=== PATIENT | male | born 1965 | race African-American/Black ===

== ENCOUNTER 2017-01-11 15:23 | Inpatient (IN) | payer OTHER ==
[2017-01-11 16:14] VITALS: BMI 24.1
--- NOTE | 2017-01-11 16:48 | HP ---
COWS - Scale Resting Pulse: 1= [place] 81-100 Sweatin=Flushed/Facial Moisture Restless Observation: 1= Difficult to Sit Still Pupil Size: 2= Moderately Dilated Bone or Joint Aches: 2= Severe Diffuse Aches Runny Nose/ Eye Tearin= Runny Nose/Eyes GI Upset > 30mins: 2= Nausea/Diarrhea Tremor Observation: 2= Slight Tremor Visible Yawning Observation: 1= 1-2x During Session Anxiety or Irritability: 2=Irritable/Anxious Goose Flesh Skin: 0=Smooth Skin COWS Score: 17 CIWA Score - CIWA Score Nausea/Vomitin Muscle Tremors: 4-Moderate,w/Arms Extend Anxiety: 4-Mod. Anxious/Guarded Agitation: 4-Moderately Restless Paroxysmal Sweats: 3 Orientation: 2-Disoriented Date<2 days Tacttile Disturbances: 0-None Auditory Disturbances: 0-None Visual Disturbances: 0-None Headache: 0-None Present CIWA-Ar Total Score: 20 Admission ROS BHS - HPI Chief Complaint: Withdrawal sx. Allergies/Adverse Reactions: Allergies Allergy/AdvReac Type Severity Reaction Status Date / Time shellfish derived Allergy Severe Rash Verified 01/11/17 16:15 turkey Allergy Severe Rash Verified 01/11/17 16:15 Penicillins Allergy Difficulty Verified 01/11/17 16:15 Breathing turkey Allergy Severe Rash Uncoded 01/11/17 16:15 History of Present Illness: 51 y/o man with a long hx of heroin & alcohol dependence is admitted for detox. Pt. has been in previous detox, denies significant sobriety or drug free. Exam Limitations: No Limitations - Ebola screening Have you traveled outside of the country in the last 21 days: No Have you had contact with anyone from an Ebola affected area: No Have you been sick,other than usual withdrawal symptoms: No Do you have a fever: No - Review of Systems Constitutional: Diaphoresis EENT: reports: Nose Congestion Respiratory: reports: No Symptoms reported Cardiac: reports: No Symptoms Reported GI: reports: No Symptoms Reported : reports: No Symptoms Reported Musculoskeletal: reports: Back Pain, Joint Pain Integumentary: reports: Sweating Neuro: reports: Tremors Endocrine: reports: No Symptoms Reported Hematology: reports: No Symptoms Reported Psychiatric: reports: No Sypmtoms Reported Other Systems: Reviewed and Negative Patient History - Patient Medical History Hx Anemia: No Hx Asthma: Yes Hx Chronic Obstructive Pulmonary Disease (COPD): Yes Hx Cancer: No Hx Cardiac Disorders: No Hx Congestive Heart Failure: No Hx Hypertension: Yes Hx Hypercholesterolemia: No Hx Pacemaker: No HX Cerebrovascular Accident: No Hx Seizures: No Hx Dementia: No Hx Diabetes: No Hx Gastrointestinal Disorders: No Hx Liver Disease: No Hx Genitourinary Disorders: No Hx Sexually Transmitted Disorders: No Hx Renal Disease (ESRD): No Hx Thyroid Disease: No Hx Human Immunodeficiency Virus (HIV): No Hx Hepatitis C: No Hx Depression: Yes Hx Suicide Attempt: No Hx Bipolar Disorder: No Hx Schizophrenia: No - Patient Surgical History Past Surgical History: No Hx Neurologic Surgery: No Hx Cataract Extraction: No Hx Cardiac Surgery: No Hx Lung Surgery: No Hx Breast Surgery: No Hx Breast Biopsy: No Hx Abdominal Surgery: No Hx Appendectomy: No Hx Cholecystectomy: No Hx Genitourinary Surgery: No Hx Section: No Hx Orthopedic Surgery: No Anesthesia Reaction: No - PPD History Previous Implant?: Yes Documented Results: Negative w/proof Implanted On Prior [facility] Admission?: Yes Date: 11/09/15 Results: 0 mm PPD to be Administered?: Yes - Smoking Cessation Smoking history: Current every day smoker Have you smoked in the past 12 months: Yes Aproximately how many cigarettes per day: 10 Hx Chewing Tobacco Use: No Initiated information on smoking cessation: Yes 'Breaking Loose' booklet given: 01/11/17 - Substance & Tx. History Hx Alcohol Use: Yes Hx Substance Use: Yes Substance Use Type: Alcohol, Heroin Hx Substance Use Treatment: Yes (Detox, last at [facility] in 10/2015) - Substances Abused Alcohol Route: Oral Frequency: Daily Amount used: Vodka 2 pints Age of first use: 13 Date of Last Use: 01/11/17 Heroin Route: Inhalation Frequency: Daily Amount used: 9 bags Age of first use: 37 Date of Last Use: 01/11/17 Family Disease History - Family Disease History Family Disease History: Heart Disease: Mother, CA: Father (ALCOHOLIC), Other: Father Admission Physical Exam BHS - Vital Signs Vital Signs: Vital Signs - 24 hr 01/11/17 16:11 Temperature 97.7 F Pulse Rate 93 H Respiratory 20 Rate Blood Pressure 111/67 - Physical General Appearance: Yes: Alcohol on Breath, Tremorous, Irritable, Sweating, Anxious HEENTM: Yes: Within Normal Limits Respiratory: Yes: Chest Non-Tender, Lungs Clear Neck: Yes: Supple Breast: Yes: Breast Exam Deferred Cardiology: Yes: Regular Rhythm, Regular Rate, S1, S2 Abdominal: Yes: Normal Bowel Sounds, Non Tender, Soft Genitourinary: Yes: Within Normal Limits Back: Yes: Within Normal Limits Musculoskeletal: Yes: Within Normal Limits Extremities: Yes: Tremors Neurological: Yes: Fully Oriented, Alert Integumentary: Yes: Diaphoresis Lymphatic: Yes: Within Normal Limits - Diagnostic (1) Alcohol dependence with uncomplicated withdrawal Current Visit: Yes Status: Acute (2) Opioid dependence with withdrawal Current Visit: Yes Status: Acute (3) Asthma Current Visit: Yes Status: Chronic Qualifiers: Asthma severity: mild persistent Asthma complication type: with status asthmaticus Qualified Code(s): J45.32 - Mild persistent asthma with status asthmaticus (4) COPD (chronic obstructive pulmonary disease) Current Visit: Yes Status: Chronic Qualifiers: COPD type: emphysema Emphysema type: panlobular Qualified Code(s ): J43.1 - Panlobular emphysema Cleared for Admission S - Detox or Rehab [facility] Level of Care: Medically Managed Detox Regimen/Protocol: Methadone/Librium [facility] Breath Alcohol Content Breath Alcohol Content: 0.126 Urine Drug Screen - Results Drug Screen Negative: No Urine Drug Screen Results: OPI-Opiates, BZO-Benzodiazepines, MTD-Methadone
[2017-01-11] MEDS ORDERED: NICOTINE POLACRILEX 2 MG GUM BC PRN (16:53)
[2017-01-11] MEDS ORDERED: MAG HYDROX/AL HYDROX/SIMETH 30 ML UNIT-DOSE CUP PO PRN (16:53)
[2017-01-11] MEDS ORDERED: MAGNESIUM HYDROX 2400MG/30ML ORAL SUSPENSION 30 ML CUP PO PRN (16:53)
[2017-01-11] MEDS ORDERED: MAGNESIUM CITRATE 300 ML BOTTLE PO PRN (16:53)
[2017-01-11] MEDS ORDERED: LOPERAMIDE HCL 2 MG CAPSULE PO PRN (16:53)
[2017-01-11] MEDS ORDERED: hydrOXYzine PAMOATE 50 MG CAPSULE (FP) PO PRN (16:53)
[2017-01-11] MEDS ORDERED: METHADONE HCL 10 MG TABLET (FOR DETOX USE ONLY) PO ONE ×2 (16:53→23:00)
[2017-01-11] MEDS ORDERED: P-EPHED 60MG/TRIPROLIDI 2.5MG TABLET PO PRN (16:53)
[2017-01-11] MEDS ORDERED: guaiFENesin/D-METHORPHAN HB 10 ML UNIT-DOSE CUPS PO PRN (16:53)
[2017-01-11] MEDS ORDERED: chlordiazePOXIDE HCL 25 MG CAPSULE PO PRN (16:53)
[2017-01-11] MEDS ORDERED: MENTHOL/PHENOL 1 EACH UD MM PRN (16:53)
[2017-01-11] MEDS ORDERED: ALBUTEROL SO4 6.7 GM HFA INHALER IH PRN (16:56)
[2017-01-11] MEDS: NICOTINE 21 MG/24 HOURS TOPICAL PATCH TD SCH (17:40)
[2017-01-11] MEDS: chlordiazePOXIDE HCL 25 MG CAPSULE PO SCH ×2 (17:46→22:23)
[2017-01-11] MEDS: amLODIPine BESYLATE 10 MG TABLET (FP) PO SCH (17:47)
[2017-01-11 19:39] LABS: PH,URINE 5.5 (5.0-8.0); URINE APPEARANCE CLEAR; URINE BILIRUBIN 1+ (NEGATIVE); URINE BLOOD TRACE-INTA (NEGATIVE); URINE COLOR YELLOW; URINE GLUCOSE (UA) NEGATIVE (NEGATIVE); URINE KETONE NEGATIVE (NEGATIVE); URINE LEUK ESTERASE NEGATIVE (NEGATIVE); URINE NITRITE NEGATIVE (NEGATIVE); URINE PROTEIN 1+ (NEGATIVE); URINE UROBILINOGEN 0.2 mg/dL (0.2-1.0)
[2017-01-11 19:52] LABS: URINE BACTERIA RARE /hpf (NONE SEEN); URINE HYALINE CAST 50 /lpf; URINE MUCUS MANY; URINE RBC 4 /hpf (0-3); URINE WBC 4 /hpf (3-5)
[2017-01-11] MEDS: BUDESONIDE/FORMETEROL FUMARATE 80/4.5 mcg INHALER IH SCH (22:24)
[2017-01-11] MEDS: THIAMINE HCL 100 MG TABLET (FP) PO SCH (22:24)
[2017-01-11] MEDS: diphenhydrAMINE HCL 50 MG CAPSULE PO PRN (22:25)
[2017-01-12] MEDS: chlordiazePOXIDE HCL 25 MG CAPSULE PO SCH ×4 (05:35→22:32)
--- NOTE | 2017-01-12 09:32 | EKG ---
Test Reason : Blood Pressure : / mmHG Vent. Rate : 077 BPM Atrial Rate : 077 BPM P-R Int : 168 ms QRS Dur : 090 ms QT Int : 380 ms P-R-T Axes : 076 067 060 degrees QTc Int : 430 ms NORMAL SINUS RHYTHM POSSIBLE LEFT ATRIAL ENLARGEMENT SEPTAL INFARCT , AGE UNDETERMINED ABNORMAL ECG NO PREVIOUS ECGS AVAILABLE Confirmed by TAMMI WADSWORTH MD ([id number]) on 01/12/2017 9:31:43 AM Referred By: Confirmed By:TAMMI WADSWORTH MD
[2017-01-12] MEDS ORDERED: METHADONE HCL 10 MG TABLET (FOR DETOX USE ONLY) PO SCH (10:00)
--- NOTE | 2017-01-12 10:15 | CONSULT ---
[facility] Psychiatric Consult - Data Date of interview: 01/12/17 Admission source: [facility] Identifying data: Readmission to [facility] for this 51 y/o AA male seeking detox treatment on for heroin and alcohol dependence.Patient is single without children,homeless,unemployed and deprived of any form of financial assistance. Substance Abuse History: Fully discussed with patient in this interview.Mr Zurita affirms that this report is a true reflection of his patterns of substance use. Smoking Cessation. Smoking history: Current every day smoker. Have you smoked in the past 12 months: Yes. Aproximately how many cigarettes per day: 10. Hx Chewing Tobacco Use: No. Initiated information on smoking cessation: Yes. 'Breaking Loose' booklet given: 01/11/17. - Substance & Tx. History. Hx Alcohol Use: Yes. Hx Substance Use: Yes. Substance Use Type: Alcohol, Heroin. Hx Substance Use Treatment: Yes (Detox, last at [facility] in 10/2015 ). - Substances Abused. Alcohol. Route: Oral. Frequency: Daily. Amount used: Vodka 2 pints. Age of first use: 13. Date of Last Use: 01/11/17. Heroin. Route: Inhalation. Frequency: Daily. Amount used: 9 bags. Age of first use: 37. Date of Last Use: 01/11/17 Medical History: Bronchial asthma and hypertension. Psychiatric History: Patient denies. Physical/Sexual Abuse/Trauma History: Patient denies. Additional Comment: Urine Drug Screen Results: OPI-Opiates, BZO-Benzodiazepines , MTD-Methadone.Noted. Mental Status Exam - Mental Status Exam Alert and Oriented to: Time, Place, Person Cognitive Function: Good Patient Appearance: Well Groomed Mood: Hopeful, Euthymic Affect: Appropriate, Normal Range Patient Behavior: Fatigued, Appropriate, Cooperative Speech Pattern: Clear Voice Loudness: Normal Thought Process: Goal Oriented Thought Disorder: Not Present Hallucinations: Denies Suicidal Ideation: Denies Homicidal Ideation: Denies Insight/Judgement: Poor Sleep: Poorly, Difficulty falling asleep Appetite: Good Muscle strength/Tone: Normal Gait/Station: Normal Psychiatric Findings - Problem List ([place] 1, 2,3) (1) Alcohol dependence with uncomplicated withdrawal Current Visit: Yes Status: Acute (2) Opioid dependence with withdrawal Current Visit: Yes Status: Acute (3) Nicotine dependence Current Visit: Yes Status: Acute Qualifiers: Nicotine product type: cigarettes Substance use status: uncomplicated Qualified Code(s): F17.210 - Nicotine dependence, cigarettes, uncomplicated (4) Drug-induced mood disorder Current Visit: Yes Status: Acute (5) Asthma Current Visit: Yes Status: Chronic Qualifiers: Asthma severity: mild persistent Asthma complication type: with status asthmaticus Qualified Code(s): J45.32 - Mild persistent asthma with status asthmaticus (6) COPD (chronic obstructive pulmonary disease) Current Visit: Yes Status: Chronic Qualifiers: COPD type: emphysema Emphysema type: panlobular Qualified Code(s ): J43.1 - Panlobular emphysema (7) Hypertension Current Visit: Yes Status: Chronic Qualifiers: Hypertension type: essential hypertension Qualified Code(s): I10 - Essential (primary) hypertension (8) Insomnia Current Visit: Yes Status: Acute - Initial Treatment Plan Initial Treatment Plan: Psychoeducation.Detoxification is under way.Ambien 10 mg po hs prn is prescribed to address insomnia.Patient is made aware of the potential for parasomnias.Consent (verbal) given to this designer/writer.Observation.
[2017-01-12] MEDS: PRENATAL VITAMINS W/ FOLIC ACID TABLET (FP) PO SCH (10:25)
[2017-01-12] MEDS: amLODIPine BESYLATE 10 MG TABLET (FP) PO SCH (10:25)
[2017-01-12] MEDS: NICOTINE 21 MG/24 HOURS TOPICAL PATCH TD SCH (10:25)
[2017-01-12 10:38] LABS: MCHC 33.4 g/dl (32.0-35.9); MEAN CELL VOLUME 86.9 fl (80-96); MEAN PLT VOLUME 8.8 fl (7.5-11.1); PLATELET COUNT 318 K/MM3 (134-434); RDW 14.4 % (11.9-15.9)
--- NOTE | 2017-01-12 10:38 | PN ---
[facility] CIWA - CIWA Score Nausea/Vomitin-Mild Nausea/No Vomiting Muscle Tremors: 3 Anxiety: 4-Mod. Anxious/Guarded Agitation: 3 Paroxysmal Sweats: 3 Orientation: 0-Oriented Tacttile Disturbances: 0-None Auditory Disturbances: 0-None Visual Disturbances: 0-None Headache: 0-None Present CIWA-Ar Total Score: 14 BHS COWS - Scale Resting Pulse: 0= [place] 80 or Below Sweatin=Flushed/Facial Moisture Restless Observation: 1= Difficult to Sit Still Pupil Size: 0= Normal to Room Light Bone or Joint Aches: 1= Mild Discomfort Runny Nose/ Eye Tearin= Runny Nose/Eyes GI Upset > 30mins: 2= Nausea/Diarrhea Tremor Observation of Outstretched Hands: 2= Slight Tremor Visible Yawning Observation: 1= 1-2x During Session Anxiety or Irritability: 2=Irritable/Anxious Goose Flesh Skin: 0=Smooth Skin COWS Score: 13 [facility] Progress Note (SOAP) Subjective: Anxiety,tremors,sweating,interrupted sleep,muscle aches,nausea. Objective: 01/12/17 10:38 Vital Signs - 8 hr 01/12/17 01/12/17 01/12/17 03:30 06:31 07:45 Temperature 97.3 F L Pulse Rate 76 72 Respiratory 18 18 Rate Blood Pressure 167/98 127/84 01/12/17 09:38 Temperature 97.0 F L Pulse Rate 77 Respiratory 20 Rate Blood Pressure 152/99 Laboratory Tests 01/11/17 19:00 Urine Color Yellow Urine Appearance Clear Urine pH 5.5 Ur Specific [place] >= 1.030 H Urine Protein 1+ H Urine Glucose (UA) Negative Urine Ketones Negative Urine Blood Trace-inta Urine Nitrite Negative Urine Bilirubin 1+ H Urine Urobilinogen 0.2 Ur Leukocyte Esterase Negative Urine RBC 4 Urine WBC 4 Ur Epithelial Cells Rare Urine Bacteria Rare Hyaline Casts 50 Urine Mucus Many u/a noted Assessment: 01/12/17 10:40 Withdrawal sx. Plan: Continue detox
[2017-01-12 10:49] LABS: ALBUMIN 3.3 g/dl (3.4-5.0); ANION GAP 7 (8-16); CALCIUM 8.9 mg/dL (8.5-10.1); CO2 27 mmol/L (21-32); GLUCOSE,RANDOM 103 mg/dL (74-106)
[2017-01-12 10:54] LABS: ALK PHOS 96 U/L (45-117); BILIRUBIN,TOTAL 0.2 mg/dL (0.2-1.0); CREATININE 1.1 mg/dL (0.7-1.3); SGOT/AST 16 U/L (15-37); SGPT/ALT 27 U/L (12-78); TOT PROT 6.7 g/dl (6.4-8.2)
[2017-01-12] MEDS: BUDESONIDE/FORMETEROL FUMARATE 80/4.5 mcg INHALER IH SCH ×2 (11:00→22:31)
[2017-01-12] MEDS: THIAMINE HCL 100 MG TABLET (FP) PO SCH (22:32)
[2017-01-12] MEDS: ZOLPIDEM TARTRATE 10 MG TABLET (PARK CARE ONLY) PO PRN (22:34)
[2017-01-13] MEDS: chlordiazePOXIDE HCL 25 MG CAPSULE PO SCH ×2 (05:28→10:25)
[2017-01-13] MEDS ORDERED: cloNIDine HCL 0.1 MG TABLET PO ONE (07:16)
--- NOTE | 2017-01-13 07:19 | PN ---
[facility] Progress Note Note: BP 146/104,WITHDRAWAL SYMPTOM,CLONIDINE 0.1 MG PO NOW
[2017-01-13] MEDS: NICOTINE 21 MG/24 HOURS TOPICAL PATCH TD SCH (10:25)
[2017-01-13] MEDS: amLODIPine BESYLATE 10 MG TABLET (FP) PO SCH (10:25)
[2017-01-13] MEDS: METHADONE HCL 5 MG TABLET (FOR DETOX USE ONLY) PO SCH (10:25)
[2017-01-13] MEDS: PRENATAL VITAMINS W/ FOLIC ACID TABLET (FP) PO SCH (10:25)
[2017-01-13] MEDS: BUDESONIDE/FORMETEROL FUMARATE 80/4.5 mcg INHALER IH SCH ×2 (10:26→22:34)
--- NOTE | 2017-01-13 12:48 | PN ---
[facility] CIWA - CIWA Score Nausea/Vomitin-No Nausea/No Vomiting Muscle Tremors: 3 Anxiety: 4-Mod. Anxious/Guarded Agitation: 3 Paroxysmal Sweats: 3 Orientation: 0-Oriented Tacttile Disturbances: 0-None Auditory Disturbances: 0-None Visual Disturbances: 0-None Headache: 0-None Present CIWA-Ar Total Score: 13 [facility] COWS - Scale Resting Pulse: 0= [place] 80 or Below Sweatin=Flushed/Facial Moisture Restless Observation: 1= Difficult to Sit Still Pupil Size: 0= Normal to Room Light Bone or Joint Aches: 1= Mild Discomfort Runny Nose/ Eye Tearin= Nasal Congestion GI Upset > 30mins: 1= Stomach Cramp Tremor Observation of Outstretched Hands: 2= Slight Tremor Visible Yawning Observation: 1= 1-2x During Session Anxiety or Irritability: 2=Irritable/Anxious Goose Flesh Skin: 0=Smooth Skin COWS Score: 11 S Progress Note (SOAP) Subjective: Sweating,interrupted sleep,anxiety,tremors,restless,muscle aches Objective: 01/13/17 12:45 Vital Signs - 8 hr 01/13/17 01/13/17 06:26 09:58 Temperature 97.9 F 99.0 F Pulse Rate 65 75 Respiratory 18 20 Rate Blood Pressure 145/94 135/97 Laboratory Tests 01/11/17 01/12/17 01/12/17 19:00 07:00 07:00 WBC 8.0 RBC 4.62 Hgb 13.4 Hct 40.1 MCV 86.9 MCH 29.0 MCHC 33.4 RDW 14.4 D Plt Count 318 MPV 8.8 Sodium 139 Potassium 3.9 Chloride 105 Carbon Dioxide 27 Anion Gap 7 L BUN 19 H Creatinine 1.1 Creat Clearance w eGFR > 60 Random Glucose 103 Calcium 8.9 Total Bilirubin 0.2 D AST 16 ALT 27 Alkaline Phosphatase 96 Total Protein 6.7 Albumin 3.3 L Urine Color Yellow Urine Appearance Clear Urine pH 5.5 Ur Specific [place] >= 1.030 H Urine Protein 1+ H Urine Glucose (UA) Negative Urine Ketones Negative Urine Blood Trace-inta Urine Nitrite Negative Urine Bilirubin 1+ H Urine Urobilinogen 0.2 Ur Leukocyte Esterase Negative Urine RBC 4 Urine WBC 4 Ur Epithelial Cells Rare Urine Bacteria Rare Hyaline Casts 50 Urine Mucus Many RPR Titer 01/12/17 07:00 WBC RBC Hgb Hct MCV MCH MCHC RDW Plt Count MPV Sodium Potassium Chloride Carbon Dioxide Anion Gap BUN Creatinine Creat Clearance w eGFR Random Glucose Calcium Total Bilirubin AST ALT Alkaline Phosphatase Total Protein Albumin Urine Color Urine Appearance Urine pH Ur Specific [place] Urine Protein Urine Glucose (UA) Urine Ketones Urine Blood Urine Nitrite Urine Bilirubin Urine Urobilinogen Ur Leukocyte Esterase Urine RBC Urine WBC Ur Epithelial Cells Urine Bacteria Hyaline Casts Urine Mucus RPR Titer Nonreactive labs noted Assessment: 01/13/17 12:47 Withdrawal sx. Plan: Continue detox
[2017-01-13] MEDS: chlordiazePOXIDE 5 MG CAPSULE PO SCH ×2 (17:23→22:30)
[2017-01-13] MEDS: THIAMINE HCL 100 MG TABLET (FP) PO SCH (22:30)
[2017-01-13] MEDS: ZOLPIDEM TARTRATE 10 MG TABLET (PARK CARE ONLY) PO PRN (22:32)
[2017-01-13] MEDS: TOLNAFTATE 1% CREAM 15 GM TUBE TP SCH (22:33)
[2017-01-14] MEDS: ACETAMINOPHEN 325 MG TABLET (FP) PO PRN (01:15)
[2017-01-14] MEDS: chlordiazePOXIDE 5 MG CAPSULE PO SCH ×2 (05:46→10:33)
[2017-01-14] MEDS ORDERED: cloNIDine HCL 0.1 MG TABLET PO ONE (06:36)
[2017-01-14] MEDS: METHADONE HCL 5 MG TABLET (FOR DETOX USE ONLY) PO SCH (10:33)
[2017-01-14] MEDS: amLODIPine BESYLATE 10 MG TABLET (FP) PO SCH (10:33)
[2017-01-14] MEDS: PRENATAL VITAMINS W/ FOLIC ACID TABLET (FP) PO SCH (10:33)
[2017-01-14] MEDS: TOLNAFTATE 1% CREAM 15 GM TUBE TP SCH ×2 (10:34→22:18)
[2017-01-14] MEDS: BUDESONIDE/FORMETEROL FUMARATE 80/4.5 mcg INHALER IH SCH ×2 (10:34→22:18)
[2017-01-14] MEDS: NICOTINE 21 MG/24 HOURS TOPICAL PATCH TD SCH ×2 (10:34→10:36)
--- NOTE | 2017-01-14 10:56 | PN ---
[facility] Progress Note (SOAP) Subjective: Sweating, Hot / Cold sensations, Chills, Diarrhea, Interrupted Sleep, Body Aches. Objective: PT. A & O X 3, OBSERVED AMBULATING ON UNIT. NO ACUTE DISTRESS. PT. DENIES CHEST PAIN. 01/14/17 10:54 Vital Signs Temperature 98.3 F 01/14/17 09:58 Pulse Rate 70 01/14/17 09:58 Respiratory Rate 18 01/14/17 09:58 Blood Pressure 131/90 01/14/17 09:58 O2 Sat by Pulse Oximetry (%) Laboratory Tests 01/11/17 01/12/17 01/12/17 19:00 07:00 07:00 WBC 8.0 RBC 4.62 Hgb 13.4 Hct 40.1 MCV 86.9 MCH 29.0 MCHC 33.4 RDW 14.4 D Plt Count 318 MPV 8.8 Sodium 139 Potassium 3.9 Chloride 105 Carbon Dioxide 27 Anion Gap 7 L BUN 19 H Creatinine 1.1 Creat Clearance w eGFR > 60 Random Glucose 103 Calcium 8.9 Total Bilirubin 0.2 D AST 16 ALT 27 Alkaline Phosphatase 96 Total Protein 6.7 Albumin 3.3 L Urine Color Yellow Urine Appearance Clear Urine pH 5.5 Ur Specific [place] >= 1.030 H Urine Protein 1+ H Urine Glucose (UA) Negative Urine Ketones Negative Urine Blood Trace-inta Urine Nitrite Negative Urine Bilirubin 1+ H Urine Urobilinogen 0.2 Ur Leukocyte Esterase Negative Urine RBC 4 Urine WBC 4 Ur Epithelial Cells Rare Urine Bacteria Rare Hyaline Casts 50 Urine Mucus Many RPR Titer 01/12/17 07:00 WBC RBC Hgb Hct MCV MCH MCHC RDW Plt Count MPV Sodium Potassium Chloride Carbon Dioxide Anion Gap BUN Creatinine Creat Clearance w eGFR Random Glucose Calcium Total Bilirubin AST ALT Alkaline Phosphatase Total Protein Albumin Urine Color Urine Appearance Urine pH Ur Specific [place] Urine Protein Urine Glucose (UA) Urine Ketones Urine Blood Urine Nitrite Urine Bilirubin Urine Urobilinogen Ur Leukocyte Esterase Urine RBC Urine WBC Ur Epithelial Cells Urine Bacteria Hyaline Casts Urine Mucus RPR Titer Nonreactive LABS NOTED. Assessment: 01/14/17 10:55 WITHDRAWAL SYMPTOMS. Plan: CONTINUE DETOX.
[2017-01-14] MEDS: chlordiazePOXIDE HCL 10 MG CAPSULE PO SCH ×2 (17:09→23:22)
[2017-01-14] MEDS: IBUPROFEN 400 MG TABLET (FP) PO PRN (22:20)
[2017-01-14] MEDS: ZOLPIDEM TARTRATE 10 MG TABLET (PARK CARE ONLY) PO PRN (22:20)
[2017-01-14] MEDS: THIAMINE HCL 100 MG TABLET (FP) PO SCH (22:21)
[2017-01-15] MEDS: chlordiazePOXIDE HCL 10 MG CAPSULE PO SCH ×2 (05:36→10:32)
[2017-01-15] MEDS ORDERED: METHADONE HCL 10 MG TABLET (FOR DETOX USE ONLY) PO SCH (10:00)
[2017-01-15] MEDS: BUDESONIDE/FORMETEROL FUMARATE 80/4.5 mcg INHALER IH SCH ×2 (10:31→22:20)
[2017-01-15] MEDS: NICOTINE 21 MG/24 HOURS TOPICAL PATCH TD SCH (10:32)
[2017-01-15] MEDS: PRENATAL VITAMINS W/ FOLIC ACID TABLET (FP) PO SCH (10:32)
[2017-01-15] MEDS: amLODIPine BESYLATE 10 MG TABLET (FP) PO SCH (10:32)
[2017-01-15] MEDS: TOLNAFTATE 1% CREAM 15 GM TUBE TP SCH ×2 (10:32→22:22)
--- NOTE | 2017-01-15 11:50 | PN ---
[facility] Progress Note (SOAP) Subjective: nausea, sweats, interrupted sleep, anxiety, tremors Objective: 01/15/17 11:33 Vital Signs - 8 hr 01/15/17 01/15/17 06:45 10:05 Temperature 97.1 F L 97 F L Pulse Rate 67 75 Respiratory 18 20 Rate Blood Pressure 130/79 113/75 Laboratory Tests 01/11/17 01/12/17 01/12/17 19:00 07:00 07:00 WBC 8.0 RBC 4.62 Hgb 13.4 Hct 40.1 MCV 86.9 MCH 29.0 MCHC 33.4 RDW 14.4 D Plt Count 318 MPV 8.8 Sodium 139 Potassium 3.9 Chloride 105 Carbon Dioxide 27 Anion Gap 7 L BUN 19 H Creatinine 1.1 Creat Clearance w eGFR > 60 Random Glucose 103 Calcium 8.9 Total Bilirubin 0.2 D AST 16 ALT 27 Alkaline Phosphatase 96 Total Protein 6.7 Albumin 3.3 L Urine Color Yellow Urine Appearance Clear Urine pH 5.5 Ur Specific [place] >= 1.030 H Urine Protein 1+ H Urine Glucose (UA) Negative Urine Ketones Negative Urine Blood Trace-inta Urine Nitrite Negative Urine Bilirubin 1+ H Urine Urobilinogen 0.2 Ur Leukocyte Esterase Negative Urine RBC 4 Urine WBC 4 Ur Epithelial Cells Rare Urine Bacteria Rare Hyaline Casts 50 Urine Mucus Many RPR Titer 01/12/17 07:00 WBC RBC Hgb Hct MCV MCH MCHC RDW Plt Count MPV Sodium Potassium Chloride Carbon Dioxide Anion Gap BUN Creatinine Creat Clearance w eGFR Random Glucose Calcium Total Bilirubin AST ALT Alkaline Phosphatase Total Protein Albumin Urine Color Urine Appearance Urine pH Ur Specific [place] Urine Protein Urine Glucose (UA) Urine Ketones Urine Blood Urine Nitrite Urine Bilirubin Urine Urobilinogen Ur Leukocyte Esterase Urine RBC Urine WBC Ur Epithelial Cells Urine Bacteria Hyaline Casts Urine Mucus RPR Titer Nonreactive Assessment: 01/15/17 11:51 withdrawal sx Plan: cont detox
[2017-01-15] MEDS: ACETAMINOPHEN 325 MG TABLET (FP) PO PRN (17:24)
[2017-01-15] MEDS: THIAMINE HCL 100 MG TABLET (FP) PO SCH (22:21)
[2017-01-15] MEDS: diphenhydrAMINE HCL 50 MG CAPSULE PO PRN (22:21)
[2017-01-16] MEDS: IBUPROFEN 400 MG TABLET (FP) PO PRN (05:28)
[2017-01-16] MEDS ORDERED: METHADONE HCL 5 MG TABLET (FOR DETOX USE ONLY) PO SCH (06:00)
[2017-01-16 06:40] VITALS: BP 127/85; PULSE 74; TEMP 97.6
[2017-01-16] MEDS: NICOTINE 21 MG/24 HOURS TOPICAL PATCH TD SCH (10:06)
[2017-01-16] MEDS: amLODIPine BESYLATE 10 MG TABLET (FP) PO SCH (10:06)
[2017-01-16] MEDS: BUDESONIDE/FORMETEROL FUMARATE 80/4.5 mcg INHALER IH SCH (10:07)
[2017-01-16] MEDS: PRENATAL VITAMINS W/ FOLIC ACID TABLET (FP) PO SCH (10:07)
[2017-01-16] MEDS: TOLNAFTATE 1% CREAM 15 GM TUBE TP SCH (10:07)
--- NOTE | 2017-01-16 10:30 | DS ---
[facility] Detox Discharge Summary Admission Date: 01/11/17 Discharge Date: 01/16/17 - History Present History: Alcohol Dependence, Cannabis Dependence, Opioid Dependence Pertinent Past History: HTN Asthma COPD - Physical Exam Results Vital Signs: Vital Signs Temperature 97.6 F 01/16/17 06:40 Pulse Rate 74 01/16/17 06:40 Respiratory Rate 18 01/16/17 06:40 Blood Pressure 127/85 01/16/17 06:40 O2 Sat by Pulse Oximetry (%) Pertinent Admission Physical Exam Findings: Withdrawal sx. Laboratory Last Values WBC 8.0 K/mm3 (4.0-10.0) 01/12/17 07:00 RBC 4.62 M/mm3 (4.00-5.60) 01/12/17 07:00 Hgb 13.4 GM/dL (11.7-16.9) 01/12/17 07:00 Hct 40.1 % (35.4-49) 01/12/17 07:00 MCV 86.9 fl (80-96) 01/12/17 07:00 MCH 29.0 pg (25.7-33.7) 01/12/17 07:00 MCHC 33.4 g/dl (32.0-35.9) 01/12/17 07:00 RDW 14.4 % (11.9-15.9) D 01/12/17 07:00 Plt Count 318 K/MM3 (134-434) 01/12/17 07:00 MPV 8.8 fl (7.5-11.1) 01/12/17 07:00 Sodium 139 mmol/L (136-145) 01/12/17 07:00 Potassium 3.9 mmol/L (3.5-5.1) 01/12/17 07:00 Chloride 105 mmol/L (98-107) 01/12/17 07:00 Carbon Dioxide 27 mmol/L (21-32) 01/12/17 07:00 Anion Gap 7 (8-16) L 01/12/17 07:00 BUN 19 mg/dL (7-18) H 01/12/17 07:00 Creatinine 1.1 mg/dL (0.7-1.3) 01/12/17 07:00 Creat Clearance w eGFR > 60 (>60) 01/12/17 07:00 Random Glucose 103 mg/dL (74-106) 01/12/17 07:00 Calcium 8.9 mg/dL (8.5-10.1) 01/12/17 07:00 Total Bilirubin 0.2 mg/dL (0.2-1.0) D 01/12/17 07:00 AST 16 U/L (15-37) 01/12/17 07:00 ALT 27 U/L (12-78) 01/12/17 07:00 Alkaline Phosphatase 96 U/L (45-117) 01/12/17 07:00 Total Protein 6.7 g/dl (6.4-8.2) 01/12/17 07:00 Albumin 3.3 g/dl (3.4-5.0) L 01/12/17 07:00 Urine Color Yellow 01/11/17 19:00 Urine Appearance Clear 01/11/17 19:00 Urine pH 5.5 (5.0-8.0) 01/11/17 19:00 Ur Specific [place] >= 1.030 (1.005-1.025) H 01/11/17 19:00 Urine Protein 1+ (NEGATIVE) H 01/11/17 19:00 Urine Glucose (UA) Negative (NEGATIVE) 01/11/17 19:00 Urine Ketones Negative (NEGATIVE) 01/11/17 19:00 Urine Blood Trace-inta (NEGATIVE) 01/11/17 19:00 Urine Nitrite Negative (NEGATIVE) 01/11/17 19:00 Urine Bilirubin 1+ (NEGATIVE) H 01/11/17 19:00 Urine Urobilinogen 0.2 mg/dL (0.2-1.0) 01/11/17 19:00 Ur Leukocyte Esterase Negative (NEGATIVE) 01/11/17 19:00 Urine RBC 4 /hpf (0-3) 01/11/17 19:00 Urine WBC 4 /hpf (3-5) 01/11/17 19:00 Ur Epithelial Cells Rare /hpf (FEW) 01/11/17 19:00 Urine Bacteria Rare /hpf (NONE SEEN) 01/11/17 19:00 Hyaline Casts 50 /lpf 01/11/17 19:00 Urine Mucus Many 01/11/17 19:00 RPR Titer Nonreactive (NONREACTIVE) 01/12/17 07:00 labs noted - Treatment Hospital Course: Detox Protocol Followed, Detoxed Safely, Responded well, Discharged Condition Good, Rehab Referral Accepted Patient has Accepted a Rehab Referral to: [facility] - Medication Discharge Medications: Ambulatory Orders Albuterol Sulfate Inhaler - [Ventolin HFA Inhaler -] 2 inh IH Q4H PRN #1 inh Amlodipine Besylate [Norvasc -] 10 mg PO DAILY #0 tablet 11/23/14 Budesonide/Formeterol Fumarate [SYMBICORT 80/4.5mcg -] 2 inh IH BID #1 inhaler 11/23/14 - Diagnosis (1) Alcohol dependence with uncomplicated withdrawal Status: Acute (2) Opioid dependence with withdrawal Status: Acute (3) Asthma Status: Chronic Qualifiers: Asthma severity: mild persistent Asthma complication type: with status asthmaticus Qualified Code(s): J45.32 - Mild persistent asthma with status asthmaticus (4) COPD (chronic obstructive pulmonary disease) Status: Chronic Qualifiers: COPD type: emphysema Emphysema type: panlobular Qualified Code(s ): J43.1 - Panlobular emphysema - AMA Did Patient Leave Against Medical Advice: No
== END 2017-01-16 10:08 | disposition home or self-care (01) | DRG 773 ==
LOC: YASAS 15:23 → Y3N 17:04
PROVIDERS: ADMIT Internal Medicine; ATTEND Internal Medicine
PROC: HZ2ZZZZ Detoxification Services for Substance Abuse Treatment (ICD-10-PCS; principal; 2017-01-11)
DX: F11.23 Opioid dependence with withdrawal (principal); F10.230 Alcohol dependence with withdrawal, uncomplicated; F17.210 Nicotine dependence, cigarettes, uncomplicated; F19.24 Other psychoactive substance dependence with psychoactive substance-induced mood disorder; J45.32 Mild persistent asthma with status asthmaticus; J43.1 Panlobular emphysema; I10 Essential (primary) hypertension; G47.00 Insomnia, unspecified; Z91.013 Allergy to seafood; Z91.018 Allergy to other foods; Z88.0 Allergy status to penicillin; Z59.0 Homelessness
CPT/HCPCS: 36415; 80053; 81003; 81015; 85027; 86593; 93005; 93010

== ENCOUNTER 2017-02-14 10:17 | Inpatient (IN) | payer OTHER ==
[2017-02-14 10:53] VITALS: BMI 24.1
--- NOTE | 2017-02-14 11:45 | HP ---
COWS - Scale Resting Pulse: 0= [place] 80 or Below Sweatin= No chills or Flushing Restless Observation: 0= Sits Still Pupil Size: 0= Normal to Room Light Bone or Joint Aches: 1= Mild Discomfort Runny Nose/ Eye Tearin= Nasal Congestion GI Upset > 30mins: 1= Stomach Cramp Tremor Observation: 1= Tremor [place], Not Seen Yawning Observation: 1= 1-2x During Session Anxiety or Irritability: 1=Feels Anxious/Irritable Goose Flesh Skin: 0=Smooth Skin COWS Score: 6 CIWA Score - CIWA Score Nausea/Vomitin-Mild Nausea/No Vomiting Muscle Tremors: 4-Moderate,w/Arms Extend Anxiety: 4-Mod. Anxious/Guarded Agitation: 1-Slight > Activity Paroxysmal Sweats: 1-Minimal Palms Moist Orientation: 0-Oriented Tacttile Disturbances: 1-Very Mild Itch/Numbness Auditory Disturbances: 1-Very Mild Visual Disturbances: 1-Very Mild Sensitivity Headache: 2-Mild CIWA-Ar Total Score: 16 Admission [facility] - HPI Chief Complaint: I need help to stop Allergies/Adverse Reactions: Allergies Allergy/AdvReac Type Severity Reaction Status Date / Time shellfish derived Allergy Severe Rash Verified 01/11/17 16:15 turkey Allergy Severe Rash Verified 01/11/17 16:15 Penicillins Allergy Difficulty Verified 01/11/17 16:15 Breathing turkey Allergy Severe Rash Uncoded 01/11/17 16:15 History of Present Illness: 52 yo gentleman here for detox from alcohol and heroin - no seizures, previously here in detox 01/14/17 but unable to get bed at [facility] rehab and relapsed. Exam Limitations: Clinical Condition - Ebola screening Have you traveled outside of the country in the last 21 days: No Have you had contact with anyone from an Ebola affected area: No Have you been sick,other than usual withdrawal symptoms: No Do you have a fever: No - Review of Systems Constitutional: Loss of Appetite, Night Sweats, Changes in sleep EENT: reports: Blurred Vision, Nose Congestion Respiratory: reports: No Symptoms reported Cardiac: reports: No Symptoms Reported GI: reports: Nausea, Poor Appetite : reports: No Symptoms Reported Musculoskeletal: reports: Back Pain, Muscle Pain Integumentary: reports: No Symptoms Reported Neuro: reports: Headache, Tremors Endocrine: reports: No Symptoms Reported Hematology: reports: No Symptoms Reported Psychiatric: reports: Judgement Intact, Mood/Affect Appropiate, Orientated x3 Other Systems: Reviewed and Negative Patient History - Patient Medical History Hx Anemia: No Hx Asthma: Yes Hx Chronic Obstructive Pulmonary Disease (COPD): Yes (no meds x 1 yeara) Hx Cancer: No Hx Cardiac Disorders: No Hx Congestive Heart Failure: No Hx Hypertension: Yes Hx Hypercholesterolemia: No Hx Pacemaker: No HX Cerebrovascular Accident: No Hx Seizures: No Hx Dementia: No Hx Diabetes: No Hx Gastrointestinal Disorders: No Hx Liver Disease: No Hx Genitourinary Disorders: No Hx Sexually Transmitted Disorders: No Hx Renal Disease (ESRD): No Hx Thyroid Disease: No Hx Human Immunodeficiency Virus (HIV): No Hx Hepatitis C: No Hx Depression: Yes Hx Suicide Attempt: No Hx Bipolar Disorder: No Hx Schizophrenia: No - Patient Surgical History Past Surgical History: No Hx Neurologic Surgery: No Hx Cataract Extraction: No Hx Cardiac Surgery: No Hx Lung Surgery: No Hx Breast Surgery: No Hx Breast Biopsy: No Hx Abdominal Surgery: No Hx Appendectomy: No Hx Cholecystectomy: No Hx Genitourinary Surgery: No Hx Section: No Hx Orthopedic Surgery: No Anesthesia Reaction: No - PPD History Previous Implant?: Yes Documented Results: Negative w/proof Date: 01/13/17 Results: 0 mm PPD to be Administered?: No - Reproductive History Patient is a Female of Child Bearing Age (11 -55 yrs old): No - Smoking Cessation Smoking history: Current every day smoker Have you smoked in the past 12 months: Yes Aproximately how many cigarettes per day: 20 Hx Chewing Tobacco Use: No Initiated information on smoking cessation: Yes 'Breaking Loose' booklet given: 02/14/17 - Substance & Tx. History Hx Alcohol Use: Yes Hx Substance Use: Yes Substance Use Type: Alcohol, Heroin Hx Substance Use Treatment: Yes (detox, suboxone) - Substances Abused Alcohol Route: Oral Frequency: Daily Amount used: 1-2 pints Age of first use: 15 Date of Last Use: 02/13/17 Heroin Route: Inhalation Frequency: Daily Amount used: 7 bags Age of first use: 26 Date of Last Use: 02/13/17 Family Disease History - Family Disease History Family Disease History: Heart Disease: Mother (), CA: Father (, ALCOHOLIC), Other: Father, Mother Admission Physical Exam [facility] - Vital Signs Vital Signs: Vital Signs - 24 hr 02/14/17 10:51 Temperature 96.5 F L Pulse Rate 61 Respiratory 20 Rate Blood Pressure 103/68 - Physical General Appearance: Yes: Nourished, Appropriately Dressed, Mild Distress HEENTM: Yes: Hearing grossly Normal, Normal ENT Inspection, Normocephalic, Normal Voice Respiratory: Yes: Normal Breath Sounds, No Respiratory Distress Neck: Yes: No masses,lesions,Nodules, Supple Breast: Yes: Breast Exam Deferred Cardiology: Yes: Regular Rhythm, Regular Rate Abdominal: Yes: Soft Genitourinary: Yes: Frequency Back: Yes: Normal Inspection Musculoskeletal: Yes: full range of Motion, Gait Steady Extremities: Yes: Normal Inspection, Normal Range of Motion, Non-Tender Neurological: Yes: Fully Oriented, Alert, Normal Mood/Affect, Normal Response Integumentary: Yes: Normal Color, Warm Lymphatic: Yes: Within Normal Limits - Diagnostic (1) Opioid dependence with withdrawal Current Visit: Yes Status: Chronic (2) Alcohol dependence with uncomplicated withdrawal Current Visit: Yes Status: Chronic (3) Nicotine dependence Current Visit: Yes Status: Chronic Qualifiers: Nicotine product type: cigarettes Substance use status: uncomplicated Qualified Code(s): F17.210 - Nicotine dependence, cigarettes, uncomplicated (4) Hypertension Current Visit: Yes Status: Chronic Qualifiers: Hypertension type: essential hypertension Qualified Code(s): I10 - Essential (primary) hypertension Cleared for Admission [facility] - Detox or Rehab [facility] Level of Care: Medically Managed Detox Regimen/Protocol: Methadone/Librium [facility] Breath Alcohol Content Breath Alcohol Content: 0 Urine Drug Screen - Results Drug Screen Negative: No Urine Drug Screen Results: OPI-Opiates, BZO-Benzodiazepines, MTD-Methadone
[2017-02-14] MEDS ORDERED: diphenhydrAMINE HCL 50 MG CAPSULE PO PRN (11:49)
[2017-02-14] MEDS ORDERED: P-EPHED 60MG/TRIPROLIDI 2.5MG TABLET PO PRN (11:49)
[2017-02-14] MEDS ORDERED: MAG HYDROX/AL HYDROX/SIMETH 30 ML UNIT-DOSE CUP PO PRN (11:49)
[2017-02-14] MEDS ORDERED: MAGNESIUM CITRATE 300 ML BOTTLE PO PRN (11:49)
[2017-02-14] MEDS ORDERED: guaiFENesin/D-METHORPHAN HB 10 ML UNIT-DOSE CUPS PO PRN (11:49)
[2017-02-14] MEDS ORDERED: ACETAMINOPHEN 325 MG TABLET (FP) PO PRN (11:49)
[2017-02-14] MEDS ORDERED: MAGNESIUM HYDROX 2400MG/30ML ORAL SUSPENSION 30 ML CUP PO PRN (11:49)
[2017-02-14] MEDS ORDERED: IBUPROFEN 400 MG TABLET (FP) PO PRN (11:49)
[2017-02-14] MEDS ORDERED: LOPERAMIDE HCL 2 MG CAPSULE PO PRN (11:49)
[2017-02-14] MEDS ORDERED: MENTHOL/PHENOL 1 EACH UD MM PRN (11:49)
[2017-02-14] MEDS ORDERED: METHADONE HCL 10 MG TABLET (FOR DETOX USE ONLY) PO ONE ×3 (11:49→23:00)
[2017-02-14] MEDS ORDERED: chlordiazePOXIDE HCL 25 MG CAPSULE PO PRN (11:49)
[2017-02-14] MEDS ORDERED: hydrOXYzine PAMOATE 25 MG CAPSULE (FP) PO PRN (11:49)
[2017-02-14] MEDS ORDERED: chlordiazePOXIDE HCL 25 MG CAPSULE PO ONE (14:00)
[2017-02-14] MEDS: NICOTINE 21 MG/24 HOURS TOPICAL PATCH TD SCH (14:40)
[2017-02-14 17:40] LABS: URINE APPEARANCE SLCLOUDY; URINE BILIRUBIN NEGATIVE (NEGATIVE); URINE BLOOD NEGATIVE (NEGATIVE); URINE COLOR DKYELLOW; URINE GLUCOSE (UA) NEGATIVE (NEGATIVE); URINE KETONE TRACE (NEGATIVE); URINE LEUK ESTERASE NEGATIVE (NEGATIVE); URINE NITRITE NEGATIVE (NEGATIVE)
[2017-02-14 17:49] LABS: URINE PROTEIN 1+ (NEGATIVE)
[2017-02-14] MEDS: chlordiazePOXIDE HCL 25 MG CAPSULE PO SCH ×2 (17:50→22:52)
[2017-02-14 18:02] LABS: URINE HYALINE CAST 1 /lpf; URINE MUCUS RARE; URINE RBC 3 /hpf (0-3); URINE WBC 2 /hpf (3-5)
[2017-02-14] MEDS: THIAMINE HCL 100 MG TABLET (FP) PO SCH (22:53)
[2017-02-15] MEDS: chlordiazePOXIDE HCL 25 MG CAPSULE PO SCH ×4 (05:17→22:22)
[2017-02-15] MEDS ORDERED: METHADONE HCL 10 MG TABLET (FOR DETOX USE ONLY) PO SCH (10:00)
[2017-02-15] MEDS: PRENATAL VITAMINS W/ FOLIC ACID TABLET (FP) PO SCH (10:20)
[2017-02-15] MEDS: NICOTINE 21 MG/24 HOURS TOPICAL PATCH TD SCH (10:21)
[2017-02-15] MEDS: amLODIPine BESYLATE 10 MG TABLET (FP) PO SCH (10:21)
[2017-02-15 10:31] LABS: MCH 28.3 pg (25.7-33.7); MCHC 32.5 g/dl (32.0-35.9); MEAN PLT VOLUME 7.8 fl (7.5-11.1); PLATELET COUNT 381 K/MM3 (134-434); RDW 14.3 % (11.9-15.9); WHITE BLOOD COUNT 8.5 K/mm3 (4.0-10.0)
--- NOTE | 2017-02-15 10:37 | CONSULT ---
[facility] Psychiatric Consult - Data Date of interview: 02/15/17 Admission source: Self-referred Identifying data: Mr Zurita is a 52 years old single Black male, unemployed with no source of income, homeless seeking detox treatment for alcohol and heroin Medical History: Significant for Bronchial asthma and hypertension. Psychiatric History: Reports that in 2006, he saw a psychiatrist at a substance abuse program and was prescribed Suboxin and Abilify for depression. Claims that he only took Abilify untill his 30 days supply ran out. However since 2013 , he has had 5 inpatient detox and one inpatient rehab admissions to this facilty and for all of them he never reported prior psychiatric treatment with Abilify. When confronted about that, he got angry, walked out of the office saying:"I will get it somewhere else" Mental Status Exam - Mental Status Exam Alert and Oriented to: Time, Place, Person Cognitive Function: Fair Patient Appearance: Well Groomed Mood: Irritable Affect: Appropriate Patient Behavior: Cooperative Speech Pattern: Clear Voice Loudness: Normal Thought Process: Intact, Goal Oriented Hallucinations: Denies Suicidal Ideation: Denies Homicidal Ideation: Denies Insight/Judgement: Poor Sleep: Poorly Appetite: Good Muscle strength/Tone: Normal Gait/Station: Normal Psychiatric Findings - Problem List (Holderness 1, 2,3) (1) Substance induced mood disorder Current Visit: Yes Status: Acute (2) Alcohol dependence with uncomplicated withdrawal Current Visit: Yes Status: Chronic (3) Opioid dependence with withdrawal Current Visit: Yes Status: Chronic (4) Nicotine dependence Current Visit: Yes Status: Chronic Qualifiers: Nicotine product type: cigarettes Substance use status: uncomplicated Qualified Code(s): F17.210 - Nicotine dependence, cigarettes, uncomplicated (5) Hypertension Current Visit: Yes Status: Chronic Qualifiers: Hypertension type: essential hypertension Qualified Code(s): I10 - Essential (primary) hypertension (6) Asthma Current Visit: No Status: Chronic Qualifiers: Asthma severity: mild persistent Asthma complication type: with status asthmaticus Qualified Code(s): J45.32 - Mild persistent asthma with status asthmaticus (7) COPD (chronic obstructive pulmonary disease) Current Visit: No Status: Chronic Qualifiers: COPD type: emphysema Emphysema type: panlobular Qualified Code(s ): J43.1 - Panlobular emphysema (8) Substance-induced sleep disorder Current Visit: Yes Status: Acute - Initial Treatment Plan Initial Treatment Plan: 1) Start Ambien 10 mg po HS prn for insomnia. 2) Continue inpatient detoxification
[2017-02-15 10:49] LABS: ALBUMIN 3.3 g/dl (3.4-5.0); ANION GAP 4 (8-16); CALCIUM 8.9 mg/dL (8.5-10.1); CO2 29 mmol/L (21-32); GLUCOSE,RANDOM 80 mg/dL (74-106)
[2017-02-15 10:54] LABS: ALK PHOS 95 U/L (45-117); BILIRUBIN,TOTAL 0.3 mg/dL (0.2-1.0); SGOT/AST 19 U/L (15-37); SGPT/ALT 35 U/L (12-78)
[2017-02-15 11:10] LABS: HIV 1 & 2 AB NEGATIVE; HIV 1 AGp24 NEGATIVE
--- NOTE | 2017-02-15 18:15 | PN ---
[facility] CIWA - CIWA Score Nausea/Vomitin Muscle Tremors: 4-Moderate,w/Arms Extend Anxiety: 4-Mod. Anxious/Guarded Agitation: 4-Moderately Restless Paroxysmal Sweats: 3 Orientation: 0-Oriented Tacttile Disturbances: 1-Very Mild Itch/Numbness Auditory Disturbances: 0-None Visual Disturbances: 0-None Headache: 0-None Present CIWA-Ar Total Score: 19 S COWS - Scale Resting Pulse: 0= [place] 80 or Below Sweatin= Chills/Flushing Restless Observation: 3= Extraneous Movement Pupil Size: 0= Normal to Room Light Bone or Joint Aches: 2= Severe Diffuse Aches Runny Nose/ Eye Tearin= Runny Nose/Eyes GI Upset > 30mins: 2= Nausea/Diarrhea Tremor Observation of Outstretched Hands: 2= Slight Tremor Visible Yawning Observation: 1= 1-2x During Session Anxiety or Irritability: 2=Irritable/Anxious Goose Flesh Skin: 0=Smooth Skin COWS Score: 15 [facility] Progress Note (SOAP) Subjective: Nausea, rhinorrhea, back pain, tremor, chills Objective: 02/15/17 18:14 Last Vital Signs Temp Pulse Resp BP Pulse Ox 97.0 F L 70 18 145/96 02/15/17 13:47 02/15/17 13:47 02/15/17 13:47 02/15/17 13:47 Laboratory Tests 02/14/17 02/15/17 02/15/17 17:20 07:30 07:30 WBC 8.5 RBC 4.70 Hgb 13.3 Hct 41.0 MCV 87.0 MCH 28.3 MCHC 32.5 RDW 14.3 Plt Count 381 MPV 7.8 D Sodium 140 Potassium 4.4 Chloride 107 Carbon Dioxide 29 Anion Gap 4 L BUN 18 Creatinine 1.0 Creat Clearance w eGFR > 60 Random Glucose 80 D Calcium 8.9 Total Bilirubin 0.3 D AST 19 ALT 35 D Alkaline Phosphatase 95 Total Protein 7.0 Albumin 3.3 L Urine Color Dkyellow Urine Appearance Slcloudy Urine pH 5.0 Ur Specific [place] >= 1.030 H Urine Protein 1+ H Urine Glucose (UA) Negative Urine Ketones Trace H Urine Blood Negative Urine Nitrite Negative Urine Bilirubin Negative Urine Urobilinogen 2.0 Urine RBC 3 Urine WBC 2 Ur Epithelial Cells Rare Hyaline Casts 1 Urine Mucus Rare RPR Titer HIV 1&2 Antibody Screen HIV P24 Antigen 02/15/17 02/15/17 07:30 07:30 WBC RBC Hgb Hct MCV MCH MCHC RDW Plt Count MPV Sodium Potassium Chloride Carbon Dioxide Anion Gap BUN Creatinine Creat Clearance w eGFR Random Glucose Calcium Total Bilirubin AST ALT Alkaline Phosphatase Total Protein Albumin Urine Color Urine Appearance Urine pH Ur Specific [place] Urine Protein Urine Glucose (UA) Urine Ketones Urine Blood Urine Nitrite Urine Bilirubin Urine Urobilinogen Urine RBC Urine WBC Ur Epithelial Cells Hyaline Casts Urine Mucus RPR Titer Nonreactive HIV 1&2 Antibody Screen Negative HIV P24 Antigen Negative Labs noted: abnormal UA Assessment: 02/15/17 18:14 Withdrawal symptoms Noted with abnormal UA Plan: Continue detox Abnormal UA: encouraged to drink lots of water, repeat UA
[2017-02-15] MEDS ORDERED: cloNIDine HCL 0.1 MG TABLET PO PRN (18:17)
[2017-02-15] MEDS: THIAMINE HCL 100 MG TABLET (FP) PO SCH (22:21)
[2017-02-15] MEDS: ZOLPIDEM TARTRATE 5 MG TABLET PO PRN (22:21)
[2017-02-16] MEDS: chlordiazePOXIDE HCL 25 MG CAPSULE PO SCH ×2 (06:14→10:17)
[2017-02-16] MEDS: NICOTINE 21 MG/24 HOURS TOPICAL PATCH TD SCH (10:16)
[2017-02-16] MEDS: METHADONE HCL 5 MG TABLET (FOR DETOX USE ONLY) PO SCH (10:16)
[2017-02-16] MEDS: amLODIPine BESYLATE 10 MG TABLET (FP) PO SCH (10:16)
[2017-02-16] MEDS: PRENATAL VITAMINS W/ FOLIC ACID TABLET (FP) PO SCH (10:16)
--- NOTE | 2017-02-16 12:31 | PN ---
[facility] CIWA - CIWA Score Nausea/Vomitin-No Nausea/No Vomiting Muscle Tremors: 2 Anxiety: 4-Mod. Anxious/Guarded Agitation: 4-Moderately Restless Paroxysmal Sweats: 3 Orientation: 0-Oriented Tacttile Disturbances: 0-None Auditory Disturbances: 0-None Visual Disturbances: 0-None Headache: 0-None Present CIWA-Ar Total Score: 13 [facility] COWS - Scale Resting Pulse: 0= [place] 80 or Below Sweatin=Flushed/Facial Moisture Restless Observation: 1= Difficult to Sit Still Pupil Size: 0= Normal to Room Light Bone or Joint Aches: 2= Severe Diffuse Aches Runny Nose/ Eye Tearin= Nasal Congestion GI Upset > 30mins: 2= Nausea/Diarrhea Tremor Observation of Outstretched Hands: 2= Slight Tremor Visible Yawning Observation: 1= 1-2x During Session Anxiety or Irritability: 2=Irritable/Anxious Goose Flesh Skin: 0=Smooth Skin COWS Score: 13 S Progress Note (SOAP) Subjective: anxiety,tremors,sweating,interrupted sleep,restless. Objective: 02/16/17 12:32 Vital Signs - 8 hr 02/16/17 02/16/17 06:03 09:46 Temperature 97.1 F L 98.4 F Pulse Rate 61 72 Respiratory 18 20 Rate Blood Pressure 139/95 139/92 Laboratory Tests 02/14/17 02/15/17 02/15/17 17:20 07:30 07:30 WBC 8.5 RBC 4.70 Hgb 13.3 Hct 41.0 MCV 87.0 MCH 28.3 MCHC 32.5 RDW 14.3 Plt Count 381 MPV 7.8 D Sodium 140 Potassium 4.4 Chloride 107 Carbon Dioxide 29 Anion Gap 4 L BUN 18 Creatinine 1.0 Creat Clearance w eGFR > 60 Random Glucose 80 D Calcium 8.9 Total Bilirubin 0.3 D AST 19 ALT 35 D Alkaline Phosphatase 95 Total Protein 7.0 Albumin 3.3 L Urine Color Dkyellow Urine Appearance Slcloudy Urine pH 5.0 Ur Specific [place] >= 1.030 H Urine Protein 1+ H Urine Glucose (UA) Negative Urine Ketones Trace H Urine Blood Negative Urine Nitrite Negative Urine Bilirubin Negative Urine Urobilinogen 2.0 Urine RBC 3 Urine WBC 2 Ur Epithelial Cells Rare Hyaline Casts 1 Urine Mucus Rare RPR Titer HIV 1&2 Antibody Screen HIV P24 Antigen 02/15/17 02/15/17 07:30 07:30 WBC RBC Hgb Hct MCV MCH MCHC RDW Plt Count MPV Sodium Potassium Chloride Carbon Dioxide Anion Gap BUN Creatinine Creat Clearance w eGFR Random Glucose Calcium Total Bilirubin AST ALT Alkaline Phosphatase Total Protein Albumin Urine Color Urine Appearance Urine pH Ur Specific [place] Urine Protein Urine Glucose (UA) Urine Ketones Urine Blood Urine Nitrite Urine Bilirubin Urine Urobilinogen Urine RBC Urine WBC Ur Epithelial Cells Hyaline Casts Urine Mucus RPR Titer Nonreactive HIV 1&2 Antibody Screen Negative HIV P24 Antigen Negative labs noted Assessment: 02/16/17 12:33 Withdrawal sx. Plan: Continue detox
--- NOTE | 2017-02-16 17:02 | EKG ---
Test Reason : Blood Pressure : / mmHG Vent. Rate : 070 BPM Atrial Rate : 070 BPM P-R Int : 166 ms QRS Dur : 100 ms QT Int : 384 ms P-R-T Axes : 081 074 065 degrees QTc Int : 414 ms NORMAL SINUS RHYTHM NONSPECIFIC ST AND T WAVE ABNORMALITY ABNORMAL ECG WHEN COMPARED WITH ECG OF 11-JAN-2017 16:57, NO SIGNIFICANT CHANGE WAS FOUND Confirmed by ISSA DURANT MD ([id number]) on 02/16/2017 5:01:42 PM Referred By: Confirmed By:ISSA DURANT MD
[2017-02-16] MEDS: chlordiazePOXIDE 5 MG CAPSULE PO SCH ×2 (17:24→22:15)
[2017-02-16 21:18] LABS: URINE APPEARANCE SLCLOUDY; URINE BILIRUBIN NEGATIVE (NEGATIVE); URINE BLOOD NEGATIVE (NEGATIVE); URINE COLOR YELLOW; URINE GLUCOSE (UA) 1+ (NEGATIVE); URINE KETONE NEGATIVE (NEGATIVE); URINE LEUK ESTERASE NEGATIVE (NEGATIVE); URINE NITRITE NEGATIVE (NEGATIVE); URINE PROTEIN NEGATIVE (NEGATIVE); URINE UROBILINOGEN NEGATIVE mg/dL (0.2-1.0)
[2017-02-16] MEDS: ZOLPIDEM TARTRATE 5 MG TABLET PO PRN (22:15)
[2017-02-16] MEDS: THIAMINE HCL 100 MG TABLET (FP) PO SCH (22:15)
[2017-02-17] MEDS: chlordiazePOXIDE 5 MG CAPSULE PO SCH ×2 (06:01→10:12)
[2017-02-17 09:11] VITALS: BP 127/89; PULSE 64; TEMP 98.4
[2017-02-17] MEDS: METHADONE HCL 5 MG TABLET (FOR DETOX USE ONLY) PO SCH (10:12)
[2017-02-17] MEDS: amLODIPine BESYLATE 10 MG TABLET (FP) PO SCH (10:12)
[2017-02-17] MEDS: PRENATAL VITAMINS W/ FOLIC ACID TABLET (FP) PO SCH (10:12)
[2017-02-17] MEDS: NICOTINE 21 MG/24 HOURS TOPICAL PATCH TD SCH (10:12)
[2017-02-17] MEDS ORDERED: NICOTINE POLACRILEX 4 MG GUM BUC PRN (10:18)
--- NOTE | 2017-02-17 10:53 | PN ---
S Progress Note (SOAP) Subjective: ANXIETY,DIARRHEA,IRRITABILITY,FATIGUE. Objective: 02/17/17 10:56 Vital Signs Temperature 98.4 F 02/17/17 09:10 Pulse Rate 64 02/17/17 09:10 Respiratory Rate 18 02/17/17 09:10 Blood Pressure 127/89 02/17/17 09:10 O2 Sat by Pulse Oximetry (%) Laboratory Last Values WBC 8.5 K/mm3 (4.0-10.0) 02/15/17 07:30 RBC 4.70 M/mm3 (4.00-5.60) 02/15/17 07:30 Hgb 13.3 GM/dL (11.7-16.9) 02/15/17 07:30 Hct 41.0 % (35.4-49) 02/15/17 07:30 MCV 87.0 fl (80-96) 02/15/17 07:30 MCH 28.3 pg (25.7-33.7) 02/15/17 07:30 MCHC 32.5 g/dl (32.0-35.9) 02/15/17 07:30 RDW 14.3 % (11.9-15.9) 02/15/17 07:30 Plt Count 381 K/MM3 (134-434) 02/15/17 07:30 MPV 7.8 fl (7.5-11.1) D 02/15/17 07:30 Sodium 140 mmol/L (136-145) 02/15/17 07:30 Potassium 4.4 mmol/L (3.5-5.1) 02/15/17 07:30 Chloride 107 mmol/L (98-107) 02/15/17 07:30 Carbon Dioxide 29 mmol/L (21-32) 02/15/17 07:30 Anion Gap 4 (8-16) L 02/15/17 07:30 BUN 18 mg/dL (7-18) 02/15/17 07:30 Creatinine 1.0 mg/dL (0.7-1.3) 02/15/17 07:30 Creat Clearance w eGFR > 60 (>60) 02/15/17 07:30 Random Glucose 80 mg/dL (74-106) D 02/15/17 07:30 Calcium 8.9 mg/dL (8.5-10.1) 02/15/17 07:30 Total Bilirubin 0.3 mg/dL (0.2-1.0) D 02/15/17 07:30 AST 19 U/L (15-37) 02/15/17 07:30 ALT 35 U/L (12-78) D 02/15/17 07:30 Alkaline Phosphatase 95 U/L (45-117) 02/15/17 07:30 Total Protein 7.0 g/dl (6.4-8.2) 02/15/17 07:30 Albumin 3.3 g/dl (3.4-5.0) L 02/15/17 07:30 Urine Color Yellow 02/16/17 14:00 Urine Appearance Slcloudy 02/16/17 14:00 Urine pH 5.0 (5.0-8.0) 02/16/17 14:00 Ur Specific [place] 1.020 (1.005-1.025) 02/16/17 14:00 Urine Protein Negative (NEGATIVE) 02/16/17 14:00 Urine Glucose (UA) 1+ (NEGATIVE) H 02/16/17 14:00 Urine Ketones Negative (NEGATIVE) 02/16/17 14:00 Urine Blood Negative (NEGATIVE) 02/16/17 14:00 Urine Nitrite Negative (NEGATIVE) 02/16/17 14:00 Urine Bilirubin Negative (NEGATIVE) 02/16/17 14:00 Urine Urobilinogen Negative mg/dL (0.2-1.0) 02/16/17 14:00 Urine RBC 3 /hpf (0-3) 02/14/17 17:20 Urine WBC 2 /hpf (3-5) 02/14/17 17:20 Ur Epithelial Cells Rare /hpf (FEW) 02/14/17 17:20 Hyaline Casts 1 /lpf 02/14/17 17:20 Urine Mucus Rare 02/14/17 17:20 RPR Titer Nonreactive (NONREACTIVE) 02/15/17 07:30 HIV 1&2 Antibody Screen Negative 02/15/17 07:30 HIV P24 Antigen Negative 02/15/17 07:30 Assessment: 02/17/17 10:56 WITHDRAWAL SX Plan: CONTINUE DETOX
[2017-02-17] MEDS ORDERED: chlordiazePOXIDE HCL 10 MG CAPSULE PO SCH (17:00)
[2017-02-18] MEDS ORDERED: METHADONE HCL 5 MG TABLET (FOR DETOX USE ONLY) PO SCH (06:00)
[2017-02-18] MEDS ORDERED: METHADONE HCL 10 MG TABLET (FOR DETOX USE ONLY) PO SCH (10:00)
[2017-02-19] MEDS ORDERED: METHADONE HCL 5 MG TABLET (FOR DETOX USE ONLY) PO SCH (06:00)
== END 2017-02-17 13:56 | disposition left against medical advice (07) | DRG 770 ==
LOC: YASAS 10:17 → Y3N 13:51
PROVIDERS: ADMIT Internal Medicine; ATTEND Internal Medicine
PROC: HZ2ZZZZ Detoxification Services for Substance Abuse Treatment (ICD-10-PCS; principal; 2017-02-14)
DX: F11.23 Opioid dependence with withdrawal (principal); F10.230 Alcohol dependence with withdrawal, uncomplicated; F17.213 Nicotine dependence, cigarettes, with withdrawal; F19.24 Other psychoactive substance dependence with psychoactive substance-induced mood disorder; F19.282 Other psychoactive substance dependence with psychoactive substance-induced sleep disorder; I10 Essential (primary) hypertension; J45.32 Mild persistent asthma with status asthmaticus; J43.1 Panlobular emphysema; Z59.0 Homelessness
CPT/HCPCS: 36415; 80053; 81003; 81015; 85027; 86593; 87389; 93005; 93010

== ENCOUNTER 2017-09-10 09:29 | Inpatient (IN) | payer OTHER ==
[2017-09-10 10:16] VITALS: BMI 25.9
--- NOTE | 2017-09-10 17:41 | HP ---
CIWA Score - CIWA Score Nausea/Vomitin-No Nausea/No Vomiting Muscle Tremors: 4-Moderate,w/Arms Extend Anxiety: 4-Mod. Anxious/Guarded Agitation: 4-Moderately Restless Paroxysmal Sweats: 3 Orientation: 0-Oriented Tacttile Disturbances: 0-None Auditory Disturbances: 0-None Visual Disturbances: 0-None Headache: 0-None Present CIWA-Ar Total Score: 15 Admission ROS S - HPI Chief Complaint: I am here for detox Allergies/Adverse Reactions: Allergies Allergy/AdvReac Type Severity Reaction Status Date / Time shellfish derived Allergy Severe Rash Verified 09/10/17 12:25 turkey Allergy Severe Rash Verified 09/10/17 12:25 Penicillins Allergy Difficulty Verified 09/10/17 12:25 Breathing turkey Allergy Severe Rash Uncoded 09/10/17 12:25 History of Present Illness: pt is a 52yr old male with a history of alcohol dependence seeking detox for treatment. Pt is on a mMTP program last dose received today of 50mg; dose verified. Exam Limitations: No Limitations - Ebola screening Have you traveled outside of the country in the last 21 days: No ([place]) Have you had contact with anyone from an Ebola affected area: No Have you been sick,other than usual withdrawal symptoms: No Do you have a fever: No - Review of Systems Constitutional: Chills, Loss of Appetite, Changes in sleep EENT: reports: Tearing, Nose Congestion Respiratory: reports: No Symptoms reported Cardiac: reports: Syncope GI: reports: Poor Appetite, Poor Fluid Intake : reports: No Symptoms Reported Musculoskeletal: reports: No Symptoms Reported Integumentary: reports: Flushing, Sweating Neuro: reports: Headache, Tingling, Tremors Endocrine: reports: Excessive Sweating, Flushing, Intolerance to Cold, Intolerance to Heat Hematology: reports: No Symptoms Reported Psychiatric: reports: Judgement Intact, Mood/Affect Appropiate, Orientated x3, Agitated, Anxious Other Systems: Reviewed and Negative Patient History - Patient Medical History Hx Anemia: No Hx Asthma: No Hx Chronic Obstructive Pulmonary Disease (COPD): No Hx Cancer: No Hx Cardiac Disorders: No Hx Congestive Heart Failure: No Hx Hypertension: Yes (on meds.) Hx Hypercholesterolemia: No Hx Pacemaker: No HX Cerebrovascular Accident: No Hx Seizures: No Hx Dementia: No Hx Diabetes: No Hx Gastrointestinal Disorders: No Hx Liver Disease: No Hx Genitourinary Disorders: No Hx Sexually Transmitted Disorders: No Hx Renal Disease (ESRD): No Hx Thyroid Disease: No Hx Human Immunodeficiency Virus (HIV): No Hx Hepatitis C: No Hx Depression: Yes Hx Suicide Attempt: No (denies) Hx Bipolar Disorder: No Hx Schizophrenia: No - Patient Surgical History Past Surgical History: No Hx Neurologic Surgery: No Hx Cataract Extraction: No Hx Cardiac Surgery: No Hx Lung Surgery: No Hx Breast Surgery: No Hx Breast Biopsy: No Hx Abdominal Surgery: No Hx Appendectomy: No Hx Cholecystectomy: No Hx Genitourinary Surgery: No Hx Section: No Hx Orthopedic Surgery: No Anesthesia Reaction: No - PPD History Previous Implant?: Yes Documented Results: Negative w/proof Implanted On Prior [facility] Admission?: Yes Date: 01/13/17 Results: 0 mm PPD to be Administered?: No - Reproductive History Patient is a Female of Child Bearing Age (11 -55 yrs old): No - Smoking Cessation Smoking history: Current every day smoker Have you smoked in the past 12 months: Yes Aproximately how many cigarettes per day: 10 Hx Chewing Tobacco Use: No Initiated information on smoking cessation: Yes 'Breaking Loose' booklet given: 09/10/17 - Substance & Tx. History Hx Alcohol Use: Yes Hx Substance Use: Yes Substance Use Type: Alcohol, Marijuana Hx Substance Use Treatment: Yes ([facility] 2016) - Substances Abused Alcohol Route: Oral Frequency: Daily Amount used: 1 and 1/2 pints vodka or gin Age of first use: 15 Date of Last Use: 09/10/17 Marijuana/Hashish Route: Smoking Frequency: 1-3 times last 30 days Amount used: 1 joint Age of first use: 33 Date of Last Use: 09/08/17 Family Disease History - Family Disease History Family Disease History: Heart Disease: Mother (), [place]: Father (, ALCOHOLIC), Other: Father, Mother Admission Physical Exam [facility] - Vital Signs Vital Signs: Vital Signs - 24 hr 09/10/17 10:14 Temperature 98.2 F Pulse Rate 80 Respiratory 18 Rate Blood Pressure 162/103 - Physical General Appearance: Yes: Within Normal Limits, Moderate Distress, Tremorous, Irritable, Sweating, Anxious HEENTM: Yes: Normal Voice, Nasal Congestion, Rhinorrhea Respiratory: Yes: Lungs Clear, Normal Breath Sounds, No Respiratory Distress Neck: Yes: Within Normal Limits, No masses,lesions,Nodules Breast: Yes: Within Normal Limits Cardiology: Yes: Regular Rhythm, Regular Rate, S1, S2 Abdominal: Yes: Normal Bowel Sounds, Non Tender, Soft Genitourinary: Yes: Within Normal Limits Back: Yes: Normal Inspection Musculoskeletal: Yes: full range of Motion Extremities: Yes: Normal Capillary Refill, Normal Inspection, Non-Tender, Tremors Neurological: Yes: Fully Oriented, Alert, Normal Response Integumentary: Yes: Normal Color, Diaphoresis Lymphatic: Yes: Within Normal Limits - Diagnostic (1) Methadone maintenance therapy patient Current Visit: Yes Status: Chronic (2) Alcohol dependence with uncomplicated withdrawal Current Visit: Yes Status: Chronic (3) Cannabis dependence Current Visit: Yes Status: Chronic (4) Nicotine dependence Current Visit: Yes Status: Acute Qualifiers: Nicotine product type: cigarettes Substance use status: uncomplicated Qualified Code(s): F17.210 - Nicotine dependence, cigarettes, uncomplicated (5) COPD (chronic obstructive pulmonary disease) Current Visit: Yes Status: Chronic Qualifiers: COPD type: chronic bronchitis (6) Hypertension Current Visit: Yes Status: Chronic Qualifiers: Hypertension type: essential hypertension Cleared for Admission S - Detox or Rehab [facility] Level of Care: Medically Managed Detox Regimen/Protocol: Librium [facility] Breath Alcohol Content Breath Alcohol Content: 0 Urine Drug Screen - Results Drug Screen Negative: No Urine Drug Screen Results: THC-Marijuana, MTD-Methadone
[2017-09-10] MEDS ORDERED: MAGNESIUM HYDROX 2400MG/30ML ORAL SUSPENSION 30 ML CUP PO PRN (17:43)
[2017-09-10] MEDS ORDERED: chlordiazePOXIDE HCL 25 MG CAPSULE PO PRN (17:43)
[2017-09-10] MEDS ORDERED: hydrOXYzine PAMOATE 50 MG CAPSULE (FP) PO PRN (17:43)
[2017-09-10] MEDS ORDERED: MAG HYDROX/AL HYDROX/SIMETH 30 ML UNIT-DOSE CUP PO PRN (17:43)
[2017-09-10] MEDS ORDERED: ACETAMINOPHEN 325 MG TABLET (FP) PO PRN (17:43)
[2017-09-10] MEDS ORDERED: NICOTINE POLACRILEX 4 MG GUM BC PRN (17:43)
[2017-09-10] MEDS ORDERED: MAGNESIUM CITRATE 300 ML BOTTLE PO PRN (17:43)
[2017-09-10] MEDS ORDERED: P-EPHED 60MG/TRIPROLIDI 2.5MG TABLET PO PRN (17:43)
[2017-09-10] MEDS ORDERED: LOPERAMIDE HCL 2 MG CAPSULE PO PRN (17:43)
[2017-09-10] MEDS ORDERED: guaiFENesin/D-METHORPHAN HB 10 ML UNIT-DOSE CUPS PO PRN (17:43)
[2017-09-10] MEDS ORDERED: IBUPROFEN 400 MG TABLET (FP) PO PRN (17:43)
[2017-09-10] MEDS ORDERED: MENTHOL/PHENOL 1 EACH UD MM PRN (17:43)
[2017-09-10] MEDS ORDERED: chlordiazePOXIDE HCL 25 MG CAPSULE PO ONE (18:15)
[2017-09-10] MEDS ORDERED: MELATONIN 5 MG TABLETS PO PRN (22:00)
[2017-09-10] MEDS ORDERED: diphenhydrAMINE HCL 25 MG CAPSULE (FP) PO PRN (22:00)
[2017-09-10] MEDS: chlordiazePOXIDE HCL 25 MG CAPSULE PO SCH (22:14)
[2017-09-10] MEDS: THIAMINE HCL 100 MG TABLET (FP) PO SCH (22:14)
[2017-09-11 02:11] LABS: URINE APPEARANCE CLEAR; URINE BILIRUBIN NEGATIVE (<2.0 mg/dL); URINE BLOOD 1+ (NEGATIVE); URINE COLOR DKYELLOW; URINE GLUCOSE (UA) 1+ (NEGATIVE); URINE KETONE TRACE (NEGATIVE); URINE LEUK ESTERASE NEGATIVE (NEGATIVE); URINE NITRITE NEGATIVE (NEGATIVE); URINE UROBILINOGEN NEGATIVE mg/dL (0.2-1.0)
[2017-09-11 02:22] LABS: URINE PROTEIN 1+ (NEGATIVE)
[2017-09-11 02:38] LABS: URINE MUCUS RARE
[2017-09-11] MEDS ORDERED: METHADONE HCL 10 MG TABLET ONE (04:54)
[2017-09-11] MEDS ORDERED: METHADONE HCL 40 MG DISPERSABLE TABLET ONE (04:54)
[2017-09-11] MEDS ORDERED: METHADONE HCL 10 MG TABLET PO SCH (06:00)
[2017-09-11] MEDS: METHADONE 40 MG, METHADONE 10 MG PO SCH (07:35)
[2017-09-11] MEDS: chlordiazePOXIDE HCL 25 MG CAPSULE PO SCH ×4 (07:35→22:10)
--- NOTE | 2017-09-11 09:36 | EKG ---
Test Reason : Blood Pressure : / mmHG Vent. Rate : 096 BPM Atrial Rate : 096 BPM P-R Int : 154 ms QRS Dur : 086 ms QT Int : 348 ms P-R-T Axes : 071 070 066 degrees QTc Int : 439 ms NORMAL SINUS RHYTHM NORMAL ECG WHEN COMPARED WITH ECG OF 14-FEB-2017 14:28, NO SIGNIFICANT CHANGE WAS FOUND Confirmed by FORD BACON MD ([id number]) on 09/11/2017 9:36:21 AM Referred By: Confirmed By:FORD BACON MD
[2017-09-11 09:55] LABS: HEMOGLOBIN 13.2 GM/dL (11.7-16.9); MCHC 33.8 g/dl (32.0-35.9); MEAN CELL VOLUME 85.7 fl (80-96); MEAN PLT VOLUME 8.4 fl (7.5-11.1); PLATELET COUNT 334 K/MM3 (134-434); RBC 4.55 M/mm3 (4.00-5.60); RDW 17.9 % (11.9-15.9)
[2017-09-11] MEDS ORDERED: cloNIDine HCL 0.1 MG TABLET PO SCH (10:00)
[2017-09-11 10:05] LABS: CHLORIDE 104 mmol/L (98-107); POTASSIUM 4.6 mmol/L (3.5-5.1); SODIUM 138 mmol/L (136-145)
--- NOTE | 2017-09-11 10:19 | CONSULT ---
[facility] Psychiatric Consult - Data Date of interview: 09/11/17 Admission source: [facility] Identifying data: This is one of multiple admissions to [facility] for this 52 y/ o AA male seeking detox treatment on for heroin,marihuana and alcohol dependence.Patient is single without children,homeless,unemployed and deprived of any source of income. Substance Abuse History: Confirmed by patient in this session.Details in current [facility] report as follows : Smoking history: Current every day smoker. Have you smoked in the past 12 months: Yes. Aproximately how many cigarettes per day: 10. Hx Chewing Tobacco Use: No. Initiated information on smoking cessation: Yes. 'Breaking Loose' booklet given: 09/10/17. - Substance & Tx. History. Hx Alcohol Use: Yes. Hx Substance Use: Yes. Substance Use Type: Alcohol, Marijuana. Hx Substance Use Treatment: Yes ([facility] 2016). - Substances Abused. Alcohol. Route: Oral. Frequency: Daily. Amount used: 1 and 1/2 pints vodka or gin. Age of first use: 15. Date of Last Use: . Marijuana/Hashish. Route: Smoking. Frequency: 1-3 times last 30 days. Amount used: 1 joint. Age of first use: 33. Date of Last Use: 09/08/17 Medical History: Hypertension and bronchial asthma. Psychiatric History: No reported history of psychiatric hospitalizations.Patient declares that he is followed at the [facility] program in the [place].Diagnosed with MDD and PTSD.Sees a psychiatrist for medication management (celexa 30 mg/day + buspar 10 mg po tid + ambien 10 mg/hs).Confirmed claims of by [facility] at [phone] (justowriter operator,with patient's verbal authorization, called for verification).Mr Stephenson is currently on methadone maintenance (50 mg/day) at [facility] program.Denies history of suicide attempts. Physical/Sexual Abuse/Trauma History: Patient declines to discuss this domain. Additional Comment: Urine Drug Screen Results: THC-Marijuana, MTD- Methadone.Noted. Mental Status Exam - Mental Status Exam Alert and Oriented to: Time, Place, Person Cognitive Function: Good Patient Appearance: Well Groomed Mood: Withdrawn, Hopeful Affect: Mood Congruent Patient Behavior: Fatigued, Appropriate, Cooperative Speech Pattern: Clear Voice Loudness: Normal Thought Process: Goal Oriented Thought Disorder: Not Present Hallucinations: Denies Suicidal Ideation: Denies Homicidal Ideation: Denies Insight/Judgement: Poor Sleep: Poorly, Difficulty falling asleep Appetite: Good Muscle strength/Tone: Normal Gait/Station: Normal Psychiatric Findings - Problem List ([place] 1, 2,3) (1) Opioid dependence on agonist therapy Current Visit: Yes Status: Acute (2) Alcohol dependence with uncomplicated withdrawal Current Visit: Yes Status: Acute (3) Cannabis dependence Current Visit: Yes Status: Acute (4) Nicotine dependence Current Visit: Yes Status: Acute Qualifiers: Nicotine product type: cigarettes Substance use status: uncomplicated Qualified Code(s): F17.210 - Nicotine dependence, cigarettes, uncomplicated (5) Drug-induced mood disorder Current Visit: Yes Status: Acute (6) MDD (major depressive disorder) Current Visit: Yes Status: Chronic Comment: As per self-report.On medications. (7) Insomnia Current Visit: Yes Status: Acute - Initial Treatment Plan Initial Treatment Plan: Psychoeducation.Records revisited.Sleep hygiene discussed.Detoxification in progress.Medications resumed as : celexa 30 mg po daily + buspar 10 mg po tid + ambien 5 mg po hs prn.VERIFIED.Side effects/ benefits of each drug are discussed with the patient.Mr Stephenson agrees with this careplan.Observation.
[2017-09-11 10:32] LABS: ALBUMIN 3.9 g/dl (3.4-5.0); ALK PHOS 117 U/L (45-117); ANION GAP 8 (8-16); BILIRUBIN,TOTAL 0.2 mg/dL (0.2-1.0); BLOOD UREA NITROGEN 19 mg/dL (7-18); CALCIUM 9.2 mg/dL (8.5-10.1); CO2 26 mmol/L (21-32); CREATININE 1.3 mg/dL (0.7-1.3); GLUCOSE,RANDOM 107 mg/dL (74-106); SGOT/AST 24 U/L (15-37); SGPT/ALT 24 U/L (12-78); TOT PROT 7.9 g/dl (6.4-8.2)
[2017-09-11] MEDS: amLODIPine BESYLATE 10 MG TABLET (FP) PO SCH (10:36)
[2017-09-11] MEDS: PRENATAL VITAMINS W/ FOLIC ACID TABLET (FP) PO SCH (10:36)
[2017-09-11] MEDS: NICOTINE 21 MG/24 HOURS TOPICAL PATCH TD SCH (10:38)
--- NOTE | 2017-09-11 15:05 | PN ---
[facility] CIWA - CIWA Score Nausea/Vomitin-No Nausea/No Vomiting Muscle Tremors: None Anxiety: 4-Mod. Anxious/Guarded Agitation: 3 Paroxysmal Sweats: 3 Orientation: 2-Disoriented Date<2 days Tacttile Disturbances: 1-Very Mild Itch/Numbness Auditory Disturbances: 2-Mild Harshness/Frighten Visual Disturbances: 2-Mild Sensitivity Headache: 0-None Present CIWA-Ar Total Score: 17 S Progress Note (SOAP) Subjective: Body Aches, Sweating, Anxious, Interrupted Sleep. Objective: PATIENT A & O X 2 (UNCERTAIN ABOUT CURRENT DAY / DATE). NO ACUTE DISTRESS. 09/11/17 15:02 Vital Signs Temperature 96.2 F L 09/11/17 14:13 Pulse Rate 71 09/11/17 14:13 Respiratory Rate 18 09/11/17 14:13 Blood Pressure 139/92 09/11/17 14:13 O2 Sat by Pulse Oximetry (%) Laboratory Tests 09/11/17 09/11/17 09/11/17 00:05 06:00 06:00 WBC 8.0 RBC 4.55 Hgb 13.2 Hct 39.0 MCV 85.7 MCH 29.0 MCHC 33.8 RDW 17.9 H D Plt Count 334 MPV 8.4 Sodium 138 Potassium 4.6 Chloride 104 Carbon Dioxide 26 Anion Gap 8 BUN 19 H Creatinine 1.3 D Creat Clearance w eGFR 57.53 Random Glucose 107 H D Calcium 9.2 Total Bilirubin 0.2 D AST 24 D ALT 24 D Alkaline Phosphatase 117 D Total Protein 7.9 Albumin 3.9 Urine Color Dkyellow Urine Appearance Clear Urine pH 5.0 Ur Specific [place] 1.024 Urine Protein 1+ H Urine Glucose (UA) 1+ H Urine Ketones Trace H Urine Blood 1+ H Urine Nitrite Negative Urine Bilirubin Negative Urine Urobilinogen Negative Ur Leukocyte Esterase Negative Urine WBC (Auto) <1 Urine RBC (Auto) 3 Urine Mucus Rare RPR Titer 09/11/17 06:00 WBC RBC Hgb Hct MCV MCH MCHC RDW Plt Count MPV Sodium Potassium Chloride Carbon Dioxide Anion Gap BUN Creatinine Creat Clearance w eGFR Random Glucose Calcium Total Bilirubin AST ALT Alkaline Phosphatase Total Protein Albumin Urine Color Urine Appearance Urine pH Ur Specific [place] Urine Protein Urine Glucose (UA) Urine Ketones Urine Blood Urine Nitrite Urine Bilirubin Urine Urobilinogen Ur Leukocyte Esterase Urine WBC (Auto) Urine RBC (Auto) Urine Mucus RPR Titer Nonreactive LABS NOTED. Assessment: 09/11/17 15:03 WITHDRAWAL SYMPTOMS. HYPERTENSION. 09/11/17 15:05 Plan: CONTINUE DETOX. INCREASE DAILY PO FLUID INTAKE. INCREASE CLONIDINE TO 0.1 MG PO BID FOR ELEVATED BP.
[2017-09-11] MEDS: busPIRone HCL 10 MG TABLET (FP) PO SCH ×2 (15:13→22:10)
[2017-09-11] MEDS: THIAMINE HCL 100 MG TABLET (FP) PO SCH (22:09)
[2017-09-11] MEDS: cloNIDine HCL 0.1 MG TABLET PO SCH (22:10)
[2017-09-11] MEDS: ZOLPIDEM TARTRATE 5 MG TABLET PO PRN (22:10)
[2017-09-12] MEDS ORDERED: METHADONE HCL 40 MG DISPERSABLE TABLET ONE (05:07)
[2017-09-12] MEDS ORDERED: METHADONE HCL 10 MG TABLET ONE (05:07)
[2017-09-12] MEDS: busPIRone HCL 10 MG TABLET (FP) PO SCH ×3 (05:48→22:29)
[2017-09-12] MEDS: chlordiazePOXIDE HCL 25 MG CAPSULE PO SCH ×3 (05:48→17:13)
[2017-09-12] MEDS: METHADONE 40 MG, METHADONE 10 MG PO SCH (05:48)
[2017-09-12] MEDS: NICOTINE 21 MG/24 HOURS TOPICAL PATCH TD SCH (10:14)
[2017-09-12] MEDS: CITALOPRAM HYDROBROMIDE 10 MG TABLET (FP) PO SCH (10:14)
[2017-09-12] MEDS: amLODIPine BESYLATE 10 MG TABLET (FP) PO SCH (10:14)
[2017-09-12] MEDS: PRENATAL VITAMINS W/ FOLIC ACID TABLET (FP) PO SCH (10:14)
[2017-09-12] MEDS: cloNIDine HCL 0.1 MG TABLET PO SCH ×2 (10:14→22:29)
--- NOTE | 2017-09-12 16:17 | PN ---
[facility] CIWA - CIWA Score Nausea/Vomitin-No Nausea/No Vomiting Muscle Tremors: None Anxiety: 4-Mod. Anxious/Guarded Agitation: 2 Paroxysmal Sweats: 4-Forehead w/Sweat Beads Orientation: 2-Disoriented Date<2 days Tacttile Disturbances: 3-Moderate Itch/Numb/Burn Auditory Disturbances: 0-None Visual Disturbances: 2-Mild Sensitivity Headache: 0-None Present CIWA-Ar Total Score: 17 S Progress Note (SOAP) Subjective: Diarrhea, Sweating, Chills, Fatigue. Objective: PATIENT A & O X 2 (UNCERTAIN ABOUT CURRENT DAY/ DATE). PATIENT OBSERVED AMBULATING ON UNIT. NO ACUTE DISTRESS. 09/12/17 16:15 Vital Signs Temperature 96.4 F L 09/12/17 11:28 Pulse Rate 78 09/12/17 11:28 Respiratory Rate 18 09/12/17 11:28 Blood Pressure 127/91 09/12/17 11:28 O2 Sat by Pulse Oximetry (%) Laboratory Tests 09/11/17 09/11/17 09/11/17 00:05 06:00 06:00 WBC 8.0 RBC 4.55 Hgb 13.2 Hct 39.0 MCV 85.7 MCH 29.0 MCHC 33.8 RDW 17.9 H D Plt Count 334 MPV 8.4 Sodium 138 Potassium 4.6 Chloride 104 Carbon Dioxide 26 Anion Gap 8 BUN 19 H Creatinine 1.3 D Creat Clearance w eGFR 57.53 Random Glucose 107 H D Calcium 9.2 Total Bilirubin 0.2 D AST 24 D ALT 24 D Alkaline Phosphatase 117 D Total Protein 7.9 Albumin 3.9 Urine Color Dkyellow Urine Appearance Clear Urine pH 5.0 Ur Specific [place] 1.024 Urine Protein 1+ H Urine Glucose (UA) 1+ H Urine Ketones Trace H Urine Blood 1+ H Urine Nitrite Negative Urine Bilirubin Negative Urine Urobilinogen Negative Ur Leukocyte Esterase Negative Urine WBC (Auto) <1 Urine RBC (Auto) 3 Urine Mucus Rare RPR Titer 09/11/17 06:00 WBC RBC Hgb Hct MCV MCH MCHC RDW Plt Count MPV Sodium Potassium Chloride Carbon Dioxide Anion Gap BUN Creatinine Creat Clearance w eGFR Random Glucose Calcium Total Bilirubin AST ALT Alkaline Phosphatase Total Protein Albumin Urine Color Urine Appearance Urine pH Ur Specific [place] Urine Protein Urine Glucose (UA) Urine Ketones Urine Blood Urine Nitrite Urine Bilirubin Urine Urobilinogen Ur Leukocyte Esterase Urine WBC (Auto) Urine RBC (Auto) Urine Mucus RPR Titer Nonreactive LABS NOTED. Assessment: 09/12/17 16:16 WITHDRAWAL SYMPTOMS. Plan: CONTINUE DETOX.
[2017-09-12] MEDS: THIAMINE HCL 100 MG TABLET (FP) PO SCH (22:29)
[2017-09-12] MEDS: chlordiazePOXIDE 5 MG CAPSULE PO SCH (22:29)
[2017-09-12] MEDS: ZOLPIDEM TARTRATE 5 MG TABLET PO PRN (22:29)
[2017-09-13] MEDS ORDERED: METHADONE HCL 10 MG TABLET ONE (04:55)
[2017-09-13] MEDS ORDERED: METHADONE HCL 40 MG DISPERSABLE TABLET ONE (04:55)
[2017-09-13] MEDS: METHADONE 40 MG, METHADONE 10 MG PO SCH (05:31)
[2017-09-13] MEDS: chlordiazePOXIDE 5 MG CAPSULE PO SCH ×3 (05:32→17:49)
[2017-09-13] MEDS: busPIRone HCL 10 MG TABLET (FP) PO SCH ×3 (05:32→22:33)
[2017-09-13] MEDS: CITALOPRAM HYDROBROMIDE 10 MG TABLET (FP) PO SCH (10:12)
[2017-09-13] MEDS: PRENATAL VITAMINS W/ FOLIC ACID TABLET (FP) PO SCH (10:12)
[2017-09-13] MEDS: NICOTINE 21 MG/24 HOURS TOPICAL PATCH TD SCH (10:13)
[2017-09-13] MEDS: cloNIDine HCL 0.1 MG TABLET PO SCH ×2 (10:13→22:33)
[2017-09-13] MEDS: amLODIPine BESYLATE 10 MG TABLET (FP) PO SCH (10:13)
--- NOTE | 2017-09-13 11:55 | PN ---
[facility] Progress Note (SOAP) Subjective: irritable agitation interrupted sleep Objective: 09/13/17 11:54 Vital Signs Temperature 96.0 F L 09/13/17 11:22 Pulse Rate 87 09/13/17 11:22 Respiratory Rate 18 09/13/17 11:22 Blood Pressure 130/85 09/13/17 11:22 O2 Sat by Pulse Oximetry (%) [id number] ambulating no acute distress Assessment: 09/13/17 11:54 withdrawal sx Plan: continue detox increase fluids d/c in am
[2017-09-13] MEDS: THIAMINE HCL 100 MG TABLET (FP) PO SCH (22:32)
[2017-09-13] MEDS: ZOLPIDEM TARTRATE 5 MG TABLET PO PRN (22:32)
[2017-09-13] MEDS: chlordiazePOXIDE HCL 10 MG CAPSULE PO SCH (22:35)
[2017-09-14] MEDS ORDERED: METHADONE HCL 40 MG DISPERSABLE TABLET ONE (04:44)
[2017-09-14] MEDS ORDERED: METHADONE HCL 10 MG TABLET ONE (04:44)
[2017-09-14] MEDS: chlordiazePOXIDE HCL 10 MG CAPSULE PO SCH ×2 (05:44→11:12)
[2017-09-14] MEDS: METHADONE 40 MG, METHADONE 10 MG PO SCH (05:44)
[2017-09-14] MEDS: busPIRone HCL 10 MG TABLET (FP) PO SCH (05:45)
[2017-09-14 09:33] VITALS: BP 135/95; PULSE 80; TEMP 96.1
[2017-09-14] MEDS: NICOTINE 21 MG/24 HOURS TOPICAL PATCH TD SCH (10:37)
[2017-09-14] MEDS: cloNIDine HCL 0.1 MG TABLET PO SCH (10:37)
[2017-09-14] MEDS: CITALOPRAM HYDROBROMIDE 10 MG TABLET (FP) PO SCH (10:37)
[2017-09-14] MEDS: PRENATAL VITAMINS W/ FOLIC ACID TABLET (FP) PO SCH (10:37)
[2017-09-14] MEDS: amLODIPine BESYLATE 10 MG TABLET (FP) PO SCH (10:39)
--- NOTE | 2017-09-14 16:37 | PN ---
[facility] Progress Note (SOAP) Subjective: Patient denies current Detox symptoms and reports that he feels well overall. Objective: PATIENT A & O X 3, OBSERVED AMBULATING ON UNIT. NO ACUTE DISTRESS. 09/14/17 16:35 Vital Signs Temperature 96.1 F L 09/14/17 09:32 Pulse Rate 80 09/14/17 09:32 Respiratory Rate 18 09/14/17 09:32 Blood Pressure 135/95 09/14/17 09:32 O2 Sat by Pulse Oximetry (%) Laboratory Tests 09/11/17 09/11/17 09/11/17 00:05 06:00 06:00 WBC 8.0 RBC 4.55 Hgb 13.2 Hct 39.0 MCV 85.7 MCH 29.0 MCHC 33.8 RDW 17.9 H D Plt Count 334 MPV 8.4 Sodium 138 Potassium 4.6 Chloride 104 Carbon Dioxide 26 Anion Gap 8 BUN 19 H Creatinine 1.3 D Creat Clearance w eGFR 57.53 Random Glucose 107 H D Calcium 9.2 Total Bilirubin 0.2 D AST 24 D ALT 24 D Alkaline Phosphatase 117 D Total Protein 7.9 Albumin 3.9 Urine Color Dkyellow Urine Appearance Clear Urine pH 5.0 Ur Specific [place] 1.024 Urine Protein 1+ H Urine Glucose (UA) 1+ H Urine Ketones Trace H Urine Blood 1+ H Urine Nitrite Negative Urine Bilirubin Negative Urine Urobilinogen Negative Ur Leukocyte Esterase Negative Urine WBC (Auto) <1 Urine RBC (Auto) 3 Urine Mucus Rare RPR Titer 09/11/17 06:00 WBC RBC Hgb Hct MCV MCH MCHC RDW Plt Count MPV Sodium Potassium Chloride Carbon Dioxide Anion Gap BUN Creatinine Creat Clearance w eGFR Random Glucose Calcium Total Bilirubin AST ALT Alkaline Phosphatase Total Protein Albumin Urine Color Urine Appearance Urine pH Ur Specific [place] Urine Protein Urine Glucose (UA) Urine Ketones Urine Blood Urine Nitrite Urine Bilirubin Urine Urobilinogen Ur Leukocyte Esterase Urine WBC (Auto) Urine RBC (Auto) Urine Mucus RPR Titer Nonreactive LABS NOTED. Assessment: 09/14/17 16:36 COMPLETION OF DETOX REGIMEN. Plan: PATIENT SCHEDULED FOR DISCHARGE FROM DETOX UNIT TODAY.
--- NOTE | 2017-09-14 16:38 | DS ---
[facility] Detox Discharge Summary Admission Date: 09/10/17 Discharge Date: 09/14/17 - History Present History: Alcohol Dependence, Cannabis Dependence, MMTP Additional Comments: PATIENT GOING TO [facility] ([place] FOR AFTERCARE. PATIENT ADVISED TO CONSIDER LOCAL 12-STEP / NA OUTPATIENT SUPPORT GROUP PROGRAMS FOR AFTERCARE. PATIENT DISCHARGED FROM DETOX UNIT IN STABLE MEDICAL CONDITION. Pertinent Past History: COPD, HTN, Depression, Nicotine Dependence, Insomnia. - Physical Exam Results Vital Signs: Vital Signs Temperature 96.1 F L 09/14/17 09:32 Pulse Rate 80 09/14/17 09:32 Respiratory Rate 18 09/14/17 09:32 Blood Pressure 135/95 09/14/17 09:32 O2 Sat by Pulse Oximetry (%) Pertinent Admission Physical Exam Findings: WITHDRAWAL SYMPTOMS. Laboratory Tests 09/11/17 09/11/17 09/11/17 00:05 06:00 06:00 WBC 8.0 RBC 4.55 Hgb 13.2 Hct 39.0 MCV 85.7 MCH 29.0 MCHC 33.8 RDW 17.9 H D Plt Count 334 MPV 8.4 Sodium 138 Potassium 4.6 Chloride 104 Carbon Dioxide 26 Anion Gap 8 BUN 19 H Creatinine 1.3 D Creat Clearance w eGFR 57.53 Random Glucose 107 H D Calcium 9.2 Total Bilirubin 0.2 D AST 24 D ALT 24 D Alkaline Phosphatase 117 D Total Protein 7.9 Albumin 3.9 Urine Color Dkyellow Urine Appearance Clear Urine pH 5.0 Ur Specific [place] 1.024 Urine Protein 1+ H Urine Glucose (UA) 1+ H Urine Ketones Trace H Urine Blood 1+ H Urine Nitrite Negative Urine Bilirubin Negative Urine Urobilinogen Negative Ur Leukocyte Esterase Negative Urine WBC (Auto) <1 Urine RBC (Auto) 3 Urine Mucus Rare RPR Titer 09/11/17 06:00 WBC RBC Hgb Hct MCV MCH MCHC RDW Plt Count MPV Sodium Potassium Chloride Carbon Dioxide Anion Gap BUN Creatinine Creat Clearance w eGFR Random Glucose Calcium Total Bilirubin AST ALT Alkaline Phosphatase Total Protein Albumin Urine Color Urine Appearance Urine pH Ur Specific [place] Urine Protein Urine Glucose (UA) Urine Ketones Urine Blood Urine Nitrite Urine Bilirubin Urine Urobilinogen Ur Leukocyte Esterase Urine WBC (Auto) Urine RBC (Auto) Urine Mucus RPR Titer Nonreactive LABS NOTED. - Treatment Hospital Course: Detox Protocol Followed, Detoxed Safely, Responded well, Discharged Condition Good Patient has Accepted a Rehab Referral to: PT ADVISED TO CONSIDER LOCAL 12-STEP/ NA/AA OUTPATIENT SUPPORT GROUPS. - Medication Discharge Medications: Ambulatory Orders Amlodipine Besylate [Norvasc -] 10 mg PO DAILY #0 tablet 11/23/14 Buspirone HCl [Buspar -] 10 mg PO TID 09/10/17 Citalopram Hydrobromide [Citalopram HBr] 30 mg PO DAILY 09/10/17 Clonidine HCl [Catapres] 0.1 mg PO DAILY 09/10/17 Vitamin B Complex 1 each PO DAILY 09/10/17 Buspirone HCl [Buspar -] 10 mg PO TID #60 tablet 09/11/17 Citalopram Hydrobromide [Celexa -] 30 mg PO DAILY #60 tablet 09/11/17 - Diagnosis (1) Cannabis dependence Status: Acute (2) COPD (chronic obstructive pulmonary disease) Status: Chronic Qualifiers: COPD type: chronic bronchitis Chronic bronchitis type: unspecified Qualified Code(s): J42 - Unspecified chronic bronchitis (3) Methadone maintenance therapy patient Status: Chronic (4) Alcohol dependence with uncomplicated withdrawal Status: Acute (5) Nicotine dependence Status: Acute Qualifiers: Nicotine product type: cigarettes Substance use status: uncomplicated Qualified Code(s): F17.210 - Nicotine dependence, cigarettes, uncomplicated (6) Hypertension Status: Chronic Qualifiers: Hypertension type: essential hypertension Qualified Code(s): I10 - Essential (primary) hypertension (7) Insomnia Status: Acute Qualifiers: Insomnia type: unspecified Qualified Code(s): G47.00 - Insomnia, unspecified (8) Opioid dependence on agonist therapy Status: Acute (9) MDD (major depressive disorder) Status: Chronic Qualifiers: Major depression recurrence: recurrent Active/Remission status: remission status unspecified Qualified Code(s): F33.9 - Major depressive disorder, recurrent, unspecified (10) Drug-induced mood disorder Status: Acute - AMA Did Patient Leave Against Medical Advice: No
== END 2017-09-14 11:10 | disposition home or self-care (01) | DRG 773 ==
LOC: YASAS 09:29 → Y3N 15:20
PROVIDERS: ADMIT Internal Medicine; ATTEND Internal Medicine
PROC: HZ2ZZZZ Detoxification Services for Substance Abuse Treatment (ICD-10-PCS; principal; 2017-09-10)
DX: F11.20 Opioid dependence, uncomplicated (principal); F10.230 Alcohol dependence with withdrawal, uncomplicated; F12.20 Cannabis dependence, uncomplicated; F17.210 Nicotine dependence, cigarettes, uncomplicated; F33.9 Major depressive disorder, recurrent, unspecified; F19.24 Other psychoactive substance dependence with psychoactive substance-induced mood disorder; G47.00 Insomnia, unspecified; I10 Essential (primary) hypertension; J42 Unspecified chronic bronchitis; Z59.0 Homelessness
CPT/HCPCS: 36415; 80053; 81003; 81015; 85027; 86593; 93005; 93010; J0735

== ENCOUNTER 2017-09-30 13:13 | Inpatient (IN) | payer OTHER ==
[2017-09-30 15:51] VITALS: BMI 26.9
--- NOTE | 2017-09-30 19:02 | HP ---
Admission [facility] Chief Complaint: I am here for rehab and heroin Allergies/Adverse Reactions: Allergies Allergy/AdvReac Type Severity Reaction Status Date / Time shellfish derived Allergy Severe Rash Verified 09/30/17 17:45 turkey Allergy Severe Rash Verified 09/30/17 17:45 Penicillins Allergy Difficulty Verified 09/30/17 17:45 Breathing turkey Allergy Severe Rash Uncoded 09/30/17 17:45 History of Present Illness: Patient is a 52 yo male with hx of nicotine, heroin, and alcohol dependence is here seeking rehab. PMHX: HTN, depression, PTSD. Denies suicidal/ homicidal ideation or suicide attempts. Last detox at [facility] 09/10/17 -09/14/17. Reports no significant period of sobriety. Exam Limitations: No Limitations - Ebola screening Have you traveled outside of the country in the last 21 days: No Have you had contact with anyone from an Ebola affected area: No Have you been sick,other than usual withdrawal symptoms: No - Review of Systems Constitutional: Chills, Changes in sleep EENT: reports: Blurred Vision (uses glasses) Respiratory: reports: No Symptoms reported Cardiac: reports: No Symptoms Reported GI: reports: No Symptoms Reported : reports: No Symptoms Reported Musculoskeletal: reports: No Symptoms Reported Integumentary: reports: No Symptoms Reported Neuro: reports: No Symptoms reported Endocrine: reports: Increased Thirst Hematology: reports: No Symptoms Reported Psychiatric: reports: Orientated x3, Anxious Other Systems: Reviewed and Negative Patient History - Patient Medical History Hx Anemia: No Hx Asthma: No Hx Chronic Obstructive Pulmonary Disease (COPD): No Hx Cancer: No Hx Cardiac Disorders: No Hx Congestive Heart Failure: No Hx Hypertension: Yes (on meds.) Hx Hypercholesterolemia: No Hx Pacemaker: No HX Cerebrovascular Accident: No Hx Seizures: No Hx Dementia: No Hx Diabetes: No Hx Gastrointestinal Disorders: No Hx Liver Disease: No Hx Genitourinary Disorders: No Hx Sexually Transmitted Disorders: No Hx Renal Disease (ESRD): No Hx Thyroid Disease: No Hx Human Immunodeficiency Virus (HIV): No Hx Hepatitis C: No Hx Depression: Yes Hx Suicide Attempt: No (denies) Hx Bipolar Disorder: No Hx Schizophrenia: No - Patient Surgical History Past Surgical History: No Hx Neurologic Surgery: No Hx Cataract Extraction: No Hx Cardiac Surgery: No Hx Lung Surgery: No Hx Breast Surgery: No Hx Breast Biopsy: No Hx Abdominal Surgery: No Hx Appendectomy: No Hx Cholecystectomy: No Hx Genitourinary Surgery: No Hx Section: No Hx Orthopedic Surgery: No Anesthesia Reaction: No - PPD History Previous Implant?: Yes Documented Results: Negative w/proof Date: 01/13/17 Results: 0 mm PPD to be Administered?: No - Reproductive History Patient is a Female of Child Bearing Age (11 -55 yrs old): No - Smoking Cessation Smoking history: Current every day smoker Have you smoked in the past 12 months: Yes Aproximately how many cigarettes per day: 10 Hx Chewing Tobacco Use: No Initiated information on smoking cessation: Yes 'Breaking Loose' booklet given: 09/30/17 - Substance & Tx. History Hx Alcohol Use: Yes Hx Substance Use: Yes Substance Use Type: Alcohol, Heroin Hx Substance Use Treatment: Yes ([facility] 09/10/17 -09/14/17) - Substances Abused Alcohol Route: Oral Frequency: Daily Amount used: 1 pint Vodka Age of first use: 33 Date of Last Use: 09/30/17 Heroin Route: Inhalation Frequency: Daily Amount used: 4 -6 bags Age of first use: 33 Date of Last Use: 09/25/17 Family Disease History - Family Disease History Family Disease History: Heart Disease: Mother (), CA: Father (, ALCOHOLIC), Other: Father, Mother Admission Physical Exam [facility] - Vital Signs Vital Signs: Vital Signs - 24 hr 09/30/17 15:46 Temperature 98.8 F Pulse Rate 94 H Respiratory 20 Rate Blood Pressure 94/73 - Physical General Appearance: Yes: Appropriately Dressed, Anxious HEENTM: Yes: EOMI, Hearing grossly Normal, Normal ENT Inspection, Normocephalic , Normal Voice, BRIAN, Pharynx Normal, Tm's normal Respiratory: Yes: Chest Non-Tender, Lungs Clear, Normal Breath Sounds, No Respiratory Distress, No Accessory Muscle Use Neck: Yes: No masses,lesions,Nodules, Trachea in good position Breast: Yes: Breast Exam Deferred Cardiology: Yes: Regular Rhythm, Regular Rate Abdominal: Yes: Normal Bowel Sounds, Non Tender, Flat, Soft Genitourinary: Yes: Within Normal Limits Back: Yes: Normal Inspection Musculoskeletal: Yes: full range of Motion, Gait Steady, Pelvis Stable Extremities: Yes: Normal Capillary Refill, Normal Inspection, Normal Range of Motion, Non-Tender Neurological: Yes: reheater helper II-XII NML intact, Fully Oriented, Alert, Motor Strength 5/5, Depressed Affect Integumentary: Yes: Normal Color, Dry, Warm Lymphatic: Yes: Within Normal Limits - Diagnostic (1) PTSD (post-traumatic stress disorder) Current Visit: Yes Status: Acute (2) Insomnia Current Visit: Yes Status: Acute Qualifiers: Insomnia type: unspecified Qualified Code(s): G47.00 - Insomnia, unspecified (3) Nicotine dependence Current Visit: Yes Status: Acute Qualifiers: Nicotine product type: cigarettes Substance use status: uncomplicated Qualified Code(s): F17.210 - Nicotine dependence, cigarettes, uncomplicated (4) Asthma Current Visit: Yes Status: Chronic Qualifiers: Asthma severity: mild persistent Asthma complication type: with status asthmaticus (5) Hypertension Current Visit: Yes Status: Chronic Qualifiers: Hypertension type: essential hypertension Qualified Code(s): I10 - Essential (primary) hypertension [facility] Breath Alcohol Content Breath Alcohol Content: 0.069 Urine Drug Screen - Results Drug Screen Negative: No Urine Drug Screen Results: BZO-Benzodiazepines, MTD-Methadone Inpatient Rehab Admission - Initial Determination Are CD services needed?: Yes Free of communicable disease: Yes Not in need of hospitalization: Yes - Rehab Admission Criteria Previous failed treatment: Yes Poor recovery environment: Yes Comorbidities: Yes Lacks judgement: Yes Patient is meeting Inpatient Rehab admission criteria:: Yes
[2017-09-30] MEDS ORDERED: MAGNESIUM CITRATE 300 ML BOTTLE PO PRN (19:18)
[2017-09-30] MEDS ORDERED: P-EPHED 60MG/TRIPROLIDI 2.5MG TABLET PO PRN (19:18)
[2017-09-30] MEDS ORDERED: ACETAMINOPHEN 325 MG TABLET (FP) PO PRN (19:18)
[2017-09-30] MEDS ORDERED: hydrOXYzine PAMOATE 50 MG CAPSULE (FP) PO PRN (19:18)
[2017-09-30] MEDS ORDERED: MENTHOL/PHENOL 1 EACH UD MM PRN (19:18)
[2017-09-30] MEDS ORDERED: IBUPROFEN 400 MG TABLET (FP) PO PRN (19:18)
[2017-09-30] MEDS ORDERED: LOPERAMIDE HCL 2 MG CAPSULE PO PRN (19:18)
[2017-09-30] MEDS ORDERED: guaiFENesin/D-METHORPHAN HB 10 ML UNIT-DOSE CUPS PO PRN (19:18)
[2017-09-30] MEDS ORDERED: MAGNESIUM HYDROX 2400MG/30ML ORAL SUSPENSION 30 ML CUP PO PRN (19:18)
[2017-09-30] MEDS ORDERED: NICOTINE POLACRILEX 2 MG GUM BC PRN (19:18)
[2017-09-30] MEDS ORDERED: MAG HYDROX/AL HYDROX/SIMETH 30 ML UNIT-DOSE CUP PO PRN (19:18)
[2017-09-30] MEDS ORDERED: THIAMINE HCL 100 MG TABLET (FP) PO SCH (22:00)
[2017-09-30] MEDS ORDERED: MELATONIN 5 MG TABLETS PO PRN (22:00)
[2017-09-30 23:42] LABS: URINE APPEARANCE CLOUDY; URINE BILIRUBIN NEGATIVE (<2.0 mg/dL); URINE BLOOD NEGATIVE (NEGATIVE); URINE COLOR DKYELLOW; URINE GLUCOSE (UA) NEGATIVE (NEGATIVE); URINE KETONE NEGATIVE (NEGATIVE); URINE LEUK ESTERASE NEGATIVE (NEGATIVE); URINE NITRITE NEGATIVE (NEGATIVE); URINE PROTEIN NEGATIVE (NEGATIVE)
[2017-10-01 06:47] VITALS: TEMP 97.3
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
[2017-10-01] MEDS ORDERED: cloNIDine HCL 0.1 MG TABLET PO SCH (10:00)
[2017-10-01] MEDS ORDERED: NICOTINE 14 MG/24 HOURS TOPICAL PATCH TD SCH (10:00)
[2017-10-01] MEDS ORDERED: amLODIPine BESYLATE 10 MG TABLET (FP) PO SCH (10:00)
[2017-10-01] MEDS ORDERED: PRENATAL VITAMINS W/ FOLIC ACID TABLET (FP) PO SCH (10:00)
[2017-10-01] MEDS ORDERED: CITALOPRAM HYDROBROMIDE 10 MG TABLET (FP) PO SCH (11:15)
--- NOTE | 2017-10-01 11:26 | PN ---
[facility] Progress Note Note: Vital Signs Temperature 97.3 F L 10/01/17 06:47 Pulse Rate 84 10/01/17 06:47 Respiratory Rate 18 10/01/17 06:47 Blood Pressure 151/82 10/01/17 06:47 O2 Sat by Pulse Oximetry (%) WITHDRAWAL SYMPTOM CLONIDINE 0.1 MG PO NOW AND DAILY FLEXERIL 10 MGS PO NOW THEN TID PRN FOR 72 HRS CLOSE MONITORING
--- NOTE | 2017-10-01 11:30 | EKG ---
Test Reason : Blood Pressure : / mmHG Vent. Rate : 088 BPM Atrial Rate : 088 BPM P-R Int : 174 ms QRS Dur : 100 ms QT Int : 362 ms P-R-T Axes : 069 058 066 degrees QTc Int : 438 ms NORMAL SINUS RHYTHM NORMAL ECG WHEN COMPARED WITH ECG OF 10-SEP-2017 18:44, NO SIGNIFICANT CHANGE WAS FOUND Confirmed by DIANA ELENA MD ([id number]) on 10/01/2017 11:30:02 AM Referred By: Confirmed By:DIANA ELENA MD
[2017-10-01] MEDS ORDERED: cloNIDine HCL 0.1 MG TABLET PO ONE (11:45)
[2017-10-01] MEDS ORDERED: CYCLOBENZAPRINE HCL 10 MG TABLET (FP) PO ONE (11:45)
[2017-10-01 12:22] VITALS: BP 146/112; PULSE 79
[2017-10-01] MEDS ORDERED: busPIRone HCL 10 MG TABLET (FP) PO SCH (14:00)
[2017-10-01] MEDS ORDERED: CYCLOBENZAPRINE HCL 10 MG TABLET (FP) PO SCH (14:00)
[2017-10-01 14:42] LABS: HEMOGLOBIN 12.4 GM/dL (11.7-16.9); MCH 28.6 pg (25.7-33.7); MCHC 33.4 g/dl (32.0-35.9); MEAN CELL VOLUME 85.5 fl (80-96); MEAN PLT VOLUME 7.7 fl (7.5-11.1); PLATELET COUNT 353 K/MM3 (134-434); RBC 4.33 M/mm3 (4.00-5.60); RDW 18.6 % (11.9-15.9); WHITE BLOOD COUNT 9.5 K/mm3 (4.0-10.0)
[2017-10-01 15:13] LABS: CHLORIDE 107 mmol/L (98-107); POTASSIUM 4.6 mmol/L (3.5-5.1); SODIUM 142 mmol/L (136-145)
[2017-10-01 15:22] LABS: ALBUMIN 3.3 g/dl (3.4-5.0); ALK PHOS 83 U/L (45-117); ANION GAP 10 (8-16); BILIRUBIN,TOTAL 0.2 mg/dL (0.2-1.0); BLOOD UREA NITROGEN 25 mg/dL (7-18); CALCIUM 8.5 mg/dL (8.5-10.1); CO2 25 mmol/L (21-32); CREATININE 1.2 mg/dL (0.7-1.3); GLUCOSE,RANDOM 112 mg/dL (74-106); SGOT/AST 22 U/L (15-37); SGPT/ALT 23 U/L (12-78); TOT PROT 6.6 g/dl (6.4-8.2)
--- NOTE | 2017-10-01 15:46 | PN ---
[facility] Progress Note Note: Patient c/o of withdrawal symptoms. Reports he was linked to [facility] and was on methadone 50mg QD. Patient reports he went to [facility] to detox from Heroin and was given Methadone taper, with last dose 5mg two days ago. Patient reports he that he did not inform I he was in a methadone program because "its none of their business." Clonidine 0.1 mg and flexeril were order for patient earlier today. Vital Signs Temperature 97.3 F L 10/01/17 06:47 Pulse Rate 79 10/01/17 10:10 Respiratory Rate 18 10/01/17 06:47 Blood Pressure 146/112 10/01/17 10:10 O2 Sat by Pulse Oximetry (%) A/P AOx3, no apparent distress No adventitious breath sounds Ambulating in the unit Increase fluids Continue to monitor
--- NOTE | 2017-10-01 16:21 | PN ---
S Progress Note Note: called by nurse ,patient did not want to complete the treatment,psychiatric banquet set up person notified by nurse,did not want to wait,signed release ama
== END 2017-10-01 16:10 | disposition left against medical advice (07) | DRG 770 ==
LOC: YASAS 13:13 → Y3W 19:52
PROVIDERS: ADMIT Psychiatry & Neurology Psychiatry; ATTEND Psychiatry & Neurology Psychiatry
PROC: HZ42ZZZ Group Counseling for Substance Abuse Treatment, Cognitive-Behavioral (ICD-10-PCS; principal; 2017-09-30)
DX: F11.20 Opioid dependence, uncomplicated (principal); F10.230 Alcohol dependence with withdrawal, uncomplicated; F17.210 Nicotine dependence, cigarettes, uncomplicated; F19.282 Other psychoactive substance dependence with psychoactive substance-induced sleep disorder; F19.24 Other psychoactive substance dependence with psychoactive substance-induced mood disorder; F33.9 Major depressive disorder, recurrent, unspecified; F43.10 Post-traumatic stress disorder, unspecified; J42 Unspecified chronic bronchitis; J45.32 Mild persistent asthma with status asthmaticus; I10 Essential (primary) hypertension
CPT/HCPCS: 36415; 80053; 81003; 85027; 86593; 93005; 93010; J0735

== ENCOUNTER 2018-02-26 11:02 | Inpatient (IN) | payer OTHER ==
[2018-02-26 13:22] VITALS: BMI 26.6
--- NOTE | 2018-02-26 14:14 | HP ---
COWS - Scale Resting Pulse: 0= [place] 80 or Below Sweatin=Flushed/Facial Moisture Restless Observation: 1= Difficult to Sit Still Pupil Size: 0= Normal to Room Light Bone or Joint Aches: 2= Severe Diffuse Aches Runny Nose/ Eye Tearin= Runny Nose/Eyes GI Upset > 30mins: 1= Stomach Cramp Tremor Observation: 2= Slight Tremor Visible Yawning Observation: 2= >3x During Session Anxiety or Irritability: 2=Irritable/Anxious Goose Flesh Skin: 3=Piloerection COWS Score: 17 CIWA Score - CIWA Score Nausea/Vomitin-Mild Nausea/No Vomiting Muscle Tremors: 4-Moderate,w/Arms Extend Anxiety: 4-Mod. Anxious/Guarded Agitation: 3 Paroxysmal Sweats: 3 Orientation: 0-Oriented Tacttile Disturbances: 0-None Auditory Disturbances: 0-None Visual Disturbances: 0-None Headache: 0-None Present CIWA-Ar Total Score: 15 Admission ROS S - HPI Chief Complaint: I am here for detox and work hard to stay clean. Allergies/Adverse Reactions: Allergies Allergy/AdvReac Type Severity Reaction Status Date / Time Penicillins Allergy Severe Difficulty Verified 02/26/18 13:33 Breathing shellfish derived Allergy Severe Rash Verified 02/26/18 13:33 turkey Allergy Severe Rash Verified 02/26/18 13:33 History of Present Illness: pt is a 53yr old male with a history of alcohol and heroin dependence seeking detox for treatment. Exam Limitations: No Limitations - Ebola screening Have you traveled outside of the country in the last 21 days: No (N) Have you had contact with anyone from an Ebola affected area: No Have you been sick,other than usual withdrawal symptoms: No Do you have a fever: No - Review of Systems Constitutional: Chills, Diaphoresis, Loss of Appetite, Night Sweats, Changes in sleep, Unintentional Wgt. Loss EENT: reports: Tearing, Nose Congestion Respiratory: reports: No Symptoms reported Cardiac: reports: No Symptoms Reported GI: reports: Nausea, Poor Appetite, Poor Fluid Intake : reports: No Symptoms Reported Musculoskeletal: reports: Back Pain, Joint Pain Integumentary: reports: Flushing, Sweating Neuro: reports: Tingling, Tremors Endocrine: reports: Excessive Sweating, Flushing, Intolerance to Cold, Intolerance to Heat Hematology: reports: No Symptoms Reported Psychiatric: reports: Judgement Intact, Mood/Affect Appropiate, Orientated x3, Agitated, Anxious Other Systems: Reviewed and Negative Patient History - Patient Medical History Hx Anemia: No Hx Asthma: No Hx Chronic Obstructive Pulmonary Disease (COPD): No Hx Cancer: No Hx Cardiac Disorders: No Hx Congestive Heart Failure: No Hx Hypertension: Yes Hx Hypercholesterolemia: No Hx Pacemaker: No HX Cerebrovascular Accident: No Hx Seizures: No Hx Dementia: No Hx Diabetes: No Hx Gastrointestinal Disorders: No Hx Liver Disease: No Hx Genitourinary Disorders: No Hx Sexually Transmitted Disorders: No Hx Renal Disease (ESRD): No Hx Thyroid Disease: No Hx Human Immunodeficiency Virus (HIV): No Hx Hepatitis C: No Hx Depression: Yes Hx Suicide Attempt: No Hx Bipolar Disorder: No Hx Schizophrenia: No - Patient Surgical History Past Surgical History: No Hx Neurologic Surgery: No Hx Cataract Extraction: No Hx Cardiac Surgery: No Hx Lung Surgery: No Hx Breast Surgery: No Hx Breast Biopsy: No Hx Abdominal Surgery: No Hx Appendectomy: No Hx Cholecystectomy: No Hx Genitourinary Surgery: No Hx Section: No Hx Orthopedic Surgery: No Anesthesia Reaction: No - PPD History Previous Implant?: Yes Documented Results: Negative w/proof Implanted On Prior R Admission?: Yes Date: 01/13/17 Results: 0 mm PPD to be Administered?: No - Reproductive History Patient is a Female of Child Bearing Age (11 -55 yrs old): No - Smoking Cessation Smoking history: Current every day smoker Have you smoked in the past 12 months: Yes Aproximately how many cigarettes per day: 20 Hx Chewing Tobacco Use: No Initiated information on smoking cessation: Yes 'Breaking Loose' booklet given: 02/26/18 - Substance & Tx. History Hx Alcohol Use: Yes Hx Substance Use: Yes Substance Use Type: Alcohol, Heroin Hx Substance Use Treatment: Yes (September 2017 [facility]) - Substances Abused Heroin Route: Inhalation Frequency: Daily Amount used: 6 bags Age of first use: 33 Date of Last Use: 02/25/18 Alcohol-vodka Route: Oral Frequency: Daily Amount used: 2 pts. Age of first use: 15 Date of Last Use: 02/26/18 Family Disease History - Family Disease History Family Disease History: Heart Disease: Mother (), CA: Father (, ALCOHOLIC), Other: Father, Mother Admission Physical Exam [facility] - Vital Signs Vital Signs: Vital Signs - 24 hr 02/26/18 13:20 Temperature 96.9 F L Pulse Rate 86 Respiratory 18 Rate Blood Pressure 158/106 H - Physical General Appearance: Yes: Appropriately Dressed, Irritable, Sweating, Anxious HEENTM: Yes: Hearing grossly Normal, Nasal Congestion, Rhinorrhea Respiratory: Yes: Lungs Clear, Normal Breath Sounds, No Respiratory Distress Neck: Yes: No masses,lesions,Nodules Breast: Yes: Within Normal Limits Cardiology: Yes: Regular Rhythm, Regular Rate, S1, S2 Abdominal: Yes: Normal Bowel Sounds, Non Tender, Soft Genitourinary: Yes: Within Normal Limits Back: Yes: Normal Inspection Musculoskeletal: Yes: Back pain Extremities: Yes: Normal Capillary Refill, Normal Inspection, Non-Tender, Tremors Neurological: Yes: Fully Oriented, Alert, Normal Response Integumentary: Yes: Normal Color, Diaphoresis Lymphatic: Yes: Within Normal Limits - Diagnostic (1) Alcohol dependence with uncomplicated withdrawal Current Visit: Yes Status: Chronic (2) Cannabis dependence Current Visit: Yes Status: Chronic (3) Opioid dependence with withdrawal Current Visit: Yes Status: Chronic (4) PTSD (post-traumatic stress disorder) Current Visit: No Status: Acute (5) COPD (chronic obstructive pulmonary disease) Current Visit: No Status: Chronic Qualifiers: (6) Hypertension Current Visit: No Status: Chronic Qualifiers: Hypertension type: essential hypertension (7) Nicotine dependence Current Visit: Yes Status: Chronic Qualifiers: Nicotine product type: cigarettes Substance use status: uncomplicated Qualified Code(s): F17.210 - Nicotine dependence, cigarettes, uncomplicated Cleared for Admission [facility] - Detox or Rehab [facility] Level of Care: Medically Managed Detox Regimen/Protocol: Methadone/Librium [facility] Breath Alcohol Content Breath Alcohol Content: 0.031 Urine Drug Screen - Results Drug Screen Negative: No Urine Drug Screen Results: THC-Marijuana, OPI-Opiates, FEN-Fentanyl
[2018-02-26] MEDS ORDERED: ACETAMINOPHEN 325 MG TABLET (FP) PO PRN (14:35)
[2018-02-26] MEDS ORDERED: IBUPROFEN 400 MG TABLET (FP) PO PRN (14:35)
[2018-02-26] MEDS ORDERED: MENTHOL/PHENOL 1 EACH UD MM PRN (14:35)
[2018-02-26] MEDS ORDERED: LOPERAMIDE HCL 2 MG CAPSULE PO PRN (14:35)
[2018-02-26] MEDS ORDERED: NICOTINE POLACRILEX 4 MG GUM BUC PRN (14:35)
[2018-02-26] MEDS ORDERED: chlordiazePOXIDE HCL 25 MG CAPSULE PO PRN (14:35)
[2018-02-26] MEDS ORDERED: MAGNESIUM HYDROX 2400MG/30ML ORAL SUSPENSION 30 ML CUP PO PRN (14:35)
[2018-02-26] MEDS ORDERED: METHADONE HCL 10 MG TABLET (FOR DETOX USE ONLY) PO ONE ×2 (14:35→23:00)
[2018-02-26] MEDS ORDERED: MAGNESIUM CITRATE 300 ML BOTTLE PO PRN (14:35)
[2018-02-26] MEDS ORDERED: MAG HYDROX/AL HYDROX/SIMETH 30 ML UNIT-DOSE CUP PO PRN (14:35)
[2018-02-26] MEDS ORDERED: hydrOXYzine PAMOATE 50 MG CAPSULE (FP) PO PRN (14:35)
[2018-02-26] MEDS ORDERED: guaiFENesin/D-METHORPHAN HB 10 ML UNIT-DOSE CUPS PO PRN (14:35)
[2018-02-26] MEDS ORDERED: P-EPHED 60MG/TRIPROLIDI 2.5MG TABLET PO PRN (14:35)
[2018-02-26] MEDS ORDERED: chlordiazePOXIDE HCL 25 MG CAPSULE PO ONE (15:16)
--- NOTE | 2018-02-26 17:26 | CONSULT ---
[facility] Psychiatric Consult - Data Date of interview: 02/25/18 Admission source: [facility] Identifying data: Patient is a 53 year old single male, without children, unemployed, and currently homeless. This is one of multiple admissions for patient. Patient admitted to for alcohol and opiate dependence. Substance Abuse History: Smoking Cessation. Smoking history: Current every day smoker. Have you smoked in the past 12 months: Yes. Aproximately how many cigarettes per day: 20. Hx Chewing Tobacco Use: No. Initiated information on smoking cessation: Yes. 'Breaking Loose' booklet given: 02/26/18. - Substance & Tx. History. Hx Alcohol Use: Yes. Hx Substance Use: Yes. Substance Use Type : Alcohol, Heroin. Hx Substance Use Treatment: Yes (September 2017 [facility]). - Substances Abused. Heroin. Route: Inhalation. Frequency: Daily. Amount used: 6 bags. Age of first use: 33. Date of Last Use: 02/25/18. Alcohol- vodka. Route: Oral. Frequency: Daily. Amount used: 2 pts. Age of first use: 15. Date of Last Use: 02/26/18 Medical History: denies. Psychiatric History: Patient denies h/o psychiatric hospitalization. He reports a diagnosis of MDD and PTSD. Outpatient care is provided at the [facility] clinic. Patient is prescribed celexa 10mg + Buspar 10mg BID. He denies h/o suicide attempt. Patient is currently c/o anxiety. Physical/Sexual Abuse/Trauma History: denies. Mental Status Exam - Mental Status Exam Alert and Oriented to: Time, Place, Person Cognitive Function: Good Patient Appearance: Well Groomed Mood: Euthymic Affect: Mood Congruent Patient Behavior: Fatigued, Cooperative Speech Pattern: Appropriate Voice Loudness: Moderately Soft/Quiet Thought Process: Intact, Goal Oriented Thought Disorder: Not Present Hallucinations: Denies Suicidal Ideation: Denies Homicidal Ideation: Denies Insight/Judgement: Poor Sleep: Fair Appetite: Fair Muscle strength/Tone: Normal Gait/Station: Normal Psychiatric Findings - Problem List ([place] 1, 2,3) (1) Alcohol dependence with uncomplicated withdrawal Current Visit: Yes Status: Acute (2) Cannabis dependence Current Visit: Yes Status: Chronic (3) Nicotine dependence Current Visit: Yes Status: Chronic Qualifiers: Nicotine product type: cigarettes Substance use status: uncomplicated Qualified Code(s): F17.210 - Nicotine dependence, cigarettes, uncomplicated (4) Opioid dependence with withdrawal Current Visit: Yes Status: Acute (5) Substance induced mood disorder Current Visit: Yes Status: Acute - Initial Treatment Plan Initial Treatment Plan: Psychoeducation provided. Detoxification in progress. Celexa 10mg daily + Buspar 10mg BID. Benefits and side effects discussed. Verbal consent given.
[2018-02-26] MEDS: chlordiazePOXIDE HCL 25 MG CAPSULE PO SCH ×2 (18:12→22:34)
[2018-02-26 22:10] LABS: URINE APPEARANCE TURBID; URINE BILIRUBIN NEGATIVE (<2.0 mg/dL); URINE COLOR YELLOW; URINE GLUCOSE (UA) 1+ (NEGATIVE); URINE KETONE TRACE (NEGATIVE); URINE LEUK ESTERASE NEGATIVE (NEGATIVE); URINE NITRITE NEGATIVE (NEGATIVE); URINE PROTEIN 1+ (NEGATIVE)
[2018-02-26] MEDS: THIAMINE HCL 100 MG TABLET (FP) PO SCH (22:33)
[2018-02-26] MEDS: busPIRone HCL 10 MG TABLET (FP) PO SCH (22:34)
[2018-02-27] MEDS: chlordiazePOXIDE HCL 25 MG CAPSULE PO SCH ×4 (05:59→23:02)
[2018-02-27] MEDS ORDERED: METHADONE HCL 10 MG TABLET (FOR DETOX USE ONLY) PO SCH (10:00)
[2018-02-27] MEDS: busPIRone HCL 10 MG TABLET (FP) PO SCH ×2 (11:03→23:02)
[2018-02-27] MEDS: cloNIDine HCL 0.1 MG TABLET PO SCH (11:03)
[2018-02-27] MEDS: CITALOPRAM HYDROBROMIDE 10 MG TABLET (FP) PO SCH (11:03)
[2018-02-27] MEDS: amLODIPine BESYLATE 10 MG TABLET (FP) PO SCH (11:03)
[2018-02-27] MEDS: PRENATAL VITAMINS W/ FOLIC ACID TABLET (FP) PO SCH (11:06)
[2018-02-27] MEDS: NICOTINE 21 MG/24 HOURS TOPICAL PATCH TD SCH (11:06)
[2018-02-27 11:22] LABS: HEMATOCRIT 39.3 % (35.4-49); HEMOGLOBIN 12.7 GM/dL (11.7-16.9); MCH 28.9 pg (25.7-33.7); MCHC 32.4 g/dl (32.0-35.9); MEAN CELL VOLUME 89.1 fl (80-96); MEAN PLT VOLUME 8.6 fl (7.5-11.1); PLATELET COUNT 386 K/MM3 (134-434); RBC 4.41 M/mm3 (4.00-5.60); RDW 16.5 % (11.9-15.9); WHITE BLOOD COUNT 11.6 K/mm3 (4.0-10.0)
[2018-02-27 11:47] LABS: ALK PHOS 110 U/L (45-117); ANION GAP 11 MMOL/L (8-16); BILIRUBIN,TOTAL 0.4 mg/dL (0.2-1); BLOOD UREA NITROGEN 23 mg/dL (7-18); CALCIUM 10.1 mg/dL (8.5-10.1); CHLORIDE 105 mmol/L (98-107); CO2 25 mmol/L (21-32); GLUCOSE,RANDOM 84 mg/dL (74-106); POTASSIUM 5.9 mmol/L (3.5-5.1); SGOT/AST 21 U/L (15-37); SGPT/ALT 27 U/L (13-61); SODIUM 140 mmol/L (136-145); TOT PROT 7.9 g/dl (6.4-8.2)
[2018-02-27] MEDS ORDERED: SODIUM POLYSTYRENE SULFONATE 15 GM/60 ML BOTTLE PO ONE ×2 (13:55)
--- NOTE | 2018-02-27 14:00 | PN ---
[facility] CIWA - CIWA Score Nausea/Vomitin-No Nausea/No Vomiting Muscle Tremors: 2 Anxiety: 3 Agitation: 3 Paroxysmal Sweats: 2 Orientation: 0-Oriented Tacttile Disturbances: 1-Very Mild Itch/Numbness Auditory Disturbances: 0-None Visual Disturbances: 1-Very Mild Sensitivity Headache: 0-None Present CIWA-Ar Total Score: 12 [facility] COWS - Scale Resting Pulse: 0= [place] 80 or Below Sweatin= Chills/Flushing Restless Observation: 1= Difficult to Sit Still Pupil Size: 1= Pupils >than Normal Bone or Joint Aches: 1= Mild Discomfort Runny Nose/ Eye Tearin= Runny Nose/Eyes GI Upset > 30mins: 0= None Tremor Observation of Outstretched Hands: 1= Tremor [place], Not Seen Yawning Observation: 4= Several Times/Minute Anxiety or Irritability: 2=Irritable/Anxious Goose Flesh Skin: 0=Smooth Skin COWS Score: 13 S Progress Note (SOAP) Subjective: fatigue, interrupted sleep, anxious Objective: 02/27/18 13:57 Vital Signs Temperature 98.2 F 02/27/18 13:27 Pulse Rate 65 02/27/18 13:27 Respiratory Rate 18 02/27/18 13:27 Blood Pressure 128/80 02/27/18 13:27 O2 Sat by Pulse Oximetry (%) Laboratory Last Values WBC 11.6 K/mm3 (4.0-10.0) H 02/27/18 06:00 RBC 4.41 M/mm3 (4.00-5.60) 02/27/18 06:00 Hgb 12.7 GM/dL (11.7-16.9) 02/27/18 06:00 Hct 39.3 % (35.4-49) 02/27/18 06:00 MCV 89.1 fl (80-96) 02/27/18 06:00 MCH 28.9 pg (25.7-33.7) 02/27/18 06:00 MCHC 32.4 g/dl (32.0-35.9) 02/27/18 06:00 RDW 16.5 % (11.9-15.9) H 02/27/18 06:00 Plt Count 386 K/MM3 (134-434) 02/27/18 06:00 MPV 8.6 fl (7.5-11.1) D 02/27/18 06:00 Sodium 140 mmol/L (136-145) 02/27/18 06:00 Potassium 5.9 mmol/L (3.5-5.1) H 02/27/18 06:00 Chloride 105 mmol/L (98-107) 02/27/18 06:00 Carbon Dioxide 25 mmol/L (21-32) 02/27/18 06:00 Anion Gap 11 MMOL/L (8-16) 02/27/18 06:00 BUN 23 mg/dL (7-18) H 02/27/18 06:00 Creatinine 1.0 mg/dL (0.55-1.3) 02/27/18 06:00 Creat Clearance w eGFR > 60 (>60) 02/27/18 06:00 Random Glucose 84 mg/dL (74-106) 02/27/18 06:00 Calcium 10.1 mg/dL (8.5-10.1) 02/27/18 06:00 Total Bilirubin 0.4 mg/dL (0.2-1) 02/27/18 06:00 AST 21 U/L (15-37) 02/27/18 06:00 ALT 27 U/L (13-61) 02/27/18 06:00 Alkaline Phosphatase 110 U/L (45-117) 02/27/18 06:00 Total Protein 7.9 g/dl (6.4-8.2) 02/27/18 06:00 Albumin 4.0 g/dl (3.4-5.0) 02/27/18 06:00 Urine Color Yellow 02/26/18 15:26 Urine Appearance Turbid 02/26/18 15:26 Urine pH 5.0 (5.0-8.0) 02/26/18 15:26 Ur Specific [place] 1.029 (1.001-1.035) 02/26/18 15:26 Urine Protein 1+ (NEGATIVE) H 02/26/18 15:26 Urine Glucose (UA) 1+ (NEGATIVE) H 02/26/18 15:26 Urine Ketones Trace (NEGATIVE) H 02/26/18 15:26 Urine Blood Negative (NEGATIVE) 02/26/18 15: Urine Nitrite Negative (NEGATIVE) 02/26/18 15:26 Urine Bilirubin Negative (<2.0 mg/dL) 02/26/18 15:26 Urine Urobilinogen 2.0 mg/dL (0.2-1.0) 02/26/18 15:26 Ur Leukocyte Esterase Negative (NEGATIVE) 02/26/18 15:26 Urine WBC (Auto) None /hpf (3-5) 02/26/18 15:26 Urine RBC (Auto) None /hpf (0-3) 02/26/18 15:26 RPR Titer Nonreactive (NONREACTIVE) 02/27/18 06:00 Labs noted: hyperkalemia Aox3 no distress [employer]UE CL[employer] I-XII intact full ROM ambulating in the unit independently Assessment: 02/27/18 13:58 withdrawal sx hyperkalemia Plan: kayexalate PO increase fluids repeat K+ in AM continue detox continue to monitor
[2018-02-27] MEDS: THIAMINE HCL 100 MG TABLET (FP) PO SCH (23:02)
[2018-02-27] MEDS: MELATONIN 5 MG TABLETS PO PRN (23:02)
--- NOTE | 2018-02-27 23:25 | EKG ---
Test Reason : Blood Pressure : / mmHG Vent. Rate : 074 BPM Atrial Rate : 074 BPM P-R Int : 162 ms QRS Dur : 094 ms QT Int : 386 ms P-R-T Axes : 080 065 064 degrees QTc Int : 428 ms NORMAL SINUS RHYTHM NORMAL ECG WHEN COMPARED WITH ECG OF 30-SEP-2017 21:52, NO SIGNIFICANT CHANGE WAS FOUND Confirmed by FLORECITA RODRIGEZ MD ([id number]) on 02/27/2018 11:24:46 PM Referred By: Confirmed By:FLORECITA RODRIGEZ MD
[2018-02-28] MEDS: chlordiazePOXIDE HCL 25 MG CAPSULE PO SCH ×2 (06:09→10:03)
[2018-02-28] MEDS: cloNIDine HCL 0.1 MG TABLET PO SCH (10:02)
[2018-02-28] MEDS: amLODIPine BESYLATE 10 MG TABLET (FP) PO SCH (10:02)
[2018-02-28] MEDS: CITALOPRAM HYDROBROMIDE 10 MG TABLET (FP) PO SCH (10:02)
[2018-02-28] MEDS: METHADONE HCL 5 MG TABLET (FOR DETOX USE ONLY) PO SCH (10:03)
[2018-02-28] MEDS: PRENATAL VITAMINS W/ FOLIC ACID TABLET (FP) PO SCH (10:03)
[2018-02-28] MEDS: busPIRone HCL 10 MG TABLET (FP) PO SCH ×2 (10:03→21:23)
[2018-02-28] MEDS: NICOTINE 21 MG/24 HOURS TOPICAL PATCH TD SCH (10:03)
--- NOTE | 2018-02-28 16:57 | PN ---
[facility] CIWA - CIWA Score Nausea/Vomitin-Mild Nausea/No Vomiting Muscle Tremors: 3 Anxiety: 4-Mod. Anxious/Guarded Agitation: 3 Paroxysmal Sweats: 1-Minimal [place] Moist Orientation: 0-Oriented Tacttile Disturbances: 0-None Auditory Disturbances: 0-None Visual Disturbances: 0-None Headache: 0-None Present CIWA-Ar Total Score: 12 [facility] COWS - Scale Resting Pulse: 0= [place] 80 or Below Sweatin= Chills/Flushing Restless Observation: 1= Difficult to Sit Still Pupil Size: 0= Normal to Room Light Bone or Joint Aches: 2= Severe Diffuse Aches Runny Nose/ Eye Tearin= Nasal Congestion GI Upset > 30mins: 2= Nausea/Diarrhea Tremor Observation of Outstretched Hands: 2= Slight Tremor Visible Yawning Observation: 1= 1-2x During Session Anxiety or Irritability: 2=Irritable/Anxious Goose Flesh Skin: 0=Smooth Skin COWS Score: 12 [facility] Progress Note (SOAP) Subjective: tremor sweat body ache anxiety Objective: 02/28/18 16:57 Vital Signs Temperature 97.7 F 02/28/18 07:39 Pulse Rate 56 L 02/28/18 07:39 Respiratory Rate 18 02/28/18 07:39 Blood Pressure 142/88 02/28/18 07:39 O2 Sat by Pulse Oximetry (%) Laboratory Last Values WBC 11.6 K/mm3 (4.0-10.0) H 02/27/18 06:00 RBC 4.41 M/mm3 (4.00-5.60) 02/27/18 06:00 Hgb 12.7 GM/dL (11.7-16.9) 02/27/18 06:00 Hct 39.3 % (35.4-49) 02/27/18 06:00 MCV 89.1 fl (80-96) 02/27/18 06:00 MCH 28.9 pg (25.7-33.7) 02/27/18 06:00 MCHC 32.4 g/dl (32.0-35.9) 02/27/18 06:00 RDW 16.5 % (11.9-15.9) H 02/27/18 06:00 Plt Count 386 K/MM3 (134-434) 02/27/18 06:00 MPV 8.6 fl (7.5-11.1) D 02/27/18 06:00 Sodium 140 mmol/L (136-145) 02/27/18 06:00 Potassium 5.9 mmol/L (3.5-5.1) H 02/27/18 06:00 Chloride 105 mmol/L (98-107) 02/27/18 06:00 Carbon Dioxide 25 mmol/L (21-32) 02/27/18 06:00 Anion Gap 11 MMOL/L (8-16) 02/27/18 06:00 BUN 23 mg/dL (7-18) H 02/27/18 06:00 Creatinine 1.0 mg/dL (0.55-1.3) 02/27/18 06:00 Creat Clearance w eGFR > 60 (>60) 02/27/18 06:00 Random Glucose 84 mg/dL (74-106) 02/27/18 06:00 Calcium 10.1 mg/dL (8.5-10.1) 02/27/18 06:00 Total Bilirubin 0.4 mg/dL (0.2-1) 02/27/18 06:00 AST 21 U/L (15-37) 02/27/18 06:00 ALT 27 U/L (13-61) 02/27/18 06:00 Alkaline Phosphatase 110 U/L (45-117) 02/27/18 06:00 Total Protein 7.9 g/dl (6.4-8.2) 02/27/18 06:00 Albumin 4.0 g/dl (3.4-5.0) 02/27/18 06:00 Urine Color Yellow 02/26/18 15:26 Urine Appearance Turbid 02/26/18 15:26 Urine pH 5.0 (5.0-8.0) 02/26/18 15:26 Ur Specific [place] 1.029 (1.001-1.035) 02/26/18 15:26 Urine Protein 1+ (NEGATIVE) H 02/26/18 15:26 Urine Glucose (UA) 1+ (NEGATIVE) H 02/26/18 15:26 Urine Ketones Trace (NEGATIVE) H 02/26/18 15:26 Urine Blood Negative (NEGATIVE) 02/26/18 15: Urine Nitrite Negative (NEGATIVE) 02/26/18 15:26 Urine Bilirubin Negative (<2.0 mg/dL) 02/26/18 15:26 Urine Urobilinogen 2.0 mg/dL (0.2-1.0) 02/26/18 15:26 Ur Leukocyte Esterase Negative (NEGATIVE) 02/26/18 15:26 Urine WBC (Auto) None /hpf (3-5) 02/26/18 15:26 Urine RBC (Auto) None /hpf (0-3) 02/26/18 15:26 RPR Titer Nonreactive (NONREACTIVE) 02/27/18 06:00 02/28/18 16:58 lab noted repeat K+ begin kayexalax 02/28/18 17:01 Assessment: 02/28/18 17:01 withdrawal sx hyperKalemia 02/28/18 17:01 rule out renal ddisfuction Plan: continue detox kayexala
[2018-02-28] MEDS ORDERED: SODIUM POLYSTYRENE SULFONATE 15 GM/60 ML BOTTLE PO ONE (17:15)
[2018-02-28] MEDS: chlordiazePOXIDE 5 MG CAPSULE PO SCH ×2 (18:13→22:29)
[2018-02-28] MEDS: MELATONIN 5 MG TABLETS PO PRN (21:27)
[2018-02-28] MEDS: THIAMINE HCL 100 MG TABLET (FP) PO SCH (21:27)
[2018-03-01] MEDS: chlordiazePOXIDE 5 MG CAPSULE PO SCH ×2 (05:29→11:28)
--- NOTE | 2018-03-01 09:59 | PN ---
[facility] Progress Note (SOAP) Subjective: sleepy tired sweats agitation Objective: 03/01/18 09:58 Vital Signs Temperature 96.6 F L 03/01/18 06:00 Pulse Rate 56 L 03/01/18 06:00 Respiratory Rate 18 03/01/18 06:00 Blood Pressure 120/76 03/01/18 06:00 O2 Sat by Pulse Oximetry (%) aaox3 ambulating no acute distress Assessment: 03/01/18 09:59 mild withdrawal sx Plan: hold 10am detox medication until later pt may be medicated after he is more alert and ambulating.
[2018-03-01 11:25] VITALS: BP 147/94; PULSE 67; TEMP 97.7
[2018-03-01] MEDS: METHADONE HCL 5 MG TABLET (FOR DETOX USE ONLY) PO SCH (11:25)
[2018-03-01] MEDS: busPIRone HCL 10 MG TABLET (FP) PO SCH (11:27)
[2018-03-01] MEDS: CITALOPRAM HYDROBROMIDE 10 MG TABLET (FP) PO SCH (11:27)
[2018-03-01] MEDS: cloNIDine HCL 0.1 MG TABLET PO SCH (11:27)
[2018-03-01] MEDS: amLODIPine BESYLATE 10 MG TABLET (FP) PO SCH (11:27)
[2018-03-01] MEDS: NICOTINE 21 MG/24 HOURS TOPICAL PATCH TD SCH (11:27)
[2018-03-01] MEDS: PRENATAL VITAMINS W/ FOLIC ACID TABLET (FP) PO SCH (11:27)
--- NOTE | 2018-03-01 15:50 | PN ---
S Progress Note Note: pt states he feels fine and wants to go home. Pt signed out AMA.
--- NOTE | 2018-03-01 15:53 | DS ---
[facility] Detox Discharge Summary Admission Date: 02/26/18 - History Present History: Alcohol Dependence, Opioid Dependence - Physical Exam Results Vital Signs: Vital Signs Temperature 97.7 F 03/01/18 11:24 Pulse Rate 67 03/01/18 11:24 Respiratory Rate 18 03/01/18 11:24 Blood Pressure 147/94 03/01/18 11:24 O2 Sat by Pulse Oximetry (%) - Treatment Hospital Course: Discharged Condition Good - Medication Discharge Medications: Ambulatory Orders Clonidine HCl [Catapres] 0.1 mg PO DAILY 09/10/17 Amlodipine Besylate [Norvasc -] 10 mg PO DAILY #30 tablet 10/01/17 Buspirone HCl [Buspar -] 10 mg PO BID 02/26/18 Citalopram Hydrobromide [Citalopram HBr] 10 mg PO AM 02/26/18 - Diagnosis (1) Alcohol dependence with uncomplicated withdrawal Current Visit: Yes Status: Chronic (2) Cannabis dependence Current Visit: Yes Status: Chronic (3) Opioid dependence with withdrawal Current Visit: Yes Status: Chronic (4) PTSD (post-traumatic stress disorder) Current Visit: No Status: Chronic (5) COPD (chronic obstructive pulmonary disease) Current Visit: Yes Status: Chronic Qualifiers: (6) Hypertension Current Visit: Yes Status: Chronic Qualifiers: Hypertension type: essential hypertension (7) Nicotine dependence Current Visit: Yes Status: Chronic Qualifiers: Nicotine product type: cigarettes Substance use status: uncomplicated Qualified Code(s): F17.210 - Nicotine dependence, cigarettes, uncomplicated - AMA Did Patient Leave Against Medical Advice: Yes (going home)
[2018-03-01] MEDS ORDERED: chlordiazePOXIDE HCL 10 MG CAPSULE PO SCH (17:00)
[2018-03-02] MEDS ORDERED: METHADONE HCL 10 MG TABLET (FOR DETOX USE ONLY) PO SCH (10:00)
[2018-03-03] MEDS ORDERED: METHADONE HCL 5 MG TABLET (FOR DETOX USE ONLY) PO SCH (06:00)
== END 2018-03-01 15:55 | disposition left against medical advice (07) | DRG 770 ==
LOC: YASAS 11:02 → Y6N 14:59
PROC: HZ2ZZZZ Detoxification Services for Substance Abuse Treatment (ICD-10-PCS; principal; 2018-02-26)
DX: F11.23 Opioid dependence with withdrawal (principal); F10.230 Alcohol dependence with withdrawal, uncomplicated; F12.20 Cannabis dependence, uncomplicated; F17.210 Nicotine dependence, cigarettes, uncomplicated; F43.10 Post-traumatic stress disorder, unspecified; F19.24 Other psychoactive substance dependence with psychoactive substance-induced mood disorder; I10 Essential (primary) hypertension; J44.9 Chronic obstructive pulmonary disease, unspecified; E87.5 Hyperkalemia; Z88.0 Allergy status to penicillin; Z91.013 Allergy to seafood
CPT/HCPCS: 36415; 80053; 81003; 81015; 85027; 86593; 93005; 93010; J0735

== ENCOUNTER 2018-03-27 11:44 | Inpatient (IN) | payer OTHER ==
[2018-03-27 11:54] VITALS: BMI 26.9
--- NOTE | 2018-03-27 12:00 | HP ---
COWS - Scale Resting Pulse: 0= [place] 80 or Below Sweatin= Chills/Flushing Restless Observation: 1= Difficult to Sit Still Pupil Size: 1= Pupils >than Normal Bone or Joint Aches: 2= Severe Diffuse Aches Runny Nose/ Eye Tearin= Runny Nose/Eyes GI Upset > 30mins: 2= Nausea/Diarrhea Tremor Observation: 2= Slight Tremor Visible Yawning Observation: 2= >3x During Session Anxiety or Irritability: 2=Irritable/Anxious Goose Flesh Skin: 0=Smooth Skin COWS Score: 15 CIWA Score - CIWA Score Nausea/Vomitin Muscle Tremors: 2 Anxiety: 2 Agitation: 2 Paroxysmal Sweats: 1-Minimal Palms Moist Orientation: 0-Oriented Tacttile Disturbances: 1-Very Mild Itch/Numbness Auditory Disturbances: 1-Very Mild Visual Disturbances: 0-None Headache: 2-Mild CIWA-Ar Total Score: 13 Admission ROS [facility] - HPI Chief Complaint: i need help to stop using heroin and alcohol,marijuana Allergies/Adverse Reactions: Allergies Allergy/AdvReac Type Severity Reaction Status Date / Time Penicillins Allergy Severe Difficulty Verified 03/27/18 12:27 Breathing shellfish derived Allergy Severe Rash Verified 03/27/18 12:27 turkey Allergy Severe Rash Verified 03/27/18 12:27 History of Present Illness: this 53 years old male with heroin,alcohol,and marijuana dependence,seeking detox,withdrawal symptom, multiple admissions in detox but keep relapsing last detox [facility] 02/26[facility]18 to 03/01/18 not completed nicotine weight loss insomnia no significant period of sobriety Exam Limitations: No Limitations - Ebola screening Have you traveled outside of the country in the last 21 days: No Have you been sick,other than usual withdrawal symptoms: No - Review of Systems Constitutional: Chills, Loss of Appetite, Malaise, Night Sweats, Changes in sleep, Weakness, Unintentional Wgt. Loss EENT: reports: Tearing, Nose Congestion Respiratory: reports: No Symptoms reported Cardiac: reports: No Symptoms Reported GI: reports: Diarrhea, Nausea, Poor Appetite, Abdominal cramping : reports: No Symptoms Reported Musculoskeletal: reports: Back Pain, Joint Pain, Muscle Pain, Joint Stiffness Integumentary: reports: Dryness Neuro: reports: Headache, Tremors Endocrine: reports: No Symptoms Reported, See HPI, Excessive Sweating, Flushing Hematology: reports: No Symptoms Reported Psychiatric: reports: No Sypmtoms Reported, Judgement Intact, Mood/Affect Appropiate, Orientated x3 (insomnia) Patient History - Patient Medical History Hx Anemia: No Hx Asthma: No Hx Chronic Obstructive Pulmonary Disease (COPD): No Hx Cancer: No Hx Cardiac Disorders: No Hx Congestive Heart Failure: No Hx Hypertension: Yes (on norvasc 10 mgs per day,non compliance,last med 2 weeks ago) Hx Hypercholesterolemia: No Hx Pacemaker: No HX Cerebrovascular Accident: No Hx Seizures: No Hx Dementia: No Hx Diabetes: No Hx Gastrointestinal Disorders: No Hx Liver Disease: No Hx Genitourinary Disorders: No Hx Sexually Transmitted Disorders: No Hx Renal Disease (ESRD): No Hx Thyroid Disease: No Hx Human Immunodeficiency Virus (HIV): No (last 01/16 negative) Hx Hepatitis C: No Hx Depression: Yes (no med,do not want to see psychiatrist) Hx Suicide Attempt: No Hx Bipolar Disorder: No Hx Schizophrenia: No Other Medical History: no suicidal,no homicidal - Patient Surgical History Past Surgical History: No Hx Neurologic Surgery: No Hx Cataract Extraction: No Hx Cardiac Surgery: No Hx Lung Surgery: No Hx Breast Surgery: No Hx Breast Biopsy: No Hx Abdominal Surgery: No Hx Appendectomy: No Hx Cholecystectomy: No Hx Genitourinary Surgery: No Hx Section: No Hx Orthopedic Surgery: No Anesthesia Reaction: No - PPD History Previous Implant?: Yes Documented Results: Negative w/proof Implanted On Prior [facility] Admission?: Yes Date: 01/13/17 Results: 0 mm PPD to be Administered?: Yes - Smoking Cessation Smoking history: Current every day smoker Have you smoked in the past 12 months: Yes Aproximately how many cigarettes per day: 20 Hx Chewing Tobacco Use: No Initiated information on smoking cessation: Yes 'Breaking Loose' booklet given: 03/27/18 - Substance & Tx. History Hx Alcohol Use: Yes Hx Substance Use: Yes Substance Use Type: Alcohol, Heroin, Marijuana Hx Substance Use Treatment: Yes ([facility] [place] 03/01/18 not completed) - Substances Abused Heroin Route: Inhalation Frequency: Daily Amount used: 5 bags Age of first use: 40 Date of Last Use: 03/26/18 Alcohol Route: Oral Frequency: Daily Amount used: 2 pints of vodka Age of first use: 15 Date of Last Use: 03/26/18 Marijuana/Hashish Route: Smoking Frequency: 1-3 times last 30 days Amount used: 10$ Age of first use: 15 Date of Last Use: 03/19/18 Family Disease History - Family Disease History Family Disease History: Heart Disease: Mother (), [place]: Father (, ALCOHOLIC), Other: Father, Mother Admission Physical Exam [facility] - Vital Signs Vital Signs: Vital Signs - 24 hr 03/27/18 11:52 Temperature 98 F Pulse Rate 72 Respiratory 18 Rate Blood Pressure 146/102 H - Physical General Appearance: Yes: Moderate Distress, Tremorous, Irritable, Sweating, Anxious HEENTM: Yes: Normal ENT Inspection, BRIAN, Pharynx Normal Respiratory: Yes: Lungs Clear, Normal Breath Sounds, No Respiratory Distress Neck: Yes: Within Normal Limits, Supple, Trachea in good position Breast: Yes: Within Normal Limits Cardiology: Yes: Within Normal Limits, Regular Rhythm, Regular Rate, S1, S2 Abdominal: Yes: Within Normal Limits, Normal Bowel Sounds, Non Tender, Flat, Soft Genitourinary: Yes: Within Normal Limits Back: Yes: Normal Inspection, Muscle Spasm Musculoskeletal: Yes: full range of Motion, Back pain, Joint Stiffness, Muscle Pain Extremities: Yes: Within Normal Limits, Normal Range of Motion, Tremors Neurological: Yes: senior oracle database developer II-XII NML intact, Fully Oriented, Alert, Motor Strength 5/5 Integumentary: Yes: Dry Lymphatic: Yes: Within Normal Limits - Diagnostic (1) Opioid dependence with withdrawal Current Visit: Yes Status: Acute (2) Cannabis dependence Current Visit: Yes Status: Chronic (3) Hypertension Current Visit: Yes Status: Chronic Qualifiers: Hypertension type: essential hypertension Qualified Code(s): I10 - Essential (primary) hypertension (4) Nicotine dependence Current Visit: Yes Status: Chronic Qualifiers: Nicotine product type: cigarettes Substance use status: uncomplicated Qualified Code(s): F17.210 - Nicotine dependence, cigarettes, uncomplicated (5) Alcohol dependence with uncomplicated withdrawal Current Visit: Yes Status: Acute (6) Weight loss Current Visit: Yes Status: Acute Cleared for Admission S - Detox or Rehab S Level of Care: Medically Managed Detox Regimen/Protocol: Methadone/Librium S Breath Alcohol Content Breath Alcohol Content: 0 Urine Drug Screen - Results Drug Screen Negative: No Urine Drug Screen Results: THC-Marijuana, OPI-Opiates, BZO-Benzodiazepines, MTD- Methadone, OXY-Oxycodone, FEN-Fentanyl
[2018-03-27] MEDS ORDERED: guaiFENesin/D-METHORPHAN HB 10 ML UNIT-DOSE CUPS PO PRN (12:25)
[2018-03-27] MEDS ORDERED: chlordiazePOXIDE HCL 25 MG CAPSULE PO PRN (12:25)
[2018-03-27] MEDS ORDERED: MENTHOL/PHENOL 1 EACH UD MM PRN (12:25)
[2018-03-27] MEDS ORDERED: LOPERAMIDE HCL 2 MG CAPSULE PO PRN (12:25)
[2018-03-27] MEDS ORDERED: MAG HYDROX/AL HYDROX/SIMETH 30 ML UNIT-DOSE CUP PO PRN (12:25)
[2018-03-27] MEDS ORDERED: IBUPROFEN 400 MG TABLET (FP) PO PRN (12:25)
[2018-03-27] MEDS ORDERED: MAGNESIUM HYDROX 2400MG/30ML ORAL SUSPENSION 30 ML CUP PO PRN (12:25)
[2018-03-27] MEDS ORDERED: P-EPHED 60MG/TRIPROLIDI 2.5MG TABLET PO PRN (12:25)
[2018-03-27] MEDS ORDERED: MAGNESIUM CITRATE 300 ML BOTTLE PO PRN (12:25)
[2018-03-27] MEDS ORDERED: ACETAMINOPHEN 325 MG TABLET (FP) PO PRN (12:25)
[2018-03-27] MEDS ORDERED: METHADONE HCL 10 MG TABLET (FOR DETOX USE ONLY) PO ONE ×2 (13:00→23:00)
[2018-03-27] MEDS: NICOTINE 21 MG/24 HOURS TOPICAL PATCH TD SCH (13:10)
[2018-03-27] MEDS: amLODIPine BESYLATE 10 MG TABLET (FP) PO SCH (13:15)
[2018-03-27] MEDS: chlordiazePOXIDE HCL 25 MG CAPSULE PO SCH ×2 (17:39→22:39)
[2018-03-27 18:26] LABS: URINE APPEARANCE CLEAR; URINE BILIRUBIN NEGATIVE (<2.0 mg/dL); URINE COLOR YELLOW; URINE GLUCOSE (UA) 1+ (NEGATIVE); URINE KETONE NEGATIVE (NEGATIVE); URINE LEUK ESTERASE NEGATIVE (NEGATIVE); URINE NITRITE NEGATIVE (NEGATIVE); URINE PROTEIN NEGATIVE (NEGATIVE)
[2018-03-27] MEDS: cloNIDine HCL 0.1 MG TABLET PO SCH (22:38)
[2018-03-27] MEDS: THIAMINE HCL 100 MG TABLET (FP) PO SCH (22:38)
[2018-03-28] MEDS: chlordiazePOXIDE HCL 25 MG CAPSULE PO SCH ×4 (06:00→22:48)
[2018-03-28] MEDS ORDERED: METHADONE HCL 10 MG TABLET (FOR DETOX USE ONLY) PO SCH (10:00)
[2018-03-28] MEDS: PRENATAL VITAMINS W/ FOLIC ACID TABLET (FP) PO SCH (10:37)
[2018-03-28] MEDS: amLODIPine BESYLATE 10 MG TABLET (FP) PO SCH (10:37)
[2018-03-28] MEDS: cloNIDine HCL 0.1 MG TABLET PO SCH ×2 (10:37→22:48)
[2018-03-28] MEDS: NICOTINE 21 MG/24 HOURS TOPICAL PATCH TD SCH (10:39)
--- NOTE | 2018-03-28 13:31 | PN ---
[facility] CIWA - CIWA Score Nausea/Vomitin Muscle Tremors: 4-Moderate,w/Arms Extend Anxiety: 4-Mod. Anxious/Guarded Agitation: 4-Moderately Restless Paroxysmal Sweats: 3 Orientation: 0-Oriented Tacttile Disturbances: 0-None Auditory Disturbances: 0-None Visual Disturbances: 0-None Headache: 0-None Present CIWA-Ar Total Score: 17 [facility] COWS - Scale Resting Pulse: 1= [place] 81-100 Sweatin= Chills/Flushing Restless Observation: 3= Extraneous Movement Pupil Size: 0= Normal to Room Light Bone or Joint Aches: 2= Severe Diffuse Aches Runny Nose/ Eye Tearin= Runny Nose/Eyes GI Upset > 30mins: 3= Vomiting/Diarrhea Tremor Observation of Outstretched Hands: 2= Slight Tremor Visible Yawning Observation: 1= 1-2x During Session Anxiety or Irritability: 2=Irritable/Anxious Goose Flesh Skin: 0=Smooth Skin COWS Score: 17 [facility] Progress Note (SOAP) Subjective: Patient refused to speak with television script writer Objective: 03/28/18 13:27 Last Vital Signs Temp Pulse Resp BP Pulse Ox 98.7 F 83 18 143/98 03/28/18 09:44 03/28/18 09:44 03/28/18 09:44 03/28/18 09:44 Laboratory Tests 03/27/18 13:07 Urine Color Yellow Urine Appearance Clear Urine pH 6.0 Ur Specific [place] 1.023 Urine Protein Negative Urine Glucose (UA) 1+ H Urine Ketones Negative Urine Blood Negative Urine Nitrite Negative Urine Bilirubin Negative Urine Urobilinogen 2.0 Ur Leukocyte Esterase Negative UA noted: 1+ glucose; patient refused CBC/CMP draw Assessment: 03/28/18 13:30 Withdrawal symptoms Noted with glycosuria Plan: Continue detox Encouraged PO water intake Reordered for admission CBC/CMP in AM as patient refused Glycosuria: repeat UA
--- NOTE | 2018-03-28 13:50 | EKG ---
Test Reason : Blood Pressure : / mmHG Vent. Rate : 074 BPM Atrial Rate : 074 BPM P-R Int : 156 ms QRS Dur : 088 ms QT Int : 380 ms P-R-T Axes : 075 061 062 degrees QTc Int : 421 ms NORMAL SINUS RHYTHM NONSPECIFIC T WAVE ABNORMALITY ABNORMAL ECG WHEN COMPARED WITH ECG OF 26-FEB-2018 15:43, NO SIGNIFICANT CHANGE WAS FOUND Confirmed by MD Mart, Gunnar ([id number]) on 03/28/2018 1:50:13 PM Referred By: PEDRO ALMONTE Confirmed By:Gunnar Cevallos MD
[2018-03-28] MEDS: THIAMINE HCL 100 MG TABLET (FP) PO SCH (22:48)
[2018-03-29] MEDS: chlordiazePOXIDE HCL 25 MG CAPSULE PO SCH ×2 (07:11→10:29)
[2018-03-29] MEDS: NICOTINE 21 MG/24 HOURS TOPICAL PATCH TD SCH (10:27)
[2018-03-29] MEDS: cloNIDine HCL 0.1 MG TABLET PO SCH ×2 (10:27→22:23)
[2018-03-29] MEDS: amLODIPine BESYLATE 10 MG TABLET (FP) PO SCH (10:27)
[2018-03-29] MEDS: METHADONE HCL 5 MG TABLET (FOR DETOX USE ONLY) PO SCH (10:27)
[2018-03-29] MEDS: PRENATAL VITAMINS W/ FOLIC ACID TABLET (FP) PO SCH (10:27)
--- NOTE | 2018-03-29 15:59 | PN ---
S CIWA - CIWA Score Nausea/Vomitin Muscle Tremors: 3 Anxiety: 3 Agitation: 4-Moderately Restless Paroxysmal Sweats: 2 Orientation: 0-Oriented Tacttile Disturbances: 0-None Auditory Disturbances: 0-None Visual Disturbances: 0-None Headache: 0-None Present CIWA-Ar Total Score: 14 S COWS - Scale Resting Pulse: 0= [place] 80 or Below Sweatin= Chills/Flushing Restless Observation: 1= Difficult to Sit Still Pupil Size: 0= Normal to Room Light Bone or Joint Aches: 1= Mild Discomfort Runny Nose/ Eye Tearin= Nasal Congestion GI Upset > 30mins: 0= None Tremor Observation of Outstretched Hands: 2= Slight Tremor Visible Yawning Observation: 1= 1-2x During Session Anxiety or Irritability: 2=Irritable/Anxious Goose Flesh Skin: 0=Smooth Skin COWS Score: 9 S Progress Note (SOAP) Subjective: Not wanting to talk with provider Objective: 03/29/18 15:59 Agitated Anxious angry Vital Signs Temperature 97.1 F L 03/29/18 13:09 Pulse Rate 66 03/29/18 13:09 Respiratory Rate 18 03/29/18 13:09 Blood Pressure 116/76 03/29/18 13:09 O2 Sat by Pulse Oximetry (%) Assessment: 03/29/18 16:00 withdrawal sx Plan: continue detox
[2018-03-29] MEDS: chlordiazePOXIDE 5 MG CAPSULE PO SCH ×2 (18:15→22:23)
[2018-03-29] MEDS: THIAMINE HCL 100 MG TABLET (FP) PO SCH (22:23)
[2018-03-29] MEDS: MELATONIN 5 MG TABLETS PO PRN (22:24)
[2018-03-30] MEDS: chlordiazePOXIDE 5 MG CAPSULE PO SCH ×2 (06:02→10:31)
[2018-03-30] MEDS: amLODIPine BESYLATE 10 MG TABLET (FP) PO SCH (10:31)
[2018-03-30] MEDS: PRENATAL VITAMINS W/ FOLIC ACID TABLET (FP) PO SCH (10:31)
[2018-03-30] MEDS: METHADONE HCL 5 MG TABLET (FOR DETOX USE ONLY) PO SCH (10:31)
[2018-03-30] MEDS: NICOTINE 21 MG/24 HOURS TOPICAL PATCH TD SCH (10:33)
[2018-03-30] MEDS: cloNIDine HCL 0.1 MG TABLET PO SCH ×2 (10:33→22:10)
--- NOTE | 2018-03-30 10:46 | PN ---
S Progress Note Note: PATIENT CONTINUES WITH DETOX REGIMEN. C/O INTERRUPTED SLEEP. IRRITABLE. Laboratory Tests 03/27/18 13:07 Urine Color Yellow Urine Appearance Clear Urine pH 6.0 Ur Specific [place] 1.023 Urine Protein Negative Urine Glucose (UA) 1+ H Urine Ketones Negative Urine Blood Negative Urine Nitrite Negative Urine Bilirubin Negative Urine Urobilinogen 2.0 Ur Leukocyte Esterase Negative Vital Signs Temperature 96.9 F L 03/30/18 09:34 Pulse Rate 63 03/30/18 09:34 Respiratory Rate 18 03/30/18 09:34 Blood Pressure 139/93 03/30/18 09:34 O2 Sat by Pulse Oximetry (%) PE: ANXIOUS AND IRRITABLE ALERT AND ORIENTED X 3 SKIN WARM AND DRY AMB AD SHYLA A/P WITHDRAWAL SX CONTINUE DETOX ENCOURAGE ORAL FLUIDS CONTINUE TO MONITOR CLINICALLY
[2018-03-30] MEDS: chlordiazePOXIDE HCL 10 MG CAPSULE PO SCH ×2 (18:07→22:11)
[2018-03-30] MEDS ORDERED: chlordiazePOXIDE 5 MG CAPSULE ONE ×2 (21:38→21:56)
[2018-03-30] MEDS: THIAMINE HCL 100 MG TABLET (FP) PO SCH (22:10)
[2018-03-30] MEDS: MELATONIN 5 MG TABLETS PO PRN (22:14)
[2018-03-31] MEDS: chlordiazePOXIDE HCL 10 MG CAPSULE PO SCH ×2 (06:09→10:15)
[2018-03-31] MEDS ORDERED: METHADONE HCL 10 MG TABLET (FOR DETOX USE ONLY) PO SCH (10:00)
[2018-03-31 10:12] LABS: HEMATOCRIT 38.4 % (35.4-49); HEMOGLOBIN 12.6 GM/dL (11.7-16.9); MCH 28.6 pg (25.7-33.7); MCHC 32.9 g/dl (32.0-35.9); MEAN CELL VOLUME 87.1 fl (80-96); MEAN PLT VOLUME 8.1 fl (7.5-11.1); PLATELET COUNT 338 K/MM3 (134-434); RBC 4.41 M/mm3 (4.00-5.60); RDW 15.4 % (11.9-15.9); WHITE BLOOD COUNT 7.6 K/mm3 (4.0-10.0)
[2018-03-31 10:13] LABS: BASO % 1.9 % (0-2.0); EOS % 8.6 % (0-4.5); LYMPH % 23.2 % (8-40); NEUT % 56.3 % (42.8-82.8)
[2018-03-31] MEDS: PRENATAL VITAMINS W/ FOLIC ACID TABLET (FP) PO SCH (10:15)
[2018-03-31] MEDS: NICOTINE 21 MG/24 HOURS TOPICAL PATCH TD SCH (10:16)
[2018-03-31] MEDS: cloNIDine HCL 0.1 MG TABLET PO SCH ×2 (10:16→22:02)
[2018-03-31] MEDS: amLODIPine BESYLATE 10 MG TABLET (FP) PO SCH (10:16)
[2018-03-31 10:33] LABS: ALBUMIN 3.4 g/dl (3.4-5.0); ALK PHOS 84 U/L (45-117); ANION GAP 8 MMOL/L (8-16); BILIRUBIN,TOTAL 0.2 mg/dL (0.2-1); BLOOD UREA NITROGEN 13 mg/dL (7-18); CALCIUM 8.9 mg/dL (8.5-10.1); CHLORIDE 108 mmol/L (98-107); CO2 23 mmol/L (21-32); CREATININE 0.9 mg/dL (0.55-1.3); GLUCOSE,RANDOM 80 mg/dL (74-106); POTASSIUM 4.2 mmol/L (3.5-5.1); SGOT/AST 16 U/L (15-37); SGPT/ALT 26 U/L (13-61); SODIUM 139 mmol/L (136-145); TOT PROT 6.7 g/dl (6.4-8.2)
--- NOTE | 2018-03-31 13:05 | PN ---
[facility] Progress Note (SOAP) Subjective: Interrupted sleep Objective: 03/31/18 13:01 Last Vital Signs Temp Pulse Resp BP Pulse Ox 97.3 F L 64 18 121/78 03/31/18 09:11 03/31/18 09:11 03/31/18 09:11 03/31/18 09:11 Laboratory Tests 03/27/18 03/31/18 03/31/18 13:07 07:00 07:00 WBC 7.6 RBC 4.41 Hgb 12.6 Hct 38.4 MCV 87.1 MCH 28.6 MCHC 32.9 RDW 15.4 Plt Count 338 MPV 8.1 Absolute Neuts (auto) 4.3 Neutrophils % 56.3 Lymphocytes % 23.2 Monocytes % 10.0 Eosinophils % 8.6 H Basophils % 1.9 Nucleated RBC % 0 Sodium 139 Potassium 4.2 Chloride 108 H Carbon Dioxide 23 Anion Gap 8 BUN 13 Creatinine 0.9 Creat Clearance w eGFR > 60 Random Glucose 80 Calcium 8.9 Total Bilirubin 0.2 AST 16 ALT 26 Alkaline Phosphatase 84 Total Protein 6.7 Albumin 3.4 Urine Color Yellow Urine Appearance Clear Urine pH 6.0 Ur Specific [place] 1.023 Urine Protein Negative Urine Glucose (UA) 1+ H Urine Ketones Negative Urine Blood Negative Urine Nitrite Negative Urine Bilirubin Negative Urine Urobilinogen 2.0 Ur Leukocyte Esterase Negative Labs reviewed: UA 1+ glucose Assessment: 03/31/18 13:04 Withdrawal symptoms Noted with glycosuria Plan: Continue detox Glycosuria: encouraged PO water intake, ordered for repeated UA but patient refused. Instructed to follow up with his PCP after discharge. Patient for discharge tomorrow.
[2018-03-31 17:56] VITALS: BP 129/87; PULSE 68; TEMP 97.1
[2018-03-31] MEDS: MELATONIN 5 MG TABLETS PO PRN (22:02)
[2018-03-31] MEDS: THIAMINE HCL 100 MG TABLET (FP) PO SCH (22:03)
[2018-04-01] MEDS ORDERED: METHADONE HCL 5 MG TABLET (FOR DETOX USE ONLY) PO SCH (06:00)
--- NOTE | 2018-04-01 10:12 | DS ---
[facility] Detox Discharge Summary Admission Date: 03/27/18 Discharge Date: 04/01/18 - History Present History: Alcohol Dependence, Opioid Dependence - Physical Exam Results Vital Signs: Vital Signs Temperature 97.1 F L 03/31/18 17:55 Pulse Rate 68 03/31/18 17:55 Respiratory Rate 18 04/01/18 03:30 Blood Pressure 129/87 03/31/18 17:55 O2 Sat by Pulse Oximetry (%) Pertinent Admission Physical Exam Findings: PATIENT TOLERATED DETOX REGIMEN WITHOUT ADVERSE EVENT. PATIENT CLINICALLY STABLE UPON D/C. ALERT AND ORIENTED X 3, AMB AD SHYLA. DENIES SI/HI. PATIENT ENCOURAGED TO ATTEND GROUP MEETINGS TO PREVENT RELAPSE AND TO FOLLOW UP WITH PCP WITHIN ONE WEEK OF D/C. PATIENT ALSO ADVISED TO SEEK MEDICAL ATTENTION IF WITHDRAWAL SX OCCUR. D/C INSTRUCTIONS PROVIDED BY STAFF TO PATIENT. - Treatment Hospital Course: Detox Protocol Followed, Detoxed Safely, Responded well, Discharged Condition Good - Medication Discharge Medications: Ambulatory Orders Clonidine HCl [Catapres] 0.1 mg PO DAILY 09/10/17 Amlodipine Besylate [Norvasc -] 10 mg PO DAILY #30 tablet 10/01/17 Buspirone HCl [Buspar -] 10 mg PO BID 02/26/18 Citalopram Hydrobromide [Citalopram HBr] 10 mg PO AM 02/26/18 - Diagnosis (1) Alcohol dependence with uncomplicated withdrawal Status: Resolved (2) Opioid dependence with withdrawal Status: Resolved - AMA Did Patient Leave Against Medical Advice: No
== END 2018-04-01 07:34 | disposition home or self-care (01) | DRG 773 ==
LOC: YASAS 11:44 → Y3N 12:22
PROC: HZ2ZZZZ Detoxification Services for Substance Abuse Treatment (ICD-10-PCS; principal; 2018-03-27)
DX: F11.23 Opioid dependence with withdrawal (principal); F10.230 Alcohol dependence with withdrawal, uncomplicated; F12.20 Cannabis dependence, uncomplicated; F17.210 Nicotine dependence, cigarettes, uncomplicated; F19.24 Other psychoactive substance dependence with psychoactive substance-induced mood disorder; I10 Essential (primary) hypertension; R81 Glycosuria; Z91.14 Patient's other noncompliance with medication regimen; Z88.0 Allergy status to penicillin; Z91.013 Allergy to seafood
CPT/HCPCS: 36415; 80053; 81003; 85025; 93005; 93010; J0735

== ENCOUNTER 2018-06-02 15:02 | Inpatient (IN) | payer OTHER ==
[2018-06-02 15:50] VITALS: BMI 25.5
[2018-06-02] MEDS ORDERED: MELATONIN 5 MG TABLETS PO PRN (22:00)
--- NOTE | 2018-06-02 22:20 | HP ---
COWS - Scale Resting Pulse: 0= [place] 80 or Below Sweatin= Chills/Flushing Restless Observation: 1= Difficult to Sit Still Pupil Size: 0= Normal to Room Light Bone or Joint Aches: 4=Acute Joint/Muscle Pain Runny Nose/ Eye Tearin= Nasal Congestion GI Upset > 30mins: 2= Nausea/Diarrhea Tremor Observation: 0= None Yawning Observation: 0= None Anxiety or Irritability: 2=Irritable/Anxious Goose Flesh Skin: 0=Smooth Skin COWS Score: 11 CIWA Score Nausea/Vomitin-Mild Nausea/No Vomiting Muscle Tremors: None Anxiety: 4-Mod. Anxious/Guarded Agitation: 4-Moderately Restless Paroxysmal Sweats: 1-Minimal Palms Moist Orientation: 0-Oriented Tacttile Disturbances: 0-None Auditory Disturbances: 0-None Visual Disturbances: 0-None Headache: 0-None Present CIWA-Ar Total Score: 10 - Admission Criteria [facility] Guidelines: Admission for Medically Managed Detox: Requires at least one of the followin. CIWA greater than 12 2. Seizures within the past 24 hours 3. Delirium tremens within the past 24 hours 4. Hallucinations within the past 24 hours 5. Acute intervention needed for co occurring medical disorder 6. Acute intervention needed for co occurring psychiatric disorder 7. Severe withdrawal that cannot be handled at a lower level of care (continued vomiting, continued diarrhea, abnormal vital signs) requiring intravenous medication and/or fluids 8. Patient presents the following: Acute intervention needed for co-occurring med or psych disorder Admission Criteria Met: Admission criteria met Admission [facility] Chief Complaint: C/O WORSENING WITHDRAWAL SX'S. SEEKING DETOX Allergies/Adverse Reactions: Allergies Allergy/AdvReac Type Severity Reaction Status Date / Time Penicillins Allergy Severe Difficulty Verified 06/02/18 17:16 Breathing shellfish derived Allergy Severe Rash Verified 06/02/18 17:16 turkey Allergy Severe Rash Verified 06/02/18 17:16 History of Present Illness: 53 Y.O. MALE WITH HX/O ALCOHOL AND OPIOID DEPENDENCE HERE FOR DETOX. CLIENT IS KNOWN TO THIS PROGRAM. 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 REPORTS IMMEDIATELY RELAPSING. NOW PRESENT WITH C/O WITHDRAWAL SXS'. COWS 11/ CIWA 10 WITH PMHX- HTN.CLIENT IS VERY AGITATED AND RUDE DURING THE INTERVIEW PROCESS. FREQUENT REDIRECTION REQUIRED.DENIES ANY SIGNIFICANT PERIOD OF CLEAN TIME. DENIES HX/O SI/HI, AVH, DRUG OVERDOSE, SEIZURE D/O. HOMELESS, UNEMPLOYED, DENIES LEGALS PMHX- HTN PSYCH- DENIES Exam Limitations: No Limitations - Ebola screening Have you traveled outside of the country in the last 21 days: No (N) Have you had contact with anyone from an Ebola affected area: No Have you been sick,other than usual withdrawal symptoms: No Do you have a fever: No - Review of Systems Constitutional: Chills, Loss of Appetite, Malaise, Night Sweats, Changes in sleep EENT: reports: No Symptoms Reported Respiratory: reports: No Symptoms reported Cardiac: reports: No Symptoms Reported GI: reports: Diarrhea, Nausea, Poor Appetite, Poor Fluid Intake, Vomiting : reports: No Symptoms Reported Musculoskeletal: reports: Back Pain, Joint Pain Integumentary: reports: No Symptoms Reported Neuro: reports: No Symptoms reported Endocrine: reports: No Symptoms Reported Hematology: reports: No Symptoms Reported Psychiatric: reports: Agitated, Anxious Other Systems: Reviewed and Negative Patient History - Patient Medical History Hx Anemia: No Hx Asthma: Yes (CHILDHOOD) Hx Chronic Obstructive Pulmonary Disease (COPD): No Hx Cancer: No Hx Cardiac Disorders: No Hx Congestive Heart Failure: No Hx Hypertension: Yes (NON COMPLAINT WITH MEDS) Hx Hypercholesterolemia: No Hx Pacemaker: No HX Cerebrovascular Accident: No Hx Seizures: No Hx Dementia: No Hx Diabetes: No Hx Gastrointestinal Disorders: No Hx Liver Disease: No Hx Genitourinary Disorders: No Hx Sexually Transmitted Disorders: No Hx Renal Disease (ESRD): No Hx Thyroid Disease: No Hx Human Immunodeficiency Virus (HIV): No Hx Hepatitis C: No Hx Depression: No Hx Suicide Attempt: No Hx Bipolar Disorder: No Hx Schizophrenia: No - Patient Surgical History Past Surgical History: No Hx Neurologic Surgery: No Hx Cataract Extraction: No Hx Cardiac Surgery: No Hx Lung Surgery: No Hx Breast Surgery: No Hx Breast Biopsy: No Hx Abdominal Surgery: No Hx Appendectomy: No Hx Cholecystectomy: No Hx Genitourinary Surgery: No Hx Section: No Hx Orthopedic Surgery: No Anesthesia Reaction: No - PPD History Previous Implant?: Yes Documented Results: Negative w/proof Implanted On Prior R Admission?: Yes Date: 03/29/18 Results: 0 mm PPD to be Administered?: No - Smoking Cessation Smoking history: Current every day smoker Have you smoked in the past 12 months: Yes Aproximately how many cigarettes per day: 20 Cigars Per Day: 0 Hx Chewing Tobacco Use: No Initiated information on smoking cessation: Yes 'Breaking Loose' booklet given: 06/02/18 - Substance & Tx. History Hx Alcohol Use: Yes Hx Substance Use: Yes Substance Use Type: Alcohol, Heroin Hx Substance Use Treatment: Yes ([facility]) - Substances Abused Alcohol Route: Oral Frequency: Daily Amount used: LIQUOR- 2 PINTS, BEER- 1 SIX PACK Age of first use: 15 Date of Last Use: 06/02/18 Heroin Route: Inhalation Frequency: Daily Amount used: 12 BAGS Age of first use: 39 Date of Last Use: 06/01/18 Family Disease History - Family Disease History Family Disease History: Heart Disease: Mother (), CA: Father (, ALCOHOLIC), Other: Father, Mother Admission Physical Exam [facility] - Vital Signs Vital Signs: Vital Signs - 24 hr 06/02/18 15:47 Temperature 98 F Pulse Rate 72 Respiratory 19 Rate Blood Pressure 152/98 - Physical General Appearance: Yes: Appropriately Dressed, Irritable, Other (RUDE DISRESPECTFUL RACIAL REMARKS IRRITABLE/AGITATED) HEENTM: Yes: EOMI, Normocephalic, Normal Voice, BRIAN, Pharynx Normal, Other ( POOR DENTITION MISSING TEETH) Respiratory: Yes: Chest Non-Tender, Lungs Clear, Normal Breath Sounds, No Respiratory Distress, No Accessory Muscle Use Neck: Yes: No masses,lesions,Nodules, Supple, Trachea in good position Breast: Yes: Breast Exam Deferred Cardiology: Yes: Regular Rhythm, Regular Rate, S1, S2 Abdominal: Yes: Non Tender, Flat, Soft, Increased Bowel Sounds Genitourinary: Yes: Other (NO C/O) Back: Yes: Normal Inspection Musculoskeletal: Yes: full range of Motion, Gait Steady Extremities: Yes: Normal Capillary Refill, Normal Range of Motion, Non-Tender Neurological: Yes: Fully Oriented, Alert, Motor Strength 5/5 Integumentary: Yes: Dry, Warm Lymphatic: Yes: Within Normal Limits - Diagnostic (1) Non compliance w medication regimen Current Visit: Yes Status: Chronic (2) Homeless Current Visit: Yes Status: Suspected (3) Substance induced mood disorder Current Visit: No Status: Suspected (4) Cannabis dependence Current Visit: Yes Status: Chronic (5) Hypertension Current Visit: Yes Status: Chronic Qualifiers: Hypertension type: essential hypertension Qualified Code(s): I10 - Essential (primary) hypertension (6) Nicotine dependence Current Visit: Yes Status: Chronic Qualifiers: Nicotine product type: cigarettes Substance use status: uncomplicated Qualified Code(s): F17.210 - Nicotine dependence, cigarettes, uncomplicated (7) Alcohol dependence with uncomplicated withdrawal Current Visit: Yes Status: Acute (8) Opioid dependence with withdrawal Current Visit: Yes Status: Acute (9) Substance induced mood disorder Current Visit: Yes Status: Chronic (10) Substance-induced sleep disorder Current Visit: Yes Status: Chronic Cleared for Admission [facility] - Detox or Rehab [facility] Level of Care: Medically Managed Detox Regimen/Protocol: Methadone/Librium Claeared for Rehab Admission: No S Breath Alcohol Content Breath Alcohol Content: 0.047 Urine Drug Screen - Results Drug Screen Negative: No Urine Drug Screen Results: THC-Marijuana, OPI-Opiates, BAR-Barbiturates, MTD- Methadone, FEN-Fentanyl
[2018-06-02] MEDS ORDERED: NICOTINE POLACRILEX 2 MG GUM BC PRN (22:23)
[2018-06-02] MEDS ORDERED: chlordiazePOXIDE HCL 25 MG CAPSULE PO PRN (22:23)
[2018-06-02] MEDS ORDERED: IBUPROFEN 400 MG TABLET (FP) PO PRN (22:23)
[2018-06-02] MEDS ORDERED: guaiFENesin/D-METHORPHAN HB 10 ML UNIT-DOSE CUPS PO PRN (22:23)
[2018-06-02] MEDS ORDERED: MAGNESIUM CITRATE 300 ML BOTTLE PO PRN (22:23)
[2018-06-02] MEDS ORDERED: METHADONE HCL 10 MG TABLET (FOR DETOX USE ONLY) PO ONE ×2 (22:23→23:00)
[2018-06-02] MEDS ORDERED: LOPERAMIDE HCL 2 MG CAPSULE PO PRN (22:23)
[2018-06-02] MEDS ORDERED: ACETAMINOPHEN 325 MG TABLET (FP) PO PRN (22:23)
[2018-06-02] MEDS ORDERED: P-EPHED 60MG/TRIPROLIDI 2.5MG TABLET PO PRN (22:23)
[2018-06-02] MEDS ORDERED: MAG HYDROX/AL HYDROX/SIMETH 30 ML UNIT-DOSE CUP PO PRN (22:23)
[2018-06-02] MEDS ORDERED: MENTHOL/PHENOL 1 EACH UD MM PRN (22:23)
[2018-06-02] MEDS ORDERED: MAGNESIUM HYDROX 2400MG/30ML ORAL SUSPENSION 30 ML CUP PO PRN (22:23)
[2018-06-02] MEDS: chlordiazePOXIDE HCL 25 MG CAPSULE PO SCH (23:44)
[2018-06-03] MEDS: chlordiazePOXIDE HCL 25 MG CAPSULE PO SCH ×4 (05:44→22:29)
--- NOTE | 2018-06-03 09:18 | PN ---
S CIWA - CIWA Score Nausea/Vomitin Muscle Tremors: 2 Anxiety: 2 Agitation: 2 Paroxysmal Sweats: 1-Minimal Palms Moist Orientation: 0-Oriented Tacttile Disturbances: 1-Very Mild Itch/Numbness Auditory Disturbances: 1-Very Mild Visual Disturbances: 0-None Headache: 2-Mild CIWA-Ar Total Score: 13 BHS COWS - Scale Resting Pulse: 0= [place] 80 or Below Sweatin= Chills/Flushing Restless Observation: 3= Extraneous Movement Pupil Size: 1= Pupils >than Normal Bone or Joint Aches: 2= Severe Diffuse Aches Runny Nose/ Eye Tearin= Nasal Congestion GI Upset > 30mins: 2= Nausea/Diarrhea Tremor Observation of Outstretched Hands: 2= Slight Tremor Visible Yawning Observation: 1= 1-2x During Session Anxiety or Irritability: 2=Irritable/Anxious Goose Flesh Skin: 0=Smooth Skin COWS Score: 15 BHS Progress Note (SOAP) Subjective: alert,irritable,anxious,interrupted sleep,tremor,pain in the body and back Objective: 06/03/18 09:17 Vital Signs Temperature 97.5 F L 06/03/18 06:00 Pulse Rate 72 06/03/18 08:00 Respiratory Rate 18 06/03/18 06:00 Blood Pressure 167/97 06/03/18 06:00 O2 Sat by Pulse Oximetry (%) labs pending Assessment: 06/03/18 09:17 withdrawal symptom Plan: continue detox
[2018-06-03] MEDS ORDERED: CYCLOBENZAPRINE HCL 10 MG TABLET (FP) PO PRN (09:20)
[2018-06-03] MEDS ORDERED: METHADONE HCL 10 MG TABLET (FOR DETOX USE ONLY) PO SCH (10:00)
[2018-06-03 10:23] LABS: HEMATOCRIT 38.5 % (35.4-49); HEMOGLOBIN 12.3 GM/dL (11.7-16.9); MCHC 31.9 g/dl (32.0-35.9); MEAN CELL VOLUME 84.7 fl (80-96); MEAN PLT VOLUME 7.7 fl (7.5-11.1); PLATELET COUNT 295 K/MM3 (134-434); RBC 4.54 M/mm3 (4.00-5.60); RDW 15.2 % (11.9-15.9); WHITE BLOOD COUNT 6.3 K/mm3 (4.0-10.0)
[2018-06-03] MEDS: PRENATAL VITAMINS W/ FOLIC ACID TABLET (FP) PO SCH (10:49)
[2018-06-03] MEDS: amLODIPine BESYLATE 10 MG TABLET (FP) PO SCH (10:49)
[2018-06-03] MEDS: cloNIDine HCL 0.1 MG TABLET PO SCH ×2 (10:49→22:29)
[2018-06-03 10:51] LABS: ALBUMIN 3.3 g/dl (3.4-5.0); ALK PHOS 77 U/L (45-117); ANION GAP 7 MMOL/L (8-16); BILIRUBIN,TOTAL 0.3 mg/dL (0.2-1); BLOOD UREA NITROGEN 16 mg/dL (7-18); CALCIUM 8.7 mg/dL (8.5-10.1); CHLORIDE 105 mmol/L (98-107); CO2 28 mmol/L (21-32); CREATININE 1.1 mg/dL (0.55-1.3); GLUCOSE,RANDOM 92 mg/dL (74-106); POTASSIUM 4.2 mmol/L (3.5-5.1); SGOT/AST 21 U/L (15-37); SGPT/ALT 20 U/L (13-61); SODIUM 140 mmol/L (136-145); TOT PROT 6.6 g/dl (6.4-8.2)
[2018-06-03] MEDS: NICOTINE 21 MG/24 HOURS TOPICAL PATCH TD SCH (10:56)
[2018-06-03 16:07] LABS: URINE APPEARANCE CLEAR; URINE BILIRUBIN NEGATIVE (<2.0 mg/dL); URINE COLOR AMBER; URINE GLUCOSE (UA) 3+ (NEGATIVE); URINE KETONE TRACE (NEGATIVE); URINE LEUK ESTERASE NEGATIVE (NEGATIVE); URINE NITRITE NEGATIVE (NEGATIVE); URINE PROTEIN 1+ (NEGATIVE)
[2018-06-03 16:16] LABS: EPI CELLS RARE /HPF (FEW); URINE MUCUS RARE
--- NOTE | 2018-06-03 17:34 | CONSULT ---
[facility] Psychiatric Consult - Data Date of interview: 06/03/17 Admission source: [facility] Identifying data: Patient is a 53 year old single male, without children, unemployed, and currently homeless. This is one of multiple admissions for patient. Patient admitted to for alcohol and opiate dependence. Substance Abuse History: Smoking Cessation. Smoking history: Current every day smoker. Have you smoked in the past 12 months: Yes. Aproximately how many cigarettes per day: 20. Cigars Per Day: 0. Hx Chewing Tobacco Use: No. Initiated information on smoking cessation: Yes. 'Breaking Loose' booklet given : 06/02/18. - Substance & Tx. History. Hx Alcohol Use: Yes. Hx Substance Use : Yes. Substance Use Type: Alcohol, Heroin. Hx Substance Use Treatment: Yes ( [facility]). - Substances Abused. Alcohol. Route: Oral. Frequency: Daily. Amount used: LIQUOR- 2 PINTS, BEER- 1 SIX PACK. Age of first use: 15. Date of Last Use: 06/02/18. Heroin. Route: Inhalation. Frequency: Daily. Amount used: 12 BAGS. Age of first use: 39. Date of Last Use: 06/01/18 Medical History: Asthma, hypertension Psychiatric History: Patient presents as slightly irritable. Patient denies h/o psychiatric hospitalization. Outpatient psychiatric care was most recently provided 3 months ago at the [facility] clinic. Mr. Zurita was prescribed celexa 10mg. Patient denies h/o suicide attempt. Physical/Sexual Abuse/Trauma History: denies. Mental Status Exam - Mental Status Exam Alert and Oriented to: Time, Place, Person Cognitive Function: Good Patient Appearance: Well Groomed Mood: Irritable Affect: Mood Congruent Patient Behavior: Cooperative Speech Pattern: Appropriate Voice Loudness: Normal Thought Process: Intact, Goal Oriented Thought Disorder: Not Present Hallucinations: Denies Suicidal Ideation: Denies Homicidal Ideation: Denies Insight/Judgement: Poor Sleep: Fair Appetite: Fair Muscle strength/Tone: Normal Gait/Station: Normal Psychiatric Findings - Problem List ([place] 1, 2,3) (1) Alcohol dependence with uncomplicated withdrawal Current Visit: Yes Status: Acute (2) Opioid dependence with withdrawal Current Visit: Yes Status: Acute (3) Substance induced mood disorder Current Visit: Yes Status: Acute (4) Cannabis dependence Current Visit: Yes Status: Chronic - Initial Treatment Plan Initial Treatment Plan: Psychoeducation provided. Will order Celexa 10mg daily. Benefits and side effects discussed. Verbal consent given.
[2018-06-03] MEDS: THIAMINE HCL 100 MG TABLET (FP) PO SCH (22:29)
[2018-06-04] MEDS: chlordiazePOXIDE HCL 25 MG CAPSULE PO SCH ×3 (06:12→17:38)
[2018-06-04] MEDS: METHADONE HCL 5 MG TABLET (FOR DETOX USE ONLY) PO SCH (10:29)
[2018-06-04] MEDS: amLODIPine BESYLATE 10 MG TABLET (FP) PO SCH (10:29)
[2018-06-04] MEDS: PRENATAL VITAMINS W/ FOLIC ACID TABLET (FP) PO SCH (10:29)
[2018-06-04] MEDS: cloNIDine HCL 0.1 MG TABLET PO SCH ×2 (10:29→23:17)
[2018-06-04] MEDS: CITALOPRAM HYDROBROMIDE 10 MG TABLET (FP) PO SCH (10:29)
[2018-06-04] MEDS: NICOTINE 21 MG/24 HOURS TOPICAL PATCH TD SCH (10:30)
--- NOTE | 2018-06-04 17:23 | PN ---
S CIWA - CIWA Score Nausea/Vomitin-No Nausea/No Vomiting Muscle Tremors: 2 Anxiety: 3 Agitation: 0-Normal Activity Paroxysmal Sweats: 2 Orientation: 0-Oriented Tacttile Disturbances: 1-Very Mild Itch/Numbness Auditory Disturbances: 0-None Visual Disturbances: 2-Mild Sensitivity Headache: 0-None Present CIWA-Ar Total Score: 10 S COWS - Scale Resting Pulse: 0= [place] 80 or Below Sweatin= Chills/Flushing Restless Observation: 0= Sits Still Pupil Size: 0= Normal to Room Light Bone or Joint Aches: 0= None Runny Nose/ Eye Tearin= Nasal Congestion GI Upset > 30mins: 0= None Tremor Observation of Outstretched Hands: 2= Slight Tremor Visible Yawning Observation: 1= 1-2x During Session Anxiety or Irritability: 2=Irritable/Anxious Goose Flesh Skin: 0=Smooth Skin COWS Score: 7 S Progress Note (SOAP) Subjective: Sweating, Tremors, Interrupted Sleep. Objective: PATIENT A & O X 3. IN NO ACUTE DISTRESS. 06/04/18 17:20 Vital Signs Temperature 97.9 F 06/04/18 13:41 Pulse Rate 70 06/04/18 13:41 Respiratory Rate 18 06/04/18 13:41 Blood Pressure 143/98 06/04/18 13:41 O2 Sat by Pulse Oximetry (%) Laboratory Tests 06/03/18 06/03/18 06/03/18 07:00 07:00 07:00 WBC 6.3 RBC 4.54 Hgb 12.3 Hct 38.5 MCV 84.7 MCH 27.0 MCHC 31.9 L RDW 15.2 Plt Count 295 MPV 7.7 Sodium 140 Potassium 4.2 Chloride 105 Carbon Dioxide 28 Anion Gap 7 L BUN 16 Creatinine 1.1 Creat Clearance w eGFR > 60 Random Glucose 92 Calcium 8.7 Total Bilirubin 0.3 AST 21 ALT 20 Alkaline Phosphatase 77 Total Protein 6.6 Albumin 3.3 L Urine Color Urine Appearance Urine pH Ur Specific [place] Urine Protein Urine Glucose (UA) Urine Ketones Urine Blood Urine Nitrite Urine Bilirubin Urine Urobilinogen Ur Leukocyte Esterase Urine WBC (Auto) Urine RBC (Auto) Ur Epithelial Cells Urine Mucus RPR Titer HIV 1&2 Antibody Screen Negative HIV P24 Antigen Negative 06/03/18 06/03/18 07:00 11:00 WBC RBC Hgb Hct MCV MCH MCHC RDW Plt Count MPV Sodium Potassium Chloride Carbon Dioxide Anion Gap BUN Creatinine Creat Clearance w eGFR Random Glucose Calcium Total Bilirubin AST ALT Alkaline Phosphatase Total Protein Albumin Urine Color [place] Urine Appearance Clear Urine pH 6.0 Ur Specific [place] 1.028 Urine Protein 1+ H Urine Glucose (UA) 3+ H Urine Ketones Trace H Urine Blood Negative Urine Nitrite Negative Urine Bilirubin Negative Urine Urobilinogen 2.0 Ur Leukocyte Esterase Negative Urine WBC (Auto) 1 Urine RBC (Auto) 5 Ur Epithelial Cells Rare Urine Mucus Rare RPR Titer Nonreactive HIV 1&2 Antibody Screen HIV P24 Antigen LABS NOTED. Assessment: 06/04/18 17:21 WITHDRAWAL SYMPTOMS. Plan: CONTINUE DETOX. ENCOURAGE AMBULATION. INCREASE DAILY PO FLUID INTAKE.
[2018-06-04] MEDS: chlordiazePOXIDE 5 MG CAPSULE PO SCH (23:17)
[2018-06-04] MEDS: THIAMINE HCL 100 MG TABLET (FP) PO SCH (23:17)
[2018-06-05] MEDS: chlordiazePOXIDE 5 MG CAPSULE PO SCH ×2 (06:25→10:11)
--- NOTE | 2018-06-05 09:02 | PN ---
BHS Progress Note (SOAP) Subjective: alert,irritable,anxious,interrupted sleep,tremor,pain in the body Objective: 06/05/18 09:01 Vital Signs Temperature 97.9 F 06/05/18 06:43 Pulse Rate 60 06/05/18 06:43 Respiratory Rate 18 06/05/18 06:43 Blood Pressure 139/98 06/05/18 06:43 O2 Sat by Pulse Oximetry (%) Assessment: 06/05/18 09:01 withdrawal symptom Plan: continue detox
[2018-06-05] MEDS: cloNIDine HCL 0.1 MG TABLET PO SCH (10:11)
[2018-06-05] MEDS: METHADONE HCL 5 MG TABLET (FOR DETOX USE ONLY) PO SCH (10:11)
[2018-06-05] MEDS: CITALOPRAM HYDROBROMIDE 10 MG TABLET (FP) PO SCH (10:12)
[2018-06-05] MEDS: NICOTINE 21 MG/24 HOURS TOPICAL PATCH TD SCH (10:12)
[2018-06-05] MEDS: amLODIPine BESYLATE 10 MG TABLET (FP) PO SCH (10:12)
[2018-06-05] MEDS: PRENATAL VITAMINS W/ FOLIC ACID TABLET (FP) PO SCH (10:12)
[2018-06-05 10:55] VITALS: BP 116/69; PULSE 69; TEMP 96.8
--- NOTE | 2018-06-05 13:06 | PN ---
[facility] Progress Note Note: patient did not want to complete treatment,seen by counselor,all attempts ti convince patient to stay with no avail,does not want to wait,signed release ama
--- NOTE | 2018-06-05 13:13 | DS ---
[facility] Detox Discharge Summary Admission Date: 06/02/18 Discharge Date: 06/05/18 - History Present History: Alcohol Dependence, Cannabis Dependence, Opioid Dependence Additional Comments: patient did not want to complete treatment,seen by counselors,all attempts to convince patient to stay with no avail, did not want to wait,signed release ama Pertinent Past History: hypertension nicotine dependence - Physical Exam Results Vital Signs: Vital Signs Temperature 96.8 F L 06/05/18 10:55 Pulse Rate 69 06/05/18 10:55 Respiratory Rate 18 06/05/18 10:55 Blood Pressure 116/69 06/05/18 10:55 O2 Sat by Pulse Oximetry (%) Pertinent Admission Physical Exam Findings: withdrawal symptom Vital Signs Temperature 96.8 F L 06/05/18 10:55 Pulse Rate 69 06/05/18 10:55 Respiratory Rate 18 06/05/18 10:55 Blood Pressure 116/69 06/05/18 10:55 O2 Sat by Pulse Oximetry (%) Laboratory Last Values WBC 6.3 K/mm3 (4.0-10.0) 06/03/18 07:00 RBC 4.54 M/mm3 (4.00-5.60) 06/03/18 07:00 Hgb 12.3 GM/dL (11.7-16.9) 06/03/18 07:00 Hct 38.5 % (35.4-49) 06/03/18 07:00 MCV 84.7 fl (80-96) 06/03/18 07:00 MCH 27.0 pg (25.7-33.7) 06/03/18 07:00 MCHC 31.9 g/dl (32.0-35.9) L 06/03/18 07:00 RDW 15.2 % (11.9-15.9) 06/03/18 07:00 Plt Count 295 K/MM3 (134-434) 06/03/18 07:00 MPV 7.7 fl (7.5-11.1) 06/03/18 07:00 Sodium 140 mmol/L (136-145) 06/03/18 07:00 Potassium 4.2 mmol/L (3.5-5.1) 06/03/18 07:00 Chloride 105 mmol/L (98-107) 06/03/18 07:00 Carbon Dioxide 28 mmol/L (21-32) 06/03/18 07:00 Anion Gap 7 MMOL/L (8-16) L 06/03/18 07:00 BUN 16 mg/dL (7-18) 06/03/18 07:00 Creatinine 1.1 mg/dL (0.55-1.3) 06/03/18 07:00 Creat Clearance w eGFR > 60 (>60) 06/03/18 07:00 Random Glucose 92 mg/dL (74-106) 06/03/18 07:00 Calcium 8.7 mg/dL (8.5-10.1) 06/03/18 07:00 Total Bilirubin 0.3 mg/dL (0.2-1) 06/03/18 07:00 AST 21 U/L (15-37) 06/03/18 07:00 ALT 20 U/L (13-61) 06/03/18 07:00 Alkaline Phosphatase 77 U/L (45-117) 06/03/18 07:00 Total Protein 6.6 g/dl (6.4-8.2) 06/03/18 07:00 Albumin 3.3 g/dl (3.4-5.0) L 06/03/18 07:00 Urine Color [place] 06/03/18 11:00 Urine Appearance Clear 06/03/18 11:00 Urine pH 6.0 (5.0-8.0) 06/03/18 11:00 Ur Specific [place] 1.028 (1.010-1.035) 06/03/18 11:00 Urine Protein 1+ (NEGATIVE) H 06/03/18 11:00 Urine Glucose (UA) 3+ (NEGATIVE) H 06/03/18 11:00 Urine Ketones Trace (NEGATIVE) H 06/03/18 11:00 Urine Blood Negative (NEGATIVE) 06/03/18 11:00 Urine Nitrite Negative (NEGATIVE) 06/03/18 11:00 Urine Bilirubin Negative (<2.0 mg/dL) 06/03/18 11:00 Urine Urobilinogen 2.0 mg/dL (0.2-1.0) 06/03/18 11:00 Ur Leukocyte Esterase Negative (NEGATIVE) 06/03/18 11:00 Urine WBC (Auto) 1 /hpf (3-5) 06/03/18 11:00 Urine RBC (Auto) 5 /hpf (0-3) 06/03/18 11:00 Ur Epithelial Cells Rare /HPF (FEW) 06/03/18 11:00 Urine Mucus Rare 06/03/18 11:00 RPR Titer Nonreactive (NONREACTIVE) 06/03/18 07:00 HIV 1&2 Antibody Screen Negative 06/03/18 07:00 HIV P24 Antigen Negative 06/03/18 07:00 - Medication Discharge Medications: Ambulatory Orders Clonidine HCl [Catapres] 0.1 mg PO DAILY 09/10/17 Amlodipine Besylate [Norvasc -] 10 mg PO DAILY #30 tablet 10/01/17 Buspirone HCl [Buspar -] 10 mg PO BID 02/26/18 Citalopram Hydrobromide [Citalopram HBr] 10 mg PO AM 02/26/18 - Diagnosis (1) Opioid dependence with withdrawal Current Visit: Yes Status: Acute (2) Alcohol dependence with uncomplicated withdrawal Current Visit: Yes Status: Acute (3) Cannabis dependence Current Visit: Yes Status: Chronic (4) Hypertension Current Visit: Yes Status: Chronic Qualifiers: Hypertension type: essential hypertension Qualified Code(s): I10 - Essential (primary) hypertension (5) Nicotine dependence Current Visit: Yes Status: Chronic Qualifiers: Nicotine product type: cigarettes Substance use status: uncomplicated Qualified Code(s): F17.210 - Nicotine dependence, cigarettes, uncomplicated (6) Weight loss Current Visit: No Status: Acute - AMA Did Patient Leave Against Medical Advice: Yes
[2018-06-05] MEDS ORDERED: chlordiazePOXIDE HCL 10 MG CAPSULE PO SCH (23:00)
[2018-06-06] MEDS ORDERED: METHADONE HCL 10 MG TABLET (FOR DETOX USE ONLY) PO SCH (10:00)
[2018-06-07] MEDS ORDERED: METHADONE HCL 5 MG TABLET (FOR DETOX USE ONLY) PO SCH (06:00)
== END 2018-06-05 13:04 | disposition left against medical advice (07) | DRG 770 ==
LOC: YASAS 15:02 → Y6N 23:18
PROC: HZ2ZZZZ Detoxification Services for Substance Abuse Treatment (ICD-10-PCS; principal; 2018-06-02)
DX: F11.23 Opioid dependence with withdrawal (principal); F10.230 Alcohol dependence with withdrawal, uncomplicated; F12.20 Cannabis dependence, uncomplicated; F17.210 Nicotine dependence, cigarettes, uncomplicated; F19.282 Other psychoactive substance dependence with psychoactive substance-induced sleep disorder; F19.24 Other psychoactive substance dependence with psychoactive substance-induced mood disorder; R63.4 Abnormal weight loss; Z68.25 Body mass index [BMI] 25.0-25.9, adult; Z88.0 Allergy status to penicillin; Z91.013 Allergy to seafood; Z91.14 Patient's other noncompliance with medication regimen; Z59.0 Homelessness
CPT/HCPCS: 36415; 80053; 81003; 81015; 85027; 86593; 87389; J0735

== ENCOUNTER 2018-08-09 11:15 | Inpatient (IN) | payer OTHER ==
[2018-08-09 12:30] VITALS: BMI 24.3
--- NOTE | 2018-08-09 14:09 | HP ---
COWS - Scale Resting Pulse: 1= [place] 81-100 Sweatin=Flushed/Facial Moisture Restless Observation: 1= Difficult to Sit Still Pupil Size: 0= Normal to Room Light Bone or Joint Aches: 2= Severe Diffuse Aches Runny Nose/ Eye Tearin= Runny Nose/Eyes GI Upset > 30mins: 1= Stomach Cramp Tremor Observation: 2= Slight Tremor Visible Yawning Observation: 2= >3x During Session Anxiety or Irritability: 2=Irritable/Anxious Goose Flesh Skin: 0=Smooth Skin COWS Score: 15 CIWA Score Nausea/Vomitin-Mild Nausea/No Vomiting Muscle Tremors: 3 Anxiety: 3 Agitation: 3 Paroxysmal Sweats: 3 Orientation: 0-Oriented Tacttile Disturbances: 0-None Auditory Disturbances: 0-None Visual Disturbances: 0-None Headache: 0-None Present CIWA-Ar Total Score: 13 - Admission Criteria OASAS Guidelines: Admission for Medically Managed Detox: Requires at least one of the followin. CIWA greater than 12 2. Seizures within the past 24 hours 3. Delirium tremens within the past 24 hours 4. Hallucinations within the past 24 hours 5. Acute intervention needed for co occurring medical disorder 6. Acute intervention needed for co occurring psychiatric disorder 7. Severe withdrawal that cannot be handled at a lower level of care (continued vomiting, continued diarrhea, abnormal vital signs) requiring intravenous medication and/or fluids 8. Admission ROS BHS - HPI Chief Complaint: I need to stop this and get my life back. Allergies/Adverse Reactions: Allergies Allergy/AdvReac Type Severity Reaction Status Date / Time Penicillins Allergy Severe Difficulty Verified 06/02/18 17:16 Breathing shellfish derived Allergy Severe Rash Verified 06/02/18 17:16 turkey Allergy Severe Rash Verified 06/02/18 17:16 History of Present Illness: pt is a 53yr old male with a long h/o alcohol and heroin dependence seeking detox for treatment. ISTOP done and it show a recent Rx written for oxycodone hcl 30mg by Dr. Audi Dobbs however, pt states he has a recent police report investigation for identity theft and he has no idea about the oxycodone nor the doctor mentioned. Pt was told that provider will try to get in contact of Dr. Dobbs for a confirmation the mentioned issue. Pt in agreement. Exam Limitations: No Limitations - Ebola screening Have you traveled outside of the country in the last 21 days: No Have you had contact with anyone from an Ebola affected area: No Have you been sick,other than usual withdrawal symptoms: No Do you have a fever: No - Review of Systems Constitutional: Chills, Diaphoresis, Night Sweats, Changes in sleep EENT: reports: Nose Congestion Respiratory: reports: Cough Cardiac: reports: No Symptoms Reported, Syncope GI: reports: Nausea, Poor Appetite, Poor Fluid Intake : reports: No Symptoms Reported Musculoskeletal: reports: Back Pain, Joint Pain, Muscle Pain Integumentary: reports: Flushing, Sweating Neuro: reports: Headache, Tingling, Tremors Endocrine: reports: Excessive Sweating, Flushing, Intolerance to Cold, Intolerance to Heat Hematology: reports: No Symptoms Reported Psychiatric: reports: Judgement Intact, Mood/Affect Appropiate, Orientated x3, Agitated, Anxious Other Systems: Reviewed and Negative Patient History - Patient Medical History Hx Anemia: No Hx Asthma: Yes (albuterol) Hx Chronic Obstructive Pulmonary Disease (COPD): No Hx Cancer: No Hx Cardiac Disorders: No Hx Congestive Heart Failure: No Hx Hypertension: Yes (NON COMPLAINT WITH MEDS) Hx Hypercholesterolemia: No Hx Pacemaker: No HX Cerebrovascular Accident: No Hx Seizures: No Hx Dementia: No Hx Diabetes: No Hx Gastrointestinal Disorders: No Hx Liver Disease: No Hx Genitourinary Disorders: No Hx Sexually Transmitted Disorders: No Hx Renal Disease (ESRD): No Hx Thyroid Disease: No Hx Human Immunodeficiency Virus (HIV): No (pt denies) Hx Hepatitis C: No (pt denies) Hx Depression: No Hx Suicide Attempt: No (pt denies) Hx Bipolar Disorder: No Hx Schizophrenia: No - Patient Surgical History Past Surgical History: No Hx Neurologic Surgery: No Hx Cataract Extraction: No Hx Cardiac Surgery: No Hx Lung Surgery: No Hx Breast Surgery: No Hx Breast Biopsy: No Hx Abdominal Surgery: No Hx Appendectomy: No Hx Cholecystectomy: No Hx Genitourinary Surgery: No Hx Section: No Hx Orthopedic Surgery: No Anesthesia Reaction: No - PPD History Previous Implant?: Yes Documented Results: Negative w/proof Date: 03/29/18 Results: 0 mm PPD to be Administered?: No - Reproductive History Patient is a Female of Child Bearing Age (11 -55 yrs old): No - Smoking Cessation Smoking history: Current every day smoker Have you smoked in the past 12 months: Yes Aproximately how many cigarettes per day: 20 Cigars Per Day: 0 Hx Chewing Tobacco Use: No Initiated information on smoking cessation: Yes 'Breaking Loose' booklet given: 08/09/18 - Substance & Tx. History Hx Alcohol Use: Yes Hx Substance Use: Yes Substance Use Type: Alcohol, Heroin Hx Substance Use Treatment: Yes (last detox 06/2018) - Substances Abused Alcohol Route: Inhalation Frequency: Daily Amount used: 1-2pints vodka Age of first use: 15 Date of Last Use: 08/09/18 Heroin Route: Inhalation Frequency: Daily Amount used: 5-10 bags Age of first use: 26 Date of Last Use: 08/09/18 Family Disease History - Family Disease History Family Disease History: Heart Disease: Mother (), CA: Father (, ALCOHOLIC), Other: Father, Mother Admission Physical Exam BHS - Vital Signs Vital Signs: Vital Signs - 24 hr 08/09/18 12:29 Temperature 96.8 F L Pulse Rate 18 L Respiratory 18 Rate Blood Pressure 135/93 - Physical General Appearance: Yes: Appropriately Dressed, Moderate Distress, Tremorous, Irritable, Sweating, Anxious HEENTM: Yes: Normal Voice, Nasal Congestion, Rhinorrhea Respiratory: Yes: Lungs Clear, Normal Breath Sounds, Decreased Breath Sounds Neck: Yes: No masses,lesions,Nodules Breast: Yes: Within Normal Limits Cardiology: Yes: Regular Rhythm, Regular Rate, S1, S2, Tachycardia Abdominal: Yes: Normal Bowel Sounds, Non Tender, Soft Genitourinary: Yes: Within Normal Limits Back: Yes: Normal Inspection Musculoskeletal: Yes: Within Normal Limits, Back pain, Muscle Pain Extremities: Yes: Normal Capillary Refill, Normal Inspection, Non-Tender, Tremors Neurological: Yes: Fully Oriented, Alert, Normal Response Integumentary: Yes: Normal Color, Diaphoresis Lymphatic: Yes: Within Normal Limits - Diagnostic (1) Alcohol dependence with uncomplicated withdrawal Current Visit: Yes Status: Chronic (2) Drug-induced mood disorder Current Visit: No Status: Acute (3) Hyperkalemia Current Visit: No Status: Acute (4) Insomnia Current Visit: Yes Status: Chronic Qualifiers: Insomnia type: unspecified Qualified Code(s): G47.00 - Insomnia, unspecified (5) Opioid dependence with withdrawal Current Visit: Yes Status: Chronic (6) Weight loss Current Visit: Yes Status: Chronic (7) COPD (chronic obstructive pulmonary disease) Current Visit: Yes Status: Chronic Qualifiers: Emphysema type: unspecified (8) Hypertension Current Visit: No Status: Chronic Qualifiers: Hypertension type: essential hypertension Qualified Code(s): I10 - Essential (primary) hypertension (9) Nicotine dependence Current Visit: Yes Status: Chronic Qualifiers: Nicotine product type: cigarettes Substance use status: uncomplicated Qualified Code(s): F17.210 - Nicotine dependence, cigarettes, uncomplicated (10) Non compliance w medication regimen Current Visit: No Status: Chronic Cleared for Admission BHS - Detox or Rehab S Level of Care: Medically Managed Detox Regimen/Protocol: Methadone/Librium BHS Breath Alcohol Content Breath Alcohol Content: 0.059 Urine Drug Screen - Results Drug Screen Negative: No Urine Drug Screen Results: THC-Marijuana, OPI-Opiates, BZO-Benzodiazepines, MTD- Methadone, FEN-Fentanyl Inpatient Rehab Admission - Rehab Decision to Admit Inpatient rehab admission?: No
[2018-08-09] MEDS ORDERED: chlordiazePOXIDE HCL 10 MG CAPSULE PO PRN (14:29)
[2018-08-09] MEDS ORDERED: MAGNESIUM CITRATE 300 ML BOTTLE PO PRN (14:29)
[2018-08-09] MEDS ORDERED: ONDANSETRON *ODT* 4 MG TABLET SL PRN (14:29)
[2018-08-09] MEDS ORDERED: ACETAMINOPHEN 325 MG TABLET (FP) PO PRN (14:29)
[2018-08-09] MEDS ORDERED: hydrOXYzine PAMOATE 25 MG CAPSULE (FP) PO PRN (14:29)
[2018-08-09] MEDS ORDERED: NICOTINE POLACRILEX 4 MG GUM BUC PRN (14:29)
[2018-08-09] MEDS ORDERED: P-EPHED 60MG/TRIPROLIDI 2.5MG TABLET PO PRN (14:29)
[2018-08-09] MEDS ORDERED: cloNIDine HCL 0.1 MG TABLET PO PRN (14:29)
[2018-08-09] MEDS ORDERED: MAGNESIUM HYDROX 2400MG/30ML ORAL SUSPENSION 30 ML CUP PO PRN (14:29)
[2018-08-09] MEDS ORDERED: MENTHOL/PHENOL 1 EACH UD MM PRN (14:29)
[2018-08-09] MEDS ORDERED: METHOCARBAMOL 500 MG TABLET PO PRN (14:29)
[2018-08-09] MEDS ORDERED: MAG HYDROX/AL HYDROX/SIMETH 30 ML UNIT-DOSE CUP PO PRN (14:29)
[2018-08-09] MEDS ORDERED: IBUPROFEN 400 MG TABLET (FP) PO PRN (14:29)
[2018-08-09] MEDS ORDERED: BISMUTH SUBSALICYLATE 524 MG/30 ML UD PO PRN (14:29)
[2018-08-09] MEDS ORDERED: chlordiazePOXIDE HCL 25 MG CAPSULE PO ONE (17:30)
[2018-08-09] MEDS: chlordiazePOXIDE HCL 25 MG CAPSULE PO SCH (22:16)
[2018-08-09] MEDS: MELATONIN 5 MG TABLETS PO PRN (22:17)
[2018-08-09] MEDS: THIAMINE HCL 100 MG TABLET (FP) PO SCH (22:18)
[2018-08-09] MEDS ORDERED: METHADONE HCL 10 MG TABLET (FOR DETOX USE ONLY) PO ONE (23:00)
[2018-08-10] MEDS: chlordiazePOXIDE HCL 25 MG CAPSULE PO SCH ×2 (06:29→13:59)
[2018-08-10] MEDS ORDERED: METHADONE HCL 5 MG TABLET (FOR DETOX USE ONLY) PO ONE (10:00)
[2018-08-10] MEDS: PRENATAL VITAMINS W/ FOLIC ACID TABLET (FP) PO SCH (10:05)
[2018-08-10] MEDS: NICOTINE 21 MG/24 HOURS TOPICAL PATCH TD SCH (10:06)
[2018-08-10 10:21] LABS: HEMATOCRIT 35.7 % (35.4-49); HEMOGLOBIN 12.1 GM/dL (11.7-16.9); MCH 29.1 pg (25.7-33.7); MCHC 33.9 g/dl (32.0-35.9); MEAN CELL VOLUME 85.9 fl (80-96); MEAN PLT VOLUME 8.4 fl (7.5-11.1); PLATELET COUNT 302 K/MM3 (134-434); RBC 4.16 M/mm3 (4.00-5.60); RDW 16.7 % (11.9-15.9); WHITE BLOOD COUNT 8.4 K/mm3 (4.0-10.0)
[2018-08-10 10:30] LABS: ALBUMIN 4.2 g/dl (3.4-5.0); ALK PHOS 87 U/L (45-117); ANION GAP 8 MMOL/L (8-16); BILIRUBIN,TOTAL 0.5 mg/dL (0.2-1); BLOOD UREA NITROGEN 25 mg/dL (7-18); CALCIUM 9.3 mg/dL (8.5-10.1); CHLORIDE 100 mmol/L (98-107); CO2 26 mmol/L (21-32); CREATININE 1.9 mg/dL (0.55-1.3); GLUCOSE,RANDOM 70 mg/dL (74-106); POTASSIUM 3.9 mmol/L (3.5-5.1); SGOT/AST 31 U/L (15-37); SGPT/ALT 29 U/L (13-61); SODIUM 133 mmol/L (136-145); TOT PROT 7.6 g/dl (6.4-8.2)
--- NOTE | 2018-08-10 15:13 | PN ---
[facility] CIWA - CIWA Score Nausea/Vomitin-Mild Nausea/No Vomiting Muscle Tremors: 2 Anxiety: 2 Agitation: 2 Paroxysmal Sweats: 1-Minimal Palms Moist Orientation: 1-Uncertain about Date Tacttile Disturbances: 0-None Auditory Disturbances: 0-None Visual Disturbances: 0-None Headache: 1-Very Mild CIWA-Ar Total Score: 10 BHS COWS - Scale Resting Pulse: 0= [place] 80 or Below Sweatin= Beads of Sweat on Face Restless Observation: 1= Difficult to Sit Still Pupil Size: 0= Normal to Room Light Bone or Joint Aches: 1= Mild Discomfort Runny Nose/ Eye Tearin= Nasal Congestion GI Upset > 30mins: 1= Stomach Cramp Tremor Observation of Outstretched Hands: 1= Tremor [place], Not Seen Yawning Observation: 1= 1-2x During Session Anxiety or Irritability: 1=Feels Anxious/Irritable Goose Flesh Skin: 0=Smooth Skin COWS Score: 10 [facility] Progress Note (SOAP) Subjective: body aches tremor irritable restlessness anxiety sweating Objective: 08/10/18 15:16 Vital Signs Temperature 98.8 F 08/10/18 13:38 Pulse Rate 71 08/10/18 13:38 Respiratory Rate 18 08/10/18 13:38 Blood Pressure 152/99 08/10/18 13:38 O2 Sat by Pulse Oximetry (%) Laboratory Last Values WBC 8.4 K/mm3 (4.0-10.0) 08/10/18 06:00 RBC 4.16 M/mm3 (4.00-5.60) 08/10/18 06:00 Hgb 12.1 GM/dL (11.7-16.9) 08/10/18 06:00 Hct 35.7 % (35.4-49) 08/10/18 06:00 MCV 85.9 fl (80-96) 08/10/18 06:00 MCH 29.1 pg (25.7-33.7) 08/10/18 06:00 MCHC 33.9 g/dl (32.0-35.9) 08/10/18 06:00 RDW 16.7 % (11.9-15.9) H 08/10/18 06:00 Plt Count 302 K/MM3 (134-434) 08/10/18 06:00 MPV 8.4 fl (7.5-11.1) 08/10/18 06:00 Sodium 133 mmol/L (136-145) L 08/10/18 06:00 Potassium 3.9 mmol/L (3.5-5.1) 08/10/18 06:00 Chloride 100 mmol/L (98-107) 08/10/18 06:00 Carbon Dioxide 26 mmol/L (21-32) 08/10/18 06:00 Anion Gap 8 MMOL/L (8-16) 08/10/18 06:00 BUN 25 mg/dL (7-18) H 08/10/18 06:00 Creatinine 1.9 mg/dL (0.55-1.3) H 08/10/18 06:00 Creat Clearance w eGFR 36.99 (>60) 08/10/18 06:00 Random Glucose 70 mg/dL (74-106) L 08/10/18 06:00 Calcium 9.3 mg/dL (8.5-10.1) 08/10/18 06:00 Total Bilirubin 0.5 mg/dL (0.2-1) 08/10/18 06:00 AST 31 U/L (15-37) 08/10/18 06:00 ALT 29 U/L (13-61) 08/10/18 06:00 Alkaline Phosphatase 87 U/L (45-117) 08/10/18 06:00 Total Protein 7.6 g/dl (6.4-8.2) 08/10/18 06:00 Albumin 4.2 g/dl (3.4-5.0) 08/10/18 06:00 lab noted Assessment: 08/10/18 15:31 withdrawal sx Plan: continue detox
[2018-08-10] MEDS ORDERED: amLODIPine BESYLATE 10 MG TABLET (FP) PO SCH (15:30)
[2018-08-10] MEDS: amLODIPine BESYLATE 10 MG TABLET (FP) PO SCH (15:45)
[2018-08-10] MEDS: chlordiazePOXIDE 5 MG CAPSULE PO SCH (22:05)
[2018-08-10] MEDS: THIAMINE HCL 100 MG TABLET (FP) PO SCH (22:05)
[2018-08-10] MEDS: MELATONIN 5 MG TABLETS PO PRN (22:08)
[2018-08-11] MEDS: chlordiazePOXIDE 5 MG CAPSULE PO SCH ×2 (06:54→15:14)
[2018-08-11] MEDS ORDERED: METHADONE HCL 10 MG TABLET (FOR DETOX USE ONLY) PO ONE (10:00)
[2018-08-11] MEDS: PRENATAL VITAMINS W/ FOLIC ACID TABLET (FP) PO SCH (10:57)
[2018-08-11] MEDS: amLODIPine BESYLATE 10 MG TABLET (FP) PO SCH (10:57)
[2018-08-11] MEDS: NICOTINE 21 MG/24 HOURS TOPICAL PATCH TD SCH (10:57)
[2018-08-11 13:41] VITALS: BP 173/105; PULSE 71; TEMP 98.7
--- NOTE | 2018-08-11 14:58 | PN ---
[facility] CIWA - CIWA Score Nausea/Vomitin-No Nausea/No Vomiting Muscle Tremors: 1-None Visible, but [place] Anxiety: 1-Mildly Anxious Agitation: 1-Slight > Activity Paroxysmal Sweats: 1-Minimal Palms Moist Orientation: 1-Uncertain about Date Tacttile Disturbances: 0-None Auditory Disturbances: 0-None Visual Disturbances: 0-None Headache: 1-Very Mild CIWA-Ar Total Score: 6 BHS COWS - Scale Resting Pulse: 0= [place] 80 or Below Sweatin= Chills/Flushing Restless Observation: 0= Sits Still Pupil Size: 0= Normal to Room Light Bone or Joint Aches: 1= Mild Discomfort Runny Nose/ Eye Tearin= Nasal Congestion GI Upset > 30mins: 1= Stomach Cramp Tremor Observation of Outstretched Hands: 1= Tremor [place], Not Seen Yawning Observation: 0= None Anxiety or Irritability: 1=Feels Anxious/Irritable Goose Flesh Skin: 0=Smooth Skin COWS Score: 6 S Progress Note (SOAP) Subjective: feeling better less sweating mild tremor little body aches Objective: 08/11/18 15:04 Vital Signs Temperature 98.7 F 08/11/18 13:40 Pulse Rate 71 08/11/18 13:40 Respiratory Rate 18 08/11/18 13:40 Blood Pressure 173/105 H 08/11/18 13:40 O2 Sat by Pulse Oximetry (%) Laboratory Last Values WBC 8.4 K/mm3 (4.0-10.0) 08/10/18 06:00 RBC 4.16 M/mm3 (4.00-5.60) 08/10/18 06:00 Hgb 12.1 GM/dL (11.7-16.9) 08/10/18 06:00 Hct 35.7 % (35.4-49) 08/10/18 06:00 MCV 85.9 fl (80-96) 08/10/18 06:00 MCH 29.1 pg (25.7-33.7) 08/10/18 06:00 MCHC 33.9 g/dl (32.0-35.9) 08/10/18 06:00 RDW 16.7 % (11.9-15.9) H 08/10/18 06:00 Plt Count 302 K/MM3 (134-434) 08/10/18 06:00 MPV 8.4 fl (7.5-11.1) 08/10/18 06:00 Sodium 133 mmol/L (136-145) L 08/10/18 06:00 Potassium 3.9 mmol/L (3.5-5.1) 08/10/18 06:00 Chloride 100 mmol/L (98-107) 08/10/18 06:00 Carbon Dioxide 26 mmol/L (21-32) 08/10/18 06:00 Anion Gap 8 MMOL/L (8-16) 08/10/18 06:00 BUN 25 mg/dL (7-18) H 08/10/18 06:00 Creatinine 1.9 mg/dL (0.55-1.3) H 08/10/18 06:00 Creat Clearance w eGFR 36.99 (>60) 08/10/18 06:00 Random Glucose 70 mg/dL (74-106) L 08/10/18 06:00 Calcium 9.3 mg/dL (8.5-10.1) 08/10/18 06:00 Total Bilirubin 0.5 mg/dL (0.2-1) 08/10/18 06:00 AST 31 U/L (15-37) 08/10/18 06:00 ALT 29 U/L (13-61) 08/10/18 06:00 Alkaline Phosphatase 87 U/L (45-117) 08/10/18 06:00 Total Protein 7.6 g/dl (6.4-8.2) 08/10/18 06:00 Albumin 4.2 g/dl (3.4-5.0) 08/10/18 06:00 RPR Titer Nonreactive (NONREACTIVE) 08/10/18 06:00 lab noted renal insufficient 08/11/18 15:06 bring in lab report to primary care provider Assessment: 08/11/18 15:06 mild withdrawal sx Plan: continue detox
--- NOTE | 2018-08-11 15:51 | DS ---
[facility] Detox Discharge Summary Admission Date: 08/09/18 Discharge Date: 08/11/18 - History Present History: Alcohol Dependence, Opioid Dependence Additional Comments: 53 years old male admitted on 08/09/18 for alcohol and opiate withdrawal stabilization feeling better today preferring rehab today [facility] - Physical Exam Results Vital Signs: Vital Signs Temperature 98.7 F 08/11/18 13:40 Pulse Rate 71 08/11/18 13:40 Respiratory Rate 18 08/11/18 13:40 Blood Pressure 173/105 H 08/11/18 13:40 O2 Sat by Pulse Oximetry (%) Pertinent Admission Physical Exam Findings: alcohol and opiate withdrawal sx Laboratory Last Values WBC 8.4 K/mm3 (4.0-10.0) 08/10/18 06:00 RBC 4.16 M/mm3 (4.00-5.60) 08/10/18 06:00 Hgb 12.1 GM/dL (11.7-16.9) 08/10/18 06:00 Hct 35.7 % (35.4-49) 08/10/18 06:00 MCV 85.9 fl (80-96) 08/10/18 06:00 MCH 29.1 pg (25.7-33.7) 08/10/18 06:00 MCHC 33.9 g/dl (32.0-35.9) 08/10/18 06:00 RDW 16.7 % (11.9-15.9) H 08/10/18 06:00 Plt Count 302 K/MM3 (134-434) 08/10/18 06:00 MPV 8.4 fl (7.5-11.1) 08/10/18 06:00 Sodium 133 mmol/L (136-145) L 08/10/18 06:00 Potassium 3.9 mmol/L (3.5-5.1) 08/10/18 06:00 Chloride 100 mmol/L (98-107) 08/10/18 06:00 Carbon Dioxide 26 mmol/L (21-32) 08/10/18 06:00 Anion Gap 8 MMOL/L (8-16) 08/10/18 06:00 BUN 25 mg/dL (7-18) H 08/10/18 06:00 Creatinine 1.9 mg/dL (0.55-1.3) H 08/10/18 06:00 Creat Clearance w eGFR 36.99 (>60) 08/10/18 06:00 Random Glucose 70 mg/dL (74-106) L 08/10/18 06:00 Calcium 9.3 mg/dL (8.5-10.1) 08/10/18 06:00 Total Bilirubin 0.5 mg/dL (0.2-1) 08/10/18 06:00 AST 31 U/L (15-37) 08/10/18 06:00 ALT 29 U/L (13-61) 08/10/18 06:00 Alkaline Phosphatase 87 U/L (45-117) 08/10/18 06:00 Total Protein 7.6 g/dl (6.4-8.2) 08/10/18 06:00 Albumin 4.2 g/dl (3.4-5.0) 08/10/18 06:00 RPR Titer Nonreactive (NONREACTIVE) 08/10/18 06:00 lab noted - Treatment Hospital Course: Detox Protocol Followed, Detoxed Safely, Responded well, Discharged Condition Good, Rehab Referral Accepted Patient has Accepted a [facility] Referral to: [facility] - Medication Discharge Medications: Ambulatory Orders Amlodipine Besylate [Norvasc -] 10 mg PO DAILY #14 tablet 08/11/18 Budesonide/Formeterol Fumarate [SYMBICORT 160/4.5mcg -] 1 inh PO BID #1 inhaler 08/11/18 - Diagnosis (1) Alcohol dependence with uncomplicated withdrawal Current Visit: Yes Status: Acute (2) COPD (chronic obstructive pulmonary disease) Current Visit: Yes Status: Chronic Qualifiers: COPD type: emphysema Emphysema type: unspecified Qualified Code(s): J43.9 - Emphysema, unspecified (3) Nicotine dependence Current Visit: Yes Status: Acute Qualifiers: Nicotine product type: cigarettes Substance use status: in withdrawal Qualified Code(s): F17.213 - Nicotine dependence, cigarettes, with withdrawal (4) Weight loss Current Visit: Yes Status: Acute (5) Hypertension Current Visit: Yes Status: Chronic Qualifiers: Hypertension type: essential hypertension Qualified Code(s): I10 - Essential (primary) hypertension - AMA Did Patient Leave Against Medical Advice: No
[2018-08-11] MEDS ORDERED: chlordiazePOXIDE HCL 10 MG CAPSULE PO SCH (22:00)
[2018-08-12] MEDS ORDERED: METHADONE HCL 5 MG TABLET (FOR DETOX USE ONLY) PO ONE (06:00)
== END 2018-08-11 15:32 | disposition home or self-care (01) | DRG 773 ==
LOC: YASAS 11:15 → Y3N 17:02
PROVIDERS: ADMIT Surgery; ATTEND Surgery
PROC: HZ2ZZZZ Detoxification Services for Substance Abuse Treatment (ICD-10-PCS; principal; 2018-08-09)
DX: F11.23 Opioid dependence with withdrawal (principal); F10.230 Alcohol dependence with withdrawal, uncomplicated; F17.213 Nicotine dependence, cigarettes, with withdrawal; F19.24 Other psychoactive substance dependence with psychoactive substance-induced mood disorder; I10 Essential (primary) hypertension; J43.9 Emphysema, unspecified; R00.0 Tachycardia, unspecified; G47.00 Insomnia, unspecified; Z88.0 Allergy status to penicillin; Z91.013 Allergy to seafood; Z91.14 Patient's other noncompliance with medication regimen
CPT/HCPCS: 36415; 80053; 85027; 86593; J0735

== ENCOUNTER 2018-09-14 15:45 | Inpatient (IN) | payer OTHER ==
[2018-09-14 21:15] VITALS: BMI 24.3
--- NOTE | 2018-09-14 21:29 | HP ---
CIWA Score Nausea/Vomitin Muscle Tremors: None Anxiety: 4-Mod. Anxious/Guarded Agitation: 4-Moderately Restless Paroxysmal Sweats: No Perspiration Orientation: 1-Uncertain about Date Tacttile Disturbances: 0-None Auditory Disturbances: 0-None Visual Disturbances: 0-None Headache: 2-Mild CIWA-Ar Total Score: 13 - Admission Criteria OASAS Guidelines: Admission for Medically Managed Detox: Requires at least one of the followin. CIWA greater than 12 2. Seizures within the past 24 hours 3. Delirium tremens within the past 24 hours 4. Hallucinations within the past 24 hours 5. Acute intervention needed for co occurring medical disorder 6. Acute intervention needed for co occurring psychiatric disorder 7. Severe withdrawal that cannot be handled at a lower level of care (continued vomiting, continued diarrhea, abnormal vital signs) requiring intravenous medication and/or fluids 8. Patient presents the following: CIWA greater than 12 Admission Criteria Met: Admission criteria met Admission ROS [facility] Chief Complaint: C/O WITHDRAWAL SX'S. SEEKING DETOX TXMENT Allergies/Adverse Reactions: Allergies Allergy/AdvReac Type Severity Reaction Status Date / Time Penicillins Allergy Severe Difficulty Verified 09/14/18 21:08 Breathing shellfish derived Allergy Severe Rash Verified 09/14/18 21:08 turkey Allergy Severe Rash Verified 09/14/18 21:08 History of Present Illness: 53 Y.O. MALE WITH HX/O ALCOHOLISM AND OPIOID DEPENDENCE HERE FOR DETOX. CLIENT PRESENT WITH C/O WITHDRAWAL SX'S. CIWA 13. HE IS CURRENTLY ON METHADONE 50MG DAILY. STATES HE WAS NOT MEDICATED TODAY. HIS MMTP PROGRAM IS AT START. LAST HERE 07/2018. REPORTS RELAPSING AFTER DC. REPORTS LONGEST CLEAN TIME 22 YEARS. RELAPSING IN 2002. DENIES SI/HI/AVH/SEIZURE D/O, DRUG OVERDOSE. UNDOMICILED, DENIES LEGALS, UNEMPLOYED Exam Limitations: No Limitations - Ebola screening Have you traveled outside of the country in the last 21 days: No (N) Have you had contact with anyone from an Ebola affected area: No Do you have a fever: No - Review of Systems Constitutional: Chills, Loss of Appetite, Malaise, Night Sweats, Changes in sleep, Unintentional Wgt. Loss EENT: reports: Dental Problems (MISSING TEETH) Respiratory: reports: No Symptoms reported Cardiac: reports: No Symptoms Reported GI: reports: Nausea, Poor Appetite, Poor Fluid Intake, Vomiting : reports: No Symptoms Reported Musculoskeletal: reports: Back Pain, Other (LEG CRAMPS) Integumentary: reports: Dryness Neuro: reports: Headache Endocrine: reports: No Symptoms Reported Hematology: reports: No Symptoms Reported Psychiatric: reports: Orientated x3, Agitated (IRRITABLE), Anxious, Depressed Other Systems: Reviewed and Negative Patient History - Patient Medical History Hx Anemia: No Hx Asthma: Yes Hx Chronic Obstructive Pulmonary Disease (COPD): No Hx Cancer: No Hx Cardiac Disorders: No Hx Congestive Heart Failure: No Hx Hypertension: Yes Hx Hypercholesterolemia: No Hx Pacemaker: No HX Cerebrovascular Accident: No Hx Seizures: No Hx Dementia: No Hx Diabetes: No Hx Gastrointestinal Disorders: No Hx Liver Disease: No Hx Genitourinary Disorders: No Hx Sexually Transmitted Disorders: No Hx Renal Disease (ESRD): No Hx Thyroid Disease: No Hx Human Immunodeficiency Virus (HIV): No Hx Hepatitis C: No Hx Depression: No Hx Suicide Attempt: No Hx Bipolar Disorder: No Hx Schizophrenia: No Other Medical History: PTSD - Patient Surgical History Past Surgical History: No Hx Neurologic Surgery: No Hx Cataract Extraction: No Hx Cardiac Surgery: No Hx Lung Surgery: No Hx Breast Surgery: No Hx Breast Biopsy: No Hx Abdominal Surgery: No Hx Appendectomy: No Hx Cholecystectomy: No Hx Genitourinary Surgery: No Hx Section: No Hx Orthopedic Surgery: No Anesthesia Reaction: No - PPD History Previous Implant?: Yes Documented Results: Negative w/proof Implanted On Prior [facility] Admission?: Yes Date: 03/29/18 Results: 0 mm PPD to be Administered?: No - Smoking Cessation Smoking history: Current every day smoker Have you smoked in the past 12 months: Yes Aproximately how many cigarettes per day: 20 Cigars Per Day: 0 Hx Chewing Tobacco Use: No Initiated information on smoking cessation: Yes 'Breaking Loose' booklet given: 09/14/18 - Substance & Tx. History Hx Alcohol Use: Yes Hx Substance Use: Yes Substance Use Type: Alcohol, Heroin, Prescribed (METHADONE 50 MG DAILY) Hx Substance Use Treatment: Yes ([facility]) - Substances abused Heroin Substance route: Inhalation Frequency: Daily Amount used: 8 BAGS Age of first use: 44 Date of last use: 09/14/18 Alcohol Other (specify): VODKA Substance route: Oral Frequency: Daily Amount used: 2 PINTS Age of first use: 11 Date of last use: 09/14/18 Family Disease History - Family Disease History Family Disease History: Heart Disease: Mother (), CA: Father (, ALCOHOLIC), Other: Father, Mother Admission Physical Exam [facility] - Vital Signs Vital Signs: Vital Signs - 24 hr 09/14/18 21:08 Temperature 98.2 F Pulse Rate 82 Respiratory 18 Rate Blood Pressure 156/99 - Physical General Appearance: Yes: Appropriately Dressed, Irritable, Anxious HEENTM: Yes: EOMI, Normocephalic, Normal Voice, BRIAN, Pharynx Normal, Other ( POOR DENTITION/MISSING TEETH) Respiratory: Yes: Chest Non-Tender, Lungs Clear, Normal Breath Sounds, No Respiratory Distress, No Accessory Muscle Use Neck: Yes: No masses,lesions,Nodules, Supple, Trachea in good position Breast: Yes: Breast Exam Deferred Cardiology: Yes: Regular Rhythm, Regular Rate, S1, S2 Abdominal: Yes: Normal Bowel Sounds, Non Tender, Soft Genitourinary: Yes: Within Normal Limits Back: Yes: Normal Inspection Musculoskeletal: Yes: full range of Motion, Gait Steady Extremities: Yes: Normal Range of Motion, Non-Tender Neurological: Yes: Fully Oriented, Alert, Motor Strength 5/5, Depressed Affect Integumentary: Yes: Dry, Warm Lymphatic: Yes: Within Normal Limits - Diagnostic (1) Methadone maintenance therapy patient Current Visit: Yes Status: Chronic (2) At risk for dehydration due to poor fluid intake Current Visit: Yes Status: Acute (3) Alcohol dependence with uncomplicated withdrawal Current Visit: Yes Status: Acute (4) Nicotine dependence Current Visit: Yes Status: Chronic Qualifiers: Nicotine product type: cigarettes Substance use status: in withdrawal Qualified Code(s): F17.213 - Nicotine dependence, cigarettes, with withdrawal (5) Hypertension Current Visit: Yes Status: Chronic Qualifiers: Hypertension type: essential hypertension Qualified Code(s): I10 - Essential (primary) hypertension (6) Insomnia Current Visit: Yes Status: Chronic Qualifiers: Insomnia type: unspecified Qualified Code(s): G47.00 - Insomnia, unspecified (7) Non compliance w medication regimen Current Visit: Yes Status: Chronic Cleared for Admission [facility] - Detox or Rehab [facility] Level of Care: Medically Managed Detox Regimen/Protocol: Librium Claeared for Rehab Admission: No Breathalyzer - Breathalyzer Breathalyzer: 0.121 Urine Drug Screen - Test Device Lot number: [id number] Expiration date: 04/30/20 - Control Is test valid?: Yes - Results Urine drug screen results: FEN-Fentanyl, MOP-Opiates, MTD-Methadone Inpatient Rehab Admission - Rehab Decision to Admit Inpatient rehab admission?: No
[2018-09-14] MEDS ORDERED: ONDANSETRON *ODT* 4 MG TABLET SL PRN (21:34)
[2018-09-14] MEDS ORDERED: NICOTINE POLACRILEX 2 MG GUM BUC PRN (21:34)
[2018-09-14] MEDS ORDERED: MELATONIN 5 MG TABLETS PO PRN (21:34)
[2018-09-14] MEDS ORDERED: MAG HYDROX/AL HYDROX/SIMETH 30 ML UNIT-DOSE CUP PO PRN (21:34)
[2018-09-14] MEDS ORDERED: IBUPROFEN 400 MG TABLET (FP) PO PRN ×2 (21:34)
[2018-09-14] MEDS ORDERED: guaiFENesin 200 MG/10 ML 10 ML UNIT-DOSE CUPS PO PRN (21:34)
[2018-09-14] MEDS ORDERED: DICYCLOMINE HCL 10 MG CAPSULE PO PRN (21:34)
[2018-09-14] MEDS ORDERED: MAGNESIUM CITRATE 300 ML BOTTLE PO PRN (21:34)
[2018-09-14] MEDS ORDERED: BISMUTH SUBSALICYLATE 524 MG/30 ML UD PO PRN (21:34)
[2018-09-14] MEDS ORDERED: chlordiazePOXIDE HCL 25 MG CAPSULE PO PRN (21:34)
[2018-09-14] MEDS ORDERED: METHOCARBAMOL 500 MG TABLET PO PRN (21:34)
[2018-09-14] MEDS ORDERED: hydrOXYzine PAMOATE 25 MG CAPSULE (FP) PO PRN (21:34)
[2018-09-14] MEDS ORDERED: P-EPHED 60MG/TRIPROLIDI 2.5MG TABLET PO PRN (21:34)
[2018-09-14] MEDS ORDERED: MAGNESIUM HYDROX 2400MG/30ML ORAL SUSPENSION 30 ML CUP PO PRN (21:34)
[2018-09-14] MEDS ORDERED: MENTHOL/PHENOL 1 EACH UD MM PRN (21:34)
[2018-09-14] MEDS ORDERED: ACETAMINOPHEN 325 MG TABLET (FP) PO PRN ×2 (21:34)
[2018-09-14] MEDS: THIAMINE HCL 100 MG TABLET (FP) PO SCH (22:58)
[2018-09-14] MEDS: chlordiazePOXIDE HCL 25 MG CAPSULE PO SCH (22:58)
[2018-09-15] MEDS: chlordiazePOXIDE HCL 25 MG CAPSULE PO SCH ×4 (06:03→22:36)
[2018-09-15] MEDS ORDERED: cloNIDine HCL 0.1 MG TABLET PO ONE (07:35)
--- NOTE | 2018-09-15 07:37 | PN ---
S Progress Note Note: bp 158/110,no complaint,withdrawal symptom,clonidine 0.1 mg po now,amlodipine 10 mgs po daily, continue detox,close monitoring
[2018-09-15] MEDS: NICOTINE 21 MG/24 HOURS TOPICAL PATCH TD SCH (10:28)
[2018-09-15] MEDS: amLODIPine BESYLATE 10 MG TABLET (FP) PO SCH (10:28)
[2018-09-15] MEDS: PRENATAL VITAMINS W/ FOLIC ACID TABLET (FP) PO SCH (10:28)
[2018-09-15] MEDS ORDERED: ALBUTEROL SO4 8 GM HFA INHALER IH PRN (11:05)
--- NOTE | 2018-09-15 11:14 | PN ---
S CIWA - CIWA Score Nausea/Vomitin-Mild Nausea/No Vomiting Muscle Tremors: 3 Anxiety: 2 Agitation: 3 Paroxysmal Sweats: 1-Minimal Palms Moist Orientation: 3-Disoriented Date>2 days Tacttile Disturbances: 0-None Auditory Disturbances: 0-None Visual Disturbances: 0-None Headache: 0-None Present CIWA-Ar Total Score: 13 BHS Progress Note (SOAP) Subjective: patient was at the methadone program 50 mg po daily last dose "July" discuss with the patient that he has not decided to return or not to the methadone program informed patient possible methadone detox regimen "Not your concern" encourage the patient provide input regarding methadone detox at [facility] patient replies "I have not ask for methadone" Objective: 09/15/18 11:14 Vital Signs Temperature 97.7 F 09/15/18 09:08 Pulse Rate 62 09/15/18 09:08 Respiratory Rate 18 09/15/18 09:08 Blood Pressure 154/94 09/15/18 09:08 O2 Sat by Pulse Oximetry (%) Assessment: 09/15/18 11:15 alcohol withdrawal sx Plan: continue detox
[2018-09-15 12:54] LABS: ALBUMIN 3.5 g/dl (3.4-5.0); ALK PHOS 83 U/L (45-117); ANION GAP 4 MMOL/L (8-16); BILIRUBIN,TOTAL 0.3 mg/dL (0.2-1); BLOOD UREA NITROGEN 17 mg/dL (7-18); CALCIUM 9.2 mg/dL (8.5-10.1); CHLORIDE 106 mmol/L (98-107); CO2 27 mmol/L (21-32); CREATININE 0.8 mg/dL (0.55-1.3); GLUCOSE,RANDOM 86 mg/dL (74-106); POTASSIUM 4.1 mmol/L (3.5-5.1); SGOT/AST 29 U/L (15-37); SGPT/ALT 61 U/L (13-61); SODIUM 137 mmol/L (136-145); TOT PROT 6.9 g/dl (6.4-8.2)
[2018-09-15 13:39] LABS: HEMATOCRIT 34.9 % (35.4-49); HEMOGLOBIN 11.8 GM/dL (11.7-16.9); MCH 28.7 pg (25.7-33.7); MCHC 33.9 g/dl (32.0-35.9); MEAN CELL VOLUME 84.7 fl (80-96); MEAN PLT VOLUME 8.1 fl (7.5-11.1); PLATELET COUNT 309 K/MM3 (134-434); RBC 4.12 M/mm3 (4.00-5.60); RDW 15.5 % (11.9-15.9); WHITE BLOOD COUNT 6.1 K/mm3 (4.0-10.0)
[2018-09-15] MEDS: LISINOPRIL 10 MG TABLET (FP) PO SCH (14:23)
--- NOTE | 2018-09-15 16:28 | CONSULT ---
[facility] Psychiatric Consult - Data Date of interview: 09/15/18 Admission source: [facility] Identifying data: Patient is approached at bedside for psychiatric interview. REFUSES. Nursing staff is made aware.
[2018-09-15] MEDS: THIAMINE HCL 100 MG TABLET (FP) PO SCH (22:35)
[2018-09-16] MEDS: chlordiazePOXIDE HCL 25 MG CAPSULE PO SCH ×2 (06:33→10:14)
[2018-09-16 06:37] VITALS: BP 155/99; PULSE 69; TEMP 97.6
[2018-09-16] MEDS: LISINOPRIL 10 MG TABLET (FP) PO SCH (10:14)
[2018-09-16] MEDS: PRENATAL VITAMINS W/ FOLIC ACID TABLET (FP) PO SCH (10:14)
[2018-09-16] MEDS: NICOTINE 21 MG/24 HOURS TOPICAL PATCH TD SCH (10:14)
[2018-09-16] MEDS: amLODIPine BESYLATE 10 MG TABLET (FP) PO SCH (10:14)
[2018-09-16] MEDS ORDERED: METHADONE HCL 10 MG TABLET PO ONE (10:18)
[2018-09-16] MEDS ORDERED: METHADONE (DETOX) 10 MG, METHADONE (DETOX) 5 MG PO ONE (10:20)
--- NOTE | 2018-09-16 10:28 | PN ---
S CIWA - CIWA Score Nausea/Vomitin-Mild Nausea/No Vomiting Muscle Tremors: 3 Anxiety: 1-Mildly Anxious Agitation: 2 Paroxysmal Sweats: 1-Minimal Palms Moist Orientation: 1-Uncertain about Date Tacttile Disturbances: 0-None Auditory Disturbances: 0-None Visual Disturbances: 0-None Headache: 0-None Present CIWA-Ar Total Score: 9 BHS COWS - Scale Resting Pulse: 0= [place] 80 or Below Sweatin= Chills/Flushing Restless Observation: 0= Sits Still Pupil Size: 0= Normal to Room Light Bone or Joint Aches: 1= Mild Discomfort Runny Nose/ Eye Tearin= Nasal Congestion GI Upset > 30mins: 1= Stomach Cramp Tremor Observation of Outstretched Hands: 2= Slight Tremor Visible Yawning Observation: 1= 1-2x During Session Anxiety or Irritability: 2=Irritable/Anxious Goose Flesh Skin: 0=Smooth Skin COWS Score: 9 S Progress Note (SOAP) Subjective: patient reporting that he does not want to return to methadone program patient wants to be detox off from methadone begin methadone 15 mg po today and 10 mg 09/17/18 and 5 mg po 09/18/18 Objective: 09/16/18 10:28 Vital Signs Temperature 97.6 F 09/16/18 06:37 Pulse Rate 69 09/16/18 06:37 Respiratory Rate 18 09/16/18 06:37 Blood Pressure 155/99 09/16/18 06:37 O2 Sat by Pulse Oximetry (%) Laboratory Last Values WBC 6.1 K/mm3 (4.0-10.0) 09/15/18 07:00 RBC 4.12 M/mm3 (4.00-5.60) 09/15/18 07:00 Hgb 11.8 GM/dL (11.7-16.9) 09/15/18 07:00 Hct 34.9 % (35.4-49) L 09/15/18 07:00 MCV 84.7 fl (80-96) 09/15/18 07:00 MCH 28.7 pg (25.7-33.7) 09/15/18 07:00 MCHC 33.9 g/dl (32.0-35.9) 09/15/18 07:00 RDW 15.5 % (11.9-15.9) 09/15/18 07:00 Plt Count 309 K/MM3 (134-434) 09/15/18 07:00 MPV 8.1 fl (7.5-11.1) 09/15/18 07:00 Sodium 137 mmol/L (136-145) 09/15/18 07:00 Potassium 4.1 mmol/L (3.5-5.1) 09/15/18 07:00 Chloride 106 mmol/L (98-107) 09/15/18 07:00 Carbon Dioxide 27 mmol/L (21-32) 09/15/18 07:00 Anion Gap 4 MMOL/L (8-16) L 09/15/18 07:00 BUN 17 mg/dL (7-18) 09/15/18 07:00 Creatinine 0.8 mg/dL (0.55-1.3) 09/15/18 07:00 Creat Clearance w eGFR 100.36 (>60) 09/15/18 07:00 Random Glucose 86 mg/dL (74-106) 09/15/18 07:00 Calcium 9.2 mg/dL (8.5-10.1) 09/15/18 07:00 Total Bilirubin 0.3 mg/dL (0.2-1) 09/15/18 07:00 AST 29 U/L (15-37) 09/15/18 07:00 ALT 61 U/L (13-61) 09/15/18 07:00 Alkaline Phosphatase 83 U/L (45-117) 09/15/18 07:00 Total Protein 6.9 g/dl (6.4-8.2) 09/15/18 07:00 Albumin 3.5 g/dl (3.4-5.0) 09/15/18 07:00 increase lisinopril to 10 mg po bid lab noted 09/16/18 10:31 Assessment: 09/16/18 10:32 withdrawal sx Plan: continue detox
[2018-09-16] MEDS ORDERED: cloNIDine HCL 0.1 MG TABLET PO PRN (10:30)
[2018-09-16] MEDS ORDERED: METHADONE HCL 5 MG TABLET (FOR DETOX USE ONLY) ONE (10:44)
[2018-09-16] MEDS ORDERED: METHADONE HCL 10 MG TABLET (FOR DETOX USE ONLY) ONE (10:44)
[2018-09-16] MEDS ORDERED: LISINOPRIL 10 MG TABLET (FP) PO SCH (22:00)
[2018-09-16] MEDS ORDERED: chlordiazePOXIDE HCL 10 MG CAPSULE PO SCH (23:00)
[2018-09-16] MEDS ORDERED: chlordiazePOXIDE HCL 10 MG CAPSULE PO PRN (23:00)
[2018-09-17] MEDS ORDERED: METHADONE HCL 10 MG TABLET (FOR DETOX USE ONLY) PO ONE (10:00)
[2018-09-17] MEDS ORDERED: chlordiazePOXIDE HCL 10 MG CAPSULE PO SCH (23:00)
[2018-09-18] MEDS ORDERED: METHADONE HCL 5 MG TABLET (FOR DETOX USE ONLY) PO ONE (06:00)
== END 2018-09-16 11:37 | disposition left against medical advice (07) | DRG 770 ==
LOC: YASAS 15:45 → Y3N 22:02
PROVIDERS: ADMIT Surgery; ATTEND Surgery
PROC: HZ2ZZZZ Detoxification Services for Substance Abuse Treatment (ICD-10-PCS; principal; 2018-09-14)
DX: F10.230 Alcohol dependence with withdrawal, uncomplicated (principal); F11.20 Opioid dependence, uncomplicated; F17.210 Nicotine dependence, cigarettes, uncomplicated; I10 Essential (primary) hypertension; J45.909 Unspecified asthma, uncomplicated; R63.8 Other symptoms and signs concerning food and fluid intake; G47.00 Insomnia, unspecified; Z88.0 Allergy status to penicillin; Z91.013 Allergy to seafood; Z91.14 Patient's other noncompliance with medication regimen
CPT/HCPCS: 36415; 80053; 85027; J0735

== ENCOUNTER 2018-10-11 14:56 | Inpatient (IN) | payer OTHER ==
[2018-10-11 16:57] VITALS: BMI 23.6
--- NOTE | 2018-10-11 17:23 | HP ---
CIWA Score Nausea/Vomitin Muscle Tremors: 2 Anxiety: 2 Agitation: 2 Paroxysmal Sweats: 1-Minimal Palms Moist Orientation: 0-Oriented Tacttile Disturbances: 1-Very Mild Itch/Numbness Auditory Disturbances: 1-Very Mild Visual Disturbances: 1-Very Mild Sensitivity Headache: 1-Very Mild CIWA-Ar Total Score: 13 - Admission Criteria OASAS Guidelines: Admission for Medically Managed Detox: Requires at least one of the followin. CIWA greater than 12 2. Seizures within the past 24 hours 3. Delirium tremens within the past 24 hours 4. Hallucinations within the past 24 hours 5. Acute intervention needed for co occurring medical disorder 6. Acute intervention needed for co occurring psychiatric disorder 7. Severe withdrawal that cannot be handled at a lower level of care (continued vomiting, continued diarrhea, abnormal vital signs) requiring intravenous medication and/or fluids 8. Admission ROS S - [facility] Chief Complaint: WITHDRAWAL Allergies/Adverse Reactions: Allergies Allergy/AdvReac Type Severity Reaction Status Date / Time Penicillins Allergy Severe Difficulty Verified 10/11/18 16:42 Breathing shellfish derived Allergy Severe Rash Verified 10/11/18 16:42 turkey Allergy Severe Rash Verified 10/11/18 16:42 History of Present Illness: 53 Y.O. MAN WITH AN EXTENSIVE HISTORY OF HEROIN, ALCOHOL AND K2 DEPENDENCE IS HERE SEEKING DETOX SERVICES. HE WAS LAST HERE ON 09/14/18-09/16/18 BUT LEFT AMA. HE REPORTS HE IS ENROLLED IN [facility] AND IS REGULAR DOSE OF METHADONE IS 50MG BUT DUE TO BEING ABSENT, HE STATES HE WAS MEDICATED TODAY AT 30MG. LONGEST PERIOD OF ILLICIT DRUG AND ALCOHOL ABSTINENCE HAS BEEN 20 YEARS WHILE INCARCERATED. - Ebola screening Have you traveled outside of the country in the last 21 days: No Have you had contact with anyone from an Ebola affected area: No Do you have a fever: No - Review of Systems Constitutional: Chills, Changes in sleep, Unexplained wgt Loss EENT: reports: Tearing, Nose Congestion Respiratory: reports: Cough Cardiac: reports: No Symptoms Reported GI: reports: Diarrhea, Nausea, Poor Appetite, Vomiting : reports: No Symptoms Reported Musculoskeletal: reports: No Symptoms Reported Integumentary: reports: No Symptoms Reported Neuro: reports: Headache, Numbness, Tremors Endocrine: reports: No Symptoms Reported Hematology: reports: No Symptoms Reported Psychiatric: reports: Orientated x3, Depressed, other (BIPOLAR) Other Systems: Reviewed and Negative Patient History - Patient Medical History Hx Anemia: No Hx Asthma: No Hx Chronic Obstructive Pulmonary Disease (COPD): No Hx Cancer: No Hx Cardiac Disorders: No Hx Congestive Heart Failure: No Hx Hypertension: Yes (NORVASC ) Hx Hypercholesterolemia: No Hx Pacemaker: No HX Cerebrovascular Accident: No Hx Seizures: No Hx Dementia: No Hx Diabetes: No Hx Gastrointestinal Disorders: No Hx Liver Disease: No Hx Genitourinary Disorders: No Hx Sexually Transmitted Disorders: No Hx Renal Disease (ESRD): No Hx Thyroid Disease: No Hx Human Immunodeficiency Virus (HIV): No Hx Hepatitis C: No Hx Depression: No Hx Suicide Attempt: No Hx Bipolar Disorder: No Hx Schizophrenia: No - Patient Surgical History Past Surgical History: No Hx Neurologic Surgery: No Hx Cataract Extraction: No Hx Cardiac Surgery: No Hx Lung Surgery: No Hx Breast Surgery: No Hx Breast Biopsy: No Hx Abdominal Surgery: No Hx Appendectomy: No Hx Cholecystectomy: No Hx Genitourinary Surgery: No Hx Section: No Hx Orthopedic Surgery: No Anesthesia Reaction: No - PPD History Previous Implant?: Yes Documented Results: Negative w/proof Implanted On Prior [facility] Admission?: Yes Date: 03/29/18 Results: 0 mm PPD to be Administered?: No - Reproductive History Patient is a Female of Child Bearing Age (11 -55 yrs old): No - Smoking Cessation Smoking history: Current every day smoker Have you smoked in the past 12 months: No Aproximately how many cigarettes per day: 10 Cigars Per Day: 0 Hx Chewing Tobacco Use: No Initiated information on smoking cessation: Yes 'Breaking Loose' booklet given: 10/11/18 - Substance & Tx. History Hx Alcohol Use: Yes Hx Substance Use: Yes Substance Use Type: Alcohol, Heroin Hx Substance Use Treatment: Yes (DETOX: 08/2018) - Substances abused Heroin Substance route: Inhalation Frequency: Daily Amount used: 10 BAGS Age of first use: 36 Date of last use: 10/11/18 Alcohol Other (specify): VODKA Substance route: Oral Frequency: Daily Amount used: 2 PINTS Age of first use: 36 Date of last use: 10/11/18 K2/Spice Substance route: Inhalation Frequency: Daily Amount used: $20 Age of first use: 51 Date of last use: 10/11/18 Family Disease History - Family Disease History Family Disease History: Heart Disease: Mother (), CA: Father (, ALCOHOLIC), Other: Father, Mother Admission Physical Exam [facility] - Vital Signs Vital Signs: Vital Signs - 24 hr 10/11/18 10/11/18 16:47 17:08 Temperature 97.1 F L 97.1 F L Pulse Rate 68 68 Respiratory 18 18 Rate Blood Pressure 160/103 H 160/103 H - Physical General Appearance: Yes: Sweating, Anxious HEENTM: Yes: Normocephalic Respiratory: Yes: Chest Non-Tender, Lungs Clear, Normal Breath Sounds Neck: Yes: No masses,lesions,Nodules Breast: Yes: Breast Exam Deferred Cardiology: Yes: Regular Rhythm, Regular Rate Abdominal: Yes: Normal Bowel Sounds, Non Tender Genitourinary: Yes: Within Normal Limits (NO COMPLAINTS REPORTED) Back: Yes: Normal Inspection Musculoskeletal: Yes: full range of Motion, Gait Steady Extremities: Yes: Normal Capillary Refill, Normal Inspection, Normal Range of Motion Neurological: Yes: Fully Oriented, Alert Integumentary: Yes: Normal Color, Dry, Warm Lymphatic: Yes: Within Normal Limits - Diagnostic (1) Alcohol dependence with uncomplicated withdrawal Current Visit: Yes Status: Chronic (2) Weight loss Current Visit: Yes Status: Acute (3) COPD (chronic obstructive pulmonary disease) Current Visit: Yes Status: Chronic Qualifiers: COPD type: emphysema Emphysema type: unspecified Qualified Code(s): J43.9 - Emphysema, unspecified (4) Hypertension Current Visit: Yes Status: Chronic Qualifiers: Hypertension type: essential hypertension Qualified Code(s): I10 - Essential (primary) hypertension (5) Methadone maintenance therapy patient Current Visit: Yes Status: Chronic (6) Nicotine dependence Current Visit: Yes Status: Chronic Qualifiers: Nicotine product type: cigarettes Substance use status: in withdrawal Qualified Code(s): F17.213 - Nicotine dependence, cigarettes, with withdrawal Cleared for Admission [facility] - Detox or Rehab [facility] Level of Care: Medically Managed Detox Regimen/Protocol: Librium Breathalyzer - Breathalyzer Breathalyzer: 0.110 Urine Drug Screen - Test Device Lot number: [id number] Expiration date: 07/01/20 - Control Is test valid?: Yes - Results Drug screen NEGATIVE: No Urine drug screen results: THC-Marijuana, FEN-Fentanyl, MOP-Opiates, OXY- Oxycodone, MTD-Methadone, BZO-Benzodiazepines Inpatient Rehab Admission - Rehab Decision to Admit Inpatient rehab admission?: No
[2018-10-11] MEDS ORDERED: MAGNESIUM CITRATE 300 ML BOTTLE PO PRN (17:33)
[2018-10-11] MEDS ORDERED: MENTHOL/PHENOL 1 EACH UD MM PRN (17:33)
[2018-10-11] MEDS ORDERED: ACETAMINOPHEN 325 MG TABLET (FP) PO PRN ×2 (17:33)
[2018-10-11] MEDS ORDERED: METHOCARBAMOL 500 MG TABLET PO PRN (17:33)
[2018-10-11] MEDS ORDERED: MELATONIN 5 MG TABLETS PO PRN (17:33)
[2018-10-11] MEDS ORDERED: MAG HYDROX/AL HYDROX/SIMETH 30 ML UNIT-DOSE CUP PO PRN (17:33)
[2018-10-11] MEDS ORDERED: QUEtiapine FUMARATE 50 MG TABLET PO PRN (17:33)
[2018-10-11] MEDS ORDERED: hydrOXYzine PAMOATE 25 MG CAPSULE (FP) PO PRN (17:33)
[2018-10-11] MEDS ORDERED: IBUPROFEN 400 MG TABLET (FP) PO PRN (17:33)
[2018-10-11] MEDS ORDERED: BISMUTH SUBSALICYLATE 524 MG/30 ML UD PO PRN (17:33)
[2018-10-11] MEDS ORDERED: chlordiazePOXIDE HCL 25 MG CAPSULE PO PRN (17:33)
[2018-10-11] MEDS ORDERED: MAGNESIUM HYDROX 2400MG/30ML ORAL SUSPENSION 30 ML CUP PO PRN (17:33)
[2018-10-11] MEDS ORDERED: NICOTINE POLACRILEX 2 MG GUM BUC PRN (17:33)
[2018-10-11] MEDS: ALBUTEROL SO4 8 GM HFA INHALER IH SCH ×2 (18:50→23:02)
[2018-10-11] MEDS: chlordiazePOXIDE HCL 25 MG CAPSULE PO SCH (23:01)
[2018-10-11] MEDS: BUDESONIDE/FORMETEROL FUMARATE 160/4.5 mcg INHALER IH SCH (23:02)
[2018-10-11] MEDS: THIAMINE HCL 100 MG TABLET (FP) PO SCH (23:02)
[2018-10-12] MEDS: chlordiazePOXIDE HCL 25 MG CAPSULE PO SCH ×4 (06:38→22:14)
--- NOTE | 2018-10-12 09:10 | PN ---
BHS CIWA - CIWA Score Nausea/Vomitin Muscle Tremors: 2 Anxiety: 2 Agitation: 2 Paroxysmal Sweats: 1-Minimal Palms Moist Orientation: 0-Oriented Tacttile Disturbances: 1-Very Mild Itch/Numbness Auditory Disturbances: 1-Very Mild Visual Disturbances: 0-None Headache: 2-Mild CIWA-Ar Total Score: 13 BHS Progress Note (SOAP) Subjective: alert,irritable,anxious,interrupted sleep,tremor Objective: 10/12/18 09:09 Vital Signs Temperature 97.7 F 10/12/18 06:00 Pulse Rate 62 10/12/18 06:00 Respiratory Rate 18 10/12/18 06:00 Blood Pressure 152/98 10/12/18 06:00 O2 Sat by Pulse Oximetry (%) labs pending Assessment: 10/12/18 09:10 withdrawal symptom Plan: continue detox
[2018-10-12] MEDS ORDERED: METHADONE HCL 10 MG TABLET PO ONE (09:30)
[2018-10-12] MEDS: ALBUTEROL SO4 8 GM HFA INHALER IH SCH ×4 (10:25→23:19)
[2018-10-12] MEDS: NICOTINE 14 MG/24 HOURS TOPICAL PATCH TD SCH (10:25)
[2018-10-12] MEDS: PRENATAL VITAMINS W/ FOLIC ACID TABLET (FP) PO SCH (10:56)
[2018-10-12] MEDS: metoPROLOL SUCCINATE 25 MG TAB.SR.24H (FP) PO SCH (10:56)
[2018-10-12] MEDS: amLODIPine BESYLATE 10 MG TABLET (FP) PO SCH (10:56)
[2018-10-12] MEDS: LISINOPRIL 10 MG TABLET (FP) PO SCH (10:56)
[2018-10-12] MEDS: BUDESONIDE/FORMETEROL FUMARATE 160/4.5 mcg INHALER IH SCH ×2 (10:57→23:18)
[2018-10-12 12:26] LABS: HEMATOCRIT 38.6 % (35.4-49); HEMOGLOBIN 12.7 GM/dL (11.7-16.9); MCH 27.9 pg (25.7-33.7); MCHC 32.9 g/dl (32.0-35.9); PLATELET COUNT 339 K/MM3 (134-434); RBC 4.54 M/mm3 (4.00-5.60); RDW 14.9 % (11.9-15.9); WHITE BLOOD COUNT 7.4 K/mm3 (4.0-10.0)
[2018-10-12 12:34] LABS: ALBUMIN 3.6 g/dl (3.4-5.0); BILIRUBIN,TOTAL 0.5 mg/dL (0.2-1); CALCIUM 9.1 mg/dL (8.5-10.1); CREATININE 1.1 mg/dL (0.55-1.3); TOT PROT 6.8 g/dl (6.4-8.2)
--- NOTE | 2018-10-12 14:45 | CONSULT ---
[facility] Psychiatric Consult - Data Date of interview: 10/12/18 Admission source: [facility] Identifying data: Readmission to [facility] for this 53 y/o AA male self- referred for detoxification (heroin, marihuana-K2, alcohol). Patient is single without children, homeless, unemployed and deprived of any source of income. Substance Abuse History: Confirmed by patient in this session : Smoking history : Current every day smoker. Have you smoked in the past 12 months: No. Aproximately how many cigarettes per day: 10. Cigars Per Day: 0. Hx Chewing Tobacco Use: No. Initiated information on smoking cessation: Yes. 'Breaking Loose' booklet given: 10/11/18. - Substance & Tx. History. Hx Alcohol Use: Yes. Hx Substance Use: Yes. Substance Use Type: Alcohol, Heroin. Hx Substance Use Treatment: Yes (DETOX: 08/2018). - Substances abused. Heroin. Substance route: Inhalation. Frequency: Daily. Amount used: 10 BAGS. Age of first use: 36. Date of last use: 10/11/18. Alcohol. Other (specify): VODKA. Substance route: Oral. Frequency: Daily. Amount used: 2 PINTS. Age of first use: 36. Date of last use: 10/11/18. K2/Spice. Substance route: Inhalation. Frequency: Daily. Amount used: $20. Age of first use: 51. Date of last use: 10/11/18 Medical History: Hypertension and bronchial asthma. Psychiatric History: No change in psyhiatric profile since encounter of 08/2018. Patient denies history of psychiatric hospitalizations. Patient declares that he is currently on [facility] Diagnosed with MDD and PTSD. Mr Zurita informs that he has stopped seeing his psychiatrist for medication management (celexa 30 mg/day + buspar 10 mg po tid + ambien 10 mg/hs). Patient argues that these medications " are not working ". Non adherent to OPD care + medications for more than 3 months. Denies history of suicide attempts. Physical/Sexual Abuse/Trauma History: No history reported. Additional Comment: Urine drug screen results: THC-Marijuana, FEN-Fentanyl, MOP- Opiates, OXY-Oxycodone, MTD-Methadone, BZO-Benzodiazepines. Noted. Mental Status Exam - Mental Status Exam Alert and Oriented to: Time, Place, Person Cognitive Function: Grossly Intact Patient Appearance: Unkempt, Disheveled Mood: Angry, Hostile, Irritable Affect: Mood Congruent, Blunted Patient Behavior: Guarded Speech Pattern: Clear Voice Loudness: Normal Thought Process: Goal Oriented Hallucinations: Denies Suicidal Ideation: Denies Homicidal Ideation: Denies Insight/Judgement: Poor Sleep: Poorly, Difficulty falling asleep Appetite: Good Muscle strength/Tone: Normal Gait/Station: Normal Psychiatric Findings - Problem List (Winter 1, 2,3) (1) Alcohol dependence with uncomplicated withdrawal Current Visit: Yes Status: Acute (2) Opioid dependence with withdrawal Current Visit: Yes Status: Acute (3) Cannabis dependence Current Visit: Yes Status: Chronic (4) Nicotine dependence Current Visit: Yes Status: Chronic Qualifiers: Nicotine product type: cigarettes Substance use status: in withdrawal Qualified Code(s): F17.213 - Nicotine dependence, cigarettes, with withdrawal (5) Drug-induced mood disorder Current Visit: Yes Status: Chronic (6) Insomnia Current Visit: Yes Status: Chronic Qualifiers: Insomnia type: unspecified Qualified Code(s): G47.00 - Insomnia, unspecified (7) History of depression Current Visit: Yes Status: Chronic (8) Non compliance w medication regimen Current Visit: Yes Status: Chronic - Initial Treatment Plan Initial Treatment Plan: Psychoeducation. Sleep hygiene. Detoxification. Patient is agreeable to a trial of seroquel 100 mg po hs (mood stabilization + sleep improvement). Side effects/benefits discussed with the patient. Consent (verbal ) given to MD. Soto.
[2018-10-12] MEDS: THIAMINE HCL 100 MG TABLET (FP) PO SCH (22:14)
[2018-10-12] MEDS: QUEtiapine FUMARATE 100 MG TABLET (FP) PO SCH (22:14)
[2018-10-13] MEDS: ALBUTEROL SO4 8 GM HFA INHALER IH SCH ×4 (02:44→22:11)
[2018-10-13] MEDS: chlordiazePOXIDE HCL 25 MG CAPSULE PO SCH ×3 (06:02→18:07)
[2018-10-13] MEDS: METHADONE HCL 10 MG TABLET PO SCH (06:02)
[2018-10-13] MEDS: LISINOPRIL 10 MG TABLET (FP) PO SCH (10:59)
[2018-10-13] MEDS: PRENATAL VITAMINS W/ FOLIC ACID TABLET (FP) PO SCH (10:59)
[2018-10-13] MEDS: amLODIPine BESYLATE 10 MG TABLET (FP) PO SCH (10:59)
[2018-10-13] MEDS: metoPROLOL SUCCINATE 25 MG TAB.SR.24H (FP) PO SCH (10:59)
[2018-10-13] MEDS: BUDESONIDE/FORMETEROL FUMARATE 160/4.5 mcg INHALER IH SCH ×2 (11:00→22:08)
[2018-10-13] MEDS: NICOTINE 14 MG/24 HOURS TOPICAL PATCH TD SCH (11:00)
--- NOTE | 2018-10-13 14:03 | PN ---
S CIWA - CIWA Score Nausea/Vomitin-No Nausea/No Vomiting Muscle Tremors: 2 Anxiety: 5 Agitation: 4-Moderately Restless Paroxysmal Sweats: No Perspiration Orientation: 2-Disoriented Date<2 days Tacttile Disturbances: 0-None Auditory Disturbances: 0-None Visual Disturbances: 1-Very Mild Sensitivity Headache: 0-None Present CIWA-Ar Total Score: 14 [facility] Progress Note (SOAP) Subjective: Anxious, Agitated, Interrupted Sleep, Tremors. Objective: PATIENT A & O X 2 (UNCERTAIN ABOUT CURRENT DAY / DATE). PATIENT OBSERVED AMBULATING ON UNIT UNASSISTED. IN NO ACUTE DISTRESS. 10/13/18 14:04 Vital Signs Temperature 97.0 F L 10/13/18 09:13 Pulse Rate 67 10/13/18 09:13 Respiratory Rate 18 10/13/18 09:13 Blood Pressure 134/78 10/13/18 09:13 O2 Sat by Pulse Oximetry (%) Laboratory Tests 10/12/18 10/12/18 10/12/18 07:30 07:30 07:30 WBC 7.4 RBC 4.54 Hgb 12.7 Hct 38.6 MCV 85.0 MCH 27.9 MCHC 32.9 RDW 14.9 Plt Count 339 MPV 8.0 Sodium 135 L Potassium 4.0 Chloride 106 Carbon Dioxide 25 Anion Gap 5 L BUN 18 Creatinine 1.1 Est GFR (CKD-EPI)AfAm 87.13 Est GFR (CKD-EPI)NonAf 75.17 Random Glucose 86 Calcium 9.1 Total Bilirubin 0.5 AST 21 ALT 32 Alkaline Phosphatase 81 Total Protein 6.8 Albumin 3.6 RPR Titer Nonreactive LABS NOTED. Assessment: 10/13/18 14:04 WITHDRAWAL SYMPTOMS. HYPERTENSION. 10/13/18 14:05 Plan: CONTINUE DETOX. CONTINUE TO MONITOR BLOOD PRESSURE.
--- NOTE | 2018-10-13 14:48 | PN ---
Vel Progress Note Note: Psychiatry Attending's note (follow-up) : Asked to see this patient to address issue of medications. Mr Zurita was evaluated by this business writer on 10/12/18. See note for details. Brief meeting with the patient today, in the presence of nurse Kareem Martin. Patient requests to be back on celexa + buspar. " I want bigger doses ". Not found in list of Home medications. Patient remains perseverative. Call made to listed pharmacy ([facility]). At [phone] : no response. Side effects/benefits discussed. Medications ordered as : buspar 5 mg po tid celexa 10 mg po daily EKG is pending. Patient made aware of orders. Mr Zurita is agreeable with this plan of care.
[2018-10-13] MEDS: busPIRone HCL 5 MG TABLET PO SCH (22:08)
[2018-10-13] MEDS: THIAMINE HCL 100 MG TABLET (FP) PO SCH (22:08)
[2018-10-13] MEDS: QUEtiapine FUMARATE 100 MG TABLET (FP) PO SCH (22:08)
[2018-10-13] MEDS: chlordiazePOXIDE HCL 10 MG CAPSULE PO SCH (22:08)
[2018-10-13] MEDS ORDERED: chlordiazePOXIDE HCL 10 MG CAPSULE PO PRN (23:00)
[2018-10-14] MEDS: METHADONE HCL 10 MG TABLET PO SCH (05:46)
[2018-10-14] MEDS: busPIRone HCL 5 MG TABLET PO SCH ×3 (05:46→22:22)
[2018-10-14] MEDS: chlordiazePOXIDE HCL 10 MG CAPSULE PO SCH ×3 (05:47→17:48)
[2018-10-14] MEDS ORDERED: METHADONE HCL 10 MG TABLET PO ONE (10:09)
--- NOTE | 2018-10-14 10:16 | PN ---
[facility] Progress Note (SOAP) Subjective: alert,irritable,anxious,interrupted sleep Objective: 10/14/18 10:13 Vital Signs Temperature 97.3 F L 10/14/18 09:54 Pulse Rate 72 10/14/18 09:54 Respiratory Rate 18 10/14/18 09:54 Blood Pressure 135/87 10/14/18 09:54 O2 Sat by Pulse Oximetry (%) Assessment: 10/14/18 10:14 withdrawal symptom Plan: continue detox,patient isnon compliance with methadone program,he will get 40 mgs today,was medicated early with 30 mgs will give 10 mgs more to be total of 40 mgs today,and 50 mgs/day from 10/15/18
[2018-10-14] MEDS: metoPROLOL SUCCINATE 25 MG TAB.SR.24H (FP) PO SCH (10:28)
[2018-10-14] MEDS: LISINOPRIL 10 MG TABLET (FP) PO SCH (10:28)
[2018-10-14] MEDS: PRENATAL VITAMINS W/ FOLIC ACID TABLET (FP) PO SCH (10:29)
[2018-10-14] MEDS: amLODIPine BESYLATE 10 MG TABLET (FP) PO SCH (10:33)
[2018-10-14] MEDS: CITALOPRAM HYDROBROMIDE 10 MG TABLET (FP) PO SCH (10:33)
[2018-10-14] MEDS: NICOTINE 14 MG/24 HOURS TOPICAL PATCH TD SCH (10:34)
[2018-10-14] MEDS: BUDESONIDE/FORMETEROL FUMARATE 160/4.5 mcg INHALER IH SCH ×2 (11:01→22:24)
[2018-10-14] MEDS: ALBUTEROL SO4 8 GM HFA INHALER IH SCH ×4 (11:01→22:23)
[2018-10-14] MEDS: QUEtiapine FUMARATE 100 MG TABLET (FP) PO SCH (22:22)
[2018-10-14] MEDS: THIAMINE HCL 100 MG TABLET (FP) PO SCH (22:22)
[2018-10-14] MEDS ORDERED: chlordiazePOXIDE HCL 10 MG CAPSULE PO SCH (23:00)
[2018-10-15] MEDS ORDERED: METHADONE HCL 40 MG DISPERSABLE TABLET ONE (05:15)
[2018-10-15] MEDS ORDERED: METHADONE HCL 10 MG TABLET ONE (05:15)
[2018-10-15] MEDS ORDERED: METHADONE HCL 10 MG TABLET PO SCH (06:00)
[2018-10-15] MEDS ORDERED: METHADONE 40 MG, METHADONE 10 MG PO SCH (06:00)
[2018-10-15] MEDS: busPIRone HCL 5 MG TABLET PO SCH (07:00)
[2018-10-15 09:03] VITALS: BP 126/83; PULSE 84; TEMP 98.1
--- NOTE | 2018-10-15 09:03 | DS ---
[facility] Detox Discharge Summary Admission Date: 10/11/18 Discharge Date: 10/15/18 - History Present History: Alcohol Dependence, Cannabis Dependence, Opioid Dependence, MMTP - Physical Exam Results Vital Signs: Vital Signs Temperature 97.9 F 10/15/18 06:54 Pulse Rate 58 L 10/15/18 06:54 Respiratory Rate 18 10/15/18 06:54 Blood Pressure 129/83 10/15/18 06:54 O2 Sat by Pulse Oximetry (%) - Treatment Hospital Course: Detox Protocol Followed, Detoxed Safely, Responded well, Discharged Condition Good, Rehab Referral Accepted - Medication Discharge Medications: Ambulatory Orders Amlodipine Besylate [Norvasc -] 10 mg PO DAILY #14 tablet 08/11/18 Budesonide/Formeterol Fumarate [SYMBICORT 160/4.5mcg -] 1 inh PO BID #1 inhaler 08/11/18 Lisinopril [Prinivil] 10 mg PO DAILY 09/15/18 Metoprolol Succinate [Toprol Xl -] 25 mg PO DAILY 09/15/18 Albuterol Sulfate Inhaler - [Ventolin Hfa Inhaler -] 1 - 2 inh PO QID 10/11/18 - Diagnosis (1) Alcohol dependence with uncomplicated withdrawal Current Visit: Yes Status: Chronic (2) Weight loss Current Visit: Yes Status: Chronic (3) COPD (chronic obstructive pulmonary disease) Current Visit: Yes Status: Chronic Qualifiers: COPD type: emphysema Emphysema type: unspecified Qualified Code(s): J43.9 - Emphysema, unspecified (4) Cannabis dependence Current Visit: Yes Status: Chronic (5) Drug-induced mood disorder Current Visit: Yes Status: Chronic (6) History of depression Current Visit: Yes Status: Chronic (7) Hypertension Current Visit: Yes Status: Chronic Qualifiers: Hypertension type: essential hypertension Qualified Code(s): I10 - Essential (primary) hypertension (8) Methadone maintenance therapy patient Current Visit: Yes Status: Chronic (9) Nicotine dependence Current Visit: Yes Status: Chronic Qualifiers: Nicotine product type: cigarettes Substance use status: in withdrawal Qualified Code(s): F17.213 - Nicotine dependence, cigarettes, with withdrawal (10) Hyperkalemia Current Visit: No Status: Acute - AMA Did Patient Leave Against Medical Advice: No (referred to [facility] inpatient rehab)
[2018-10-15] MEDS: metoPROLOL SUCCINATE 25 MG TAB.SR.24H (FP) PO SCH (09:36)
[2018-10-15] MEDS: PRENATAL VITAMINS W/ FOLIC ACID TABLET (FP) PO SCH (09:36)
[2018-10-15] MEDS: LISINOPRIL 10 MG TABLET (FP) PO SCH (09:36)
[2018-10-15] MEDS: CITALOPRAM HYDROBROMIDE 10 MG TABLET (FP) PO SCH (09:36)
[2018-10-15] MEDS: amLODIPine BESYLATE 10 MG TABLET (FP) PO SCH (09:37)
[2018-10-15] MEDS: ALBUTEROL SO4 8 GM HFA INHALER IH SCH (09:38)
[2018-10-15] MEDS: BUDESONIDE/FORMETEROL FUMARATE 160/4.5 mcg INHALER IH SCH (09:38)
[2018-10-15] MEDS: NICOTINE 14 MG/24 HOURS TOPICAL PATCH TD SCH (09:38)
== END 2018-10-15 11:18 | disposition home or self-care (01) | DRG 773 ==
LOC: YASAS 14:56 → Y6N 18:10
PROVIDERS: ADMIT Surgery; ATTEND Surgery
PROC: HZ2ZZZZ Detoxification Services for Substance Abuse Treatment (ICD-10-PCS; principal; 2018-10-11)
DX: F10.230 Alcohol dependence with withdrawal, uncomplicated (principal); F11.20 Opioid dependence, uncomplicated; F12.20 Cannabis dependence, uncomplicated; F17.213 Nicotine dependence, cigarettes, with withdrawal; F19.24 Other psychoactive substance dependence with psychoactive substance-induced mood disorder; I10 Essential (primary) hypertension; J43.9 Emphysema, unspecified; R63.4 Abnormal weight loss; E87.5 Hyperkalemia; G47.00 Insomnia, unspecified; Z88.0 Allergy status to penicillin; Z91.013 Allergy to seafood; Z91.14 Patient's other noncompliance with medication regimen; Z59.0 Homelessness
CPT/HCPCS: 36415; 80053; 85027; 86593

== ENCOUNTER 2021-06-21 13:28 | Inpatient (IN) | payer OTHER ==
[2021-06-21] MEDS ORDERED: BISMUTH SUBSALICYLATE 524 MG/30 ML PO PRN (16:13)
[2021-06-21] MEDS ORDERED: METHOCARBAMOL 500 MG TABLET PO PRN (16:13)
[2021-06-21] MEDS ORDERED: MENTHOL/PHENOL 1 EACH UD MM PRN (16:13)
[2021-06-21] MEDS ORDERED: chlordiazePOXIDE HCL 25 MG CAPSULE PO PRN (16:13)
[2021-06-21] MEDS ORDERED: methaDONE HCL 10 MG TABLET (FOR DETOX USE ONLY) PO ONE (16:13)
[2021-06-21] MEDS ORDERED: MAGNESIUM HYDROX 2400MG/30ML ORAL SUSPENSION 30 ML CUP PO PRN (16:13)
[2021-06-21] MEDS ORDERED: ACETAMINOPHEN 325 MG TABLET (FP) PO PRN ×2 (16:13)
[2021-06-21] MEDS ORDERED: MAGNESIUM CITRATE 300 ML BOTTLE PO PRN (16:13)
[2021-06-21] MEDS ORDERED: NICOTINE 10 MG CARTRIDGE (INHALER) IH PRN (16:13)
[2021-06-21] MEDS ORDERED: MAG HYDROX/AL HYDROX/SIMETH 30 ML UNIT-DOSE CUP PO PRN (16:13)
[2021-06-21] MEDS ORDERED: IBUPROFEN 400 MG TABLET (FP) PO PRN (16:13)
[2021-06-21] MEDS ORDERED: ONDANSETRON *ODT* 4 MG TABLET SL PRN (16:13)
[2021-06-21] MEDS: chlordiazePOXIDE HCL 25 MG CAPSULE PO SCH ×3 (18:30→23:47)
[2021-06-21 19:33] VITALS: BMI 22.9
[2021-06-21] MEDS ORDERED: cloNIDine HCL 0.1 MG TABLET ONE (19:47)
[2021-06-21] MEDS: cloNIDine HCL 0.1 MG TABLET PO PRN (19:49)
[2021-06-21] MEDS ORDERED: ALBUTEROL SO4 HFA INHALER IH PRN (20:07)
[2021-06-21] MEDS ORDERED: hydrOXYzine PAMOATE 25 MG CAPSULE (FP) PO ONE (20:19)
[2021-06-21] MEDS ORDERED: methaDONE HCL 10 MG TABLET (FOR DETOX USE ONLY) ONE (20:19)
[2021-06-21] MEDS ORDERED: chlordiazePOXIDE HCL 25 MG CAPSULE ONE (20:21)
[2021-06-21] MEDS: hydrOXYzine PAMOATE 25 MG CAPSULE (FP) PO SCH ×2 (20:25→23:31)
[2021-06-21] MEDS: THIAMINE HCL 100 MG TABLET (FP) PO SCH (23:31)
[2021-06-21] MEDS: MELATONIN 5 MG TABLETS PO SCH (23:31)
[2021-06-22] MEDS: chlordiazePOXIDE HCL 25 MG CAPSULE PO SCH ×6 (06:06→22:59)
[2021-06-22] MEDS: hydrOXYzine PAMOATE 25 MG CAPSULE (FP) PO SCH ×6 (06:06→22:59)
[2021-06-22] MEDS: PRENATAL VITAMINS W/ FOLIC ACID TABLET (FP) PO SCH (10:51)
[2021-06-22] MEDS: amLODIPine BESYLATE 10 MG TABLET (FP) PO SCH (10:51)
[2021-06-22] MEDS: cloNIDine HCL 0.1 MG TABLET PO SCH (10:52)
[2021-06-22] MEDS ORDERED: methaDONE HCL 10 MG TABLET (FOR DETOX USE ONLY) ONE (10:53)
[2021-06-22 13:45] LABS: HEMATOCRIT 35.7 % (35.4-49); HEMOGLOBIN 11.3 GM/dL (11.7-16.9); MCH 26.9 pg (25.7-33.7); MCHC 31.7 g/dl (32.0-35.9); MEAN CELL VOLUME 84.8 fl (80-96); PLATELET COUNT 332 10^3/uL (134-434); RBC 4.21 M/mm3 (4.00-5.60); RDW 15.2 % (11.9-15.9); WHITE BLOOD COUNT 5.8 K/mm3 (4.0-10.0)
[2021-06-22 13:54] LABS: BLOOD UREA NITROGEN 33.5 mg/dL (7-18)
[2021-06-22 13:55] LABS: ALBUMIN 2.9 g/dl (3.4-5.0)
[2021-06-22 13:57] LABS: CREATININE 1.7 mg/dL (0.55-1.3)
[2021-06-22 13:58] LABS: BILIRUBIN,TOTAL 0.4 mg/dL (0.2-1); TOT PROT 6.3 g/dl (6.4-8.2)
[2021-06-22] MEDS: THIAMINE HCL 100 MG TABLET (FP) PO SCH (22:59)
[2021-06-22] MEDS: MELATONIN 5 MG TABLETS PO SCH (22:59)
[2021-06-23] MEDS: chlordiazePOXIDE HCL 25 MG CAPSULE PO SCH ×4 (05:57→22:09)
[2021-06-23] MEDS: hydrOXYzine PAMOATE 25 MG CAPSULE (FP) PO SCH ×3 (05:58→13:51)
[2021-06-23] MEDS ORDERED: methaDONE HCL 10 MG TABLET (FOR DETOX USE ONLY) PO ONE (10:00)
[2021-06-23] MEDS: amLODIPine BESYLATE 10 MG TABLET (FP) PO SCH (10:24)
[2021-06-23] MEDS: cloNIDine HCL 0.1 MG TABLET PO SCH (10:24)
[2021-06-23] MEDS: PRENATAL VITAMINS W/ FOLIC ACID TABLET (FP) PO SCH (10:24)
[2021-06-23] MEDS: cloNIDine HCL 0.1 MG TABLET PO PRN (17:58)
[2021-06-23] MEDS: THIAMINE HCL 100 MG TABLET (FP) PO SCH (22:09)
[2021-06-23] MEDS: LISINOPRIL 10 MG TABLET PO SCH (22:09)
[2021-06-24] MEDS ORDERED: chlordiazePOXIDE HCL 10 MG CAPSULE PO PRN
[2021-06-24] MEDS: chlordiazePOXIDE HCL 10 MG CAPSULE PO SCH ×4 (06:20→22:39)
[2021-06-24] MEDS ORDERED: methaDONE HCL 10 MG TABLET (FOR DETOX USE ONLY) ONE (09:09)
[2021-06-24] MEDS: PRENATAL VITAMINS W/ FOLIC ACID TABLET (FP) PO SCH (10:32)
[2021-06-24] MEDS: cloNIDine HCL 0.1 MG TABLET PO SCH (10:32)
[2021-06-24] MEDS: LISINOPRIL 10 MG TABLET PO SCH (10:33)
[2021-06-24] MEDS: amLODIPine BESYLATE 10 MG TABLET (FP) PO SCH (10:33)
[2021-06-24 10:53] LABS: ALBUMIN 2.9 g/dl (3.4-5.0)
[2021-06-24 10:57] LABS: BILIRUBIN,DIRECT 0.1 mg/dL (0.0-0.2)
[2021-06-24 10:58] LABS: BILIRUBIN,TOTAL 0.2 mg/dL (0.2-1); TOT PROT 6.3 g/dl (6.4-8.2)
[2021-06-24] MEDS: THIAMINE HCL 100 MG TABLET (FP) PO SCH (22:39)
[2021-06-24] MEDS: LISINOPRIL 20 MG TABLET PO SCH (22:39)
[2021-06-25] MEDS ORDERED: chlordiazePOXIDE HCL 10 MG CAPSULE PO SCH (05:00)
[2021-06-25 09:16] VITALS: BP 156/96; PULSE 81; TEMP 97.7
[2021-06-25] MEDS ORDERED: methaDONE HCL 10 MG TABLET (FOR DETOX USE ONLY) PO ONE (10:00)
[2021-06-25] MEDS: cloNIDine HCL 0.1 MG TABLET PO SCH (10:28)
[2021-06-25] MEDS: PRENATAL VITAMINS W/ FOLIC ACID TABLET (FP) PO SCH (10:28)
[2021-06-25] MEDS: LISINOPRIL 20 MG TABLET PO SCH (10:28)
[2021-06-25] MEDS: amLODIPine BESYLATE 10 MG TABLET (FP) PO SCH (10:28)
[2021-06-26] MEDS ORDERED: chlordiazePOXIDE HCL 10 MG CAPSULE PO ONE (05:00)
== END 2021-06-25 03:58 | disposition home or self-care (01) | DRG 773 ==
LOC: YASAS 13:28 → Y6N 19:31
PROVIDERS: ADMIT Allergy & Immunology; ATTEND Allergy & Immunology
PROC: HZ2ZZZZ Detoxification Services for Substance Abuse Treatment (ICD-10-PCS; principal; 2021-06-21)
DX: F11.23 Opioid dependence with withdrawal (principal); F10.230 Alcohol dependence with withdrawal, uncomplicated; F14.20 Cocaine dependence, uncomplicated; F17.210 Nicotine dependence, cigarettes, uncomplicated; F19.282 Other psychoactive substance dependence with psychoactive substance-induced sleep disorder; F19.24 Other psychoactive substance dependence with psychoactive substance-induced mood disorder; F32.A Depression, unspecified; F43.10 Post-traumatic stress disorder, unspecified; I10 Essential (primary) hypertension; J43.9 Emphysema, unspecified; J45.20 Mild intermittent asthma, uncomplicated; B35.3 Tinea pedis; R79.89 Other specified abnormal findings of blood chemistry; Z86.59 Personal history of other mental and behavioral disorders; Z88.0 Allergy status to penicillin; Z91.013 Allergy to seafood; Z91.018 Allergy to other foods; Z56.0 Unemployment, unspecified; Z59.00 Homelessness unspecified
CPT/HCPCS: 36415; 80053; 80076; 85027; 86780; C9803; J0735; U0003; U0005

== ENCOUNTER 2021-07-08 17:37 | Inpatient (IN) | payer OTHER ==
[2021-07-08 22:46] VITALS: BMI 24.6
[2021-07-09] MEDS ORDERED: MENTHOL/PHENOL 1 EACH UD MM PRN
[2021-07-09] MEDS ORDERED: MAG HYDROX/AL HYDROX/SIMETH 30 ML UNIT-DOSE CUP PO PRN
[2021-07-09] MEDS ORDERED: IBUPROFEN 400 MG TABLET (FP) PO PRN
[2021-07-09] MEDS ORDERED: MAGNESIUM CITRATE 300 ML BOTTLE PO PRN
[2021-07-09] MEDS ORDERED: ACETAMINOPHEN 325 MG TABLET (FP) PO PRN ×2
[2021-07-09] MEDS ORDERED: BISMUTH SUBSALICYLATE 524 MG/30 ML PO PRN
[2021-07-09] MEDS ORDERED: ONDANSETRON *ODT* 4 MG TABLET SL PRN
[2021-07-09] MEDS ORDERED: MAGNESIUM HYDROX 2400MG/30ML ORAL SUSPENSION 30 ML CUP PO PRN
[2021-07-09] MEDS ORDERED: ALBUTEROL SO4 HFA INHALER IH PRN (00:02)
[2021-07-09] MEDS: amLODIPine BESYLATE 10 MG TABLET (FP) PO SCH (10:42)
[2021-07-09] MEDS: cloNIDine HCL 0.1 MG TABLET PO SCH (10:42)
[2021-07-09] MEDS: LISINOPRIL 20 MG TABLET PO SCH ×2 (10:42→22:49)
[2021-07-09] MEDS: METHOCARBAMOL 500 MG TABLET PO PRN (10:42)
[2021-07-09] MEDS: PRENATAL VITAMINS W/ FOLIC ACID TABLET (FP) PO SCH (10:43)
[2021-07-09] MEDS ORDERED: chlordiazePOXIDE HCL 25 MG CAPSULE PO PRN (12:19)
[2021-07-09] MEDS ORDERED: methaDONE HCL 10 MG TABLET (FOR DETOX USE ONLY) PO ONE (13:45)
[2021-07-09] MEDS: chlordiazePOXIDE HCL 25 MG CAPSULE PO SCH ×2 (18:23→22:49)
[2021-07-09] MEDS: MELATONIN 5 MG TABLETS PO PRN (22:49)
[2021-07-09] MEDS: THIAMINE HCL 100 MG TABLET (FP) PO SCH (22:49)
[2021-07-10] MEDS: chlordiazePOXIDE HCL 25 MG CAPSULE PO SCH ×4 (05:41→23:54)
[2021-07-10] MEDS ORDERED: methaDONE HCL 10 MG TABLET (FOR DETOX USE ONLY) ONE (09:25)
[2021-07-10 10:17] LABS: HEMATOCRIT 45.6 % (35.4-49); HEMOGLOBIN 14.7 GM/dL (11.7-16.9); MCHC 32.1 g/dl (32.0-35.9); MEAN CELL VOLUME 83.9 fl (80-96); MEAN PLT VOLUME 7.9 fl (7.5-11.1); PLATELET COUNT 619 10^3/uL (134-434); RBC 5.44 M/mm3 (4.00-5.60); RDW 15.4 % (11.9-15.9); WHITE BLOOD COUNT 18.3 K/mm3 (4.0-10.0)
[2021-07-10 10:30] LABS: BLOOD UREA NITROGEN 21.9 mg/dL (7-18)
[2021-07-10 10:31] LABS: ALBUMIN 3.2 g/dl (3.4-5.0)
[2021-07-10 10:32] LABS: CREATININE 1.4 mg/dL (0.55-1.3)
[2021-07-10 10:33] LABS: BILIRUBIN,TOTAL 0.4 mg/dL (0.2-1); CALCIUM 9.3 mg/dL (8.5-10.1); TOT PROT 7.2 g/dl (6.4-8.2)
[2021-07-10] MEDS: cloNIDine HCL 0.1 MG TABLET PO SCH (10:42)
[2021-07-10] MEDS: amLODIPine BESYLATE 10 MG TABLET (FP) PO SCH (10:42)
[2021-07-10] MEDS: PRENATAL VITAMINS W/ FOLIC ACID TABLET (FP) PO SCH (10:42)
[2021-07-10] MEDS: LISINOPRIL 20 MG TABLET PO SCH ×2 (11:00→23:55)
[2021-07-10] MEDS ORDERED: TRIMETHOBENZAMIDE HCL 200MG/2ML INJ IM ONE (23:29)
[2021-07-10] MEDS: THIAMINE HCL 100 MG TABLET (FP) PO SCH (23:55)
[2021-07-11] MEDS: chlordiazePOXIDE HCL 25 MG CAPSULE PO SCH ×4 (06:37→22:50)
[2021-07-11] MEDS: cloNIDine HCL 0.1 MG TABLET PO PRN ×2 (08:15→17:25)
[2021-07-11] MEDS ORDERED: methaDONE HCL 10 MG TABLET (FOR DETOX USE ONLY) PO ONE (10:00)
[2021-07-11] MEDS: amLODIPine BESYLATE 10 MG TABLET (FP) PO SCH (11:05)
[2021-07-11] MEDS: LISINOPRIL 20 MG TABLET PO SCH ×2 (11:05→22:48)
[2021-07-11] MEDS: cloNIDine HCL 0.1 MG TABLET PO SCH (11:05)
[2021-07-11] MEDS: PRENATAL VITAMINS W/ FOLIC ACID TABLET (FP) PO SCH (11:05)
[2021-07-11 13:31] LABS: CALCIUM 9.8 mg/dL (8.5-10.1)
[2021-07-11 13:32] LABS: ALBUMIN 3.2 g/dl (3.4-5.0)
[2021-07-11 13:41] LABS: HEMATOCRIT 38.9 % (35.4-49); HEMOGLOBIN 12.8 GM/dL (11.7-16.9); MCH 27.3 pg (25.7-33.7); MEAN CELL VOLUME 82.7 fl (80-96); MEAN PLT VOLUME 7.5 fl (7.5-11.1); PLATELET COUNT 516 10^3/uL (134-434); RDW 15.3 % (11.9-15.9); WHITE BLOOD COUNT 12.9 K/mm3 (4.0-10.0)
[2021-07-11 14:45] LABS: BILIRUBIN,TOTAL 0.2 mg/dL (0.2-1); TOT PROT 7.1 g/dl (6.4-8.2)
[2021-07-11 14:47] LABS: ANISOCYTOSIS 0; HELMET CELLS 0; HOWELL-JOLLY BODIES 0; MACROCYTOSIS 0; OVALOCYTE 0; PLATELET ESTIMATE INCREASED; ROULEAU 0; SICKELED CELLS 0; TARGET CELLS 0; TEAR DROP CELLS 0; TOXIC GRANULATION 0
[2021-07-11 15:29] LABS: CREATININE 2.1 mg/dL (0.55-1.3)
[2021-07-11] MEDS: THIAMINE HCL 100 MG TABLET (FP) PO SCH (22:48)
[2021-07-11] MEDS: hydrOXYzine PAMOATE 25 MG CAPSULE (FP) PO PRN (22:49)
[2021-07-12] MEDS ORDERED: chlordiazePOXIDE HCL 10 MG CAPSULE PO PRN
[2021-07-12] MEDS: chlordiazePOXIDE HCL 10 MG CAPSULE PO SCH ×4 (05:56→22:26)
[2021-07-12] MEDS ORDERED: methaDONE HCL 10 MG TABLET (FOR DETOX USE ONLY) ONE (08:54)
[2021-07-12] MEDS: PRENATAL VITAMINS W/ FOLIC ACID TABLET (FP) PO SCH (11:01)
[2021-07-12] MEDS: cloNIDine HCL 0.1 MG TABLET PO SCH (11:01)
[2021-07-12] MEDS: amLODIPine BESYLATE 10 MG TABLET (FP) PO SCH (11:01)
[2021-07-12] MEDS: hydrOXYzine PAMOATE 25 MG CAPSULE (FP) PO PRN ×2 (11:01→22:27)
[2021-07-12] MEDS: LISINOPRIL 20 MG TABLET PO SCH ×2 (11:01→22:24)
[2021-07-12] MEDS: THIAMINE HCL 100 MG TABLET (FP) PO SCH (22:24)
[2021-07-12] MEDS: MELATONIN 5 MG TABLETS PO PRN (22:24)
[2021-07-13] MEDS: chlordiazePOXIDE HCL 10 MG CAPSULE PO SCH ×2 (05:46→18:13)
[2021-07-13] MEDS ORDERED: methaDONE HCL 10 MG TABLET (FOR DETOX USE ONLY) PO ONE (10:00)
[2021-07-13] MEDS: METHOCARBAMOL 500 MG TABLET PO PRN (10:29)
[2021-07-13] MEDS: PRENATAL VITAMINS W/ FOLIC ACID TABLET (FP) PO SCH (10:29)
[2021-07-13] MEDS: cloNIDine HCL 0.1 MG TABLET PO SCH (10:30)
[2021-07-13] MEDS: amLODIPine BESYLATE 10 MG TABLET (FP) PO SCH (10:30)
[2021-07-13] MEDS: LISINOPRIL 20 MG TABLET PO SCH ×2 (10:30→22:22)
[2021-07-13] MEDS: THIAMINE HCL 100 MG TABLET (FP) PO SCH (22:22)
[2021-07-13] MEDS: hydrOXYzine PAMOATE 25 MG CAPSULE (FP) PO PRN (22:24)
[2021-07-14] MEDS ORDERED: chlordiazePOXIDE HCL 10 MG CAPSULE PO ONE (05:00)
[2021-07-14 09:14] VITALS: BP 156/88; PULSE 88; TEMP 98
[2021-07-14] MEDS: LISINOPRIL 20 MG TABLET PO SCH (10:49)
[2021-07-14] MEDS: cloNIDine HCL 0.1 MG TABLET PO SCH (10:49)
[2021-07-14] MEDS: PRENATAL VITAMINS W/ FOLIC ACID TABLET (FP) PO SCH (10:49)
[2021-07-14] MEDS: amLODIPine BESYLATE 10 MG TABLET (FP) PO SCH (10:49)
== END 2021-07-14 10:58 | disposition other institution (70) | DRG 773 ==
LOC: YASAS 17:37 → Y6N 07-09 03:26 → UNDOADMIN 07-09 03:26 → Y6N 07-11 21:56
PROVIDERS: ADMIT Allergy & Immunology; ATTEND Allergy & Immunology
PROC: HZ2ZZZZ Detoxification Services for Substance Abuse Treatment (ICD-10-PCS; principal; 2021-07-09)
DX: F11.23 Opioid dependence with withdrawal (principal); F10.230 Alcohol dependence with withdrawal, uncomplicated; F14.20 Cocaine dependence, uncomplicated; F41.8 Other specified anxiety disorders; F32.A Depression, unspecified; I10 Essential (primary) hypertension; J45.20 Mild intermittent asthma, uncomplicated; D72.819 Decreased white blood cell count, unspecified; R79.89 Other specified abnormal findings of blood chemistry; Z88.0 Allergy status to penicillin; Z91.013 Allergy to seafood; Z91.018 Allergy to other foods; Z59.00 Homelessness unspecified
CPT/HCPCS: 36415; 80053; 85025; 85027; 86780; C9803; J0735; U0003; U0005

== ENCOUNTER 2021-07-13 14:41 | Emergency (ER) | payer OTHER ==
[2021-07-13 15:15] VITALS: BP 116/71; PULSE 86; TEMP 98.7; BMI 21.2
[2021-07-13 15:55] LABS: BASO % 1.1 % (0-2.0); EOS % 3.2 % (0-4.5); HEMATOCRIT 32.7 % (35.4-49); HEMOGLOBIN 10.4 GM/dL (11.7-16.9); LYMPH % 16.9 % (8-40); MCH 26.8 pg (25.7-33.7); MCHC 31.9 g/dl (32.0-35.9); MEAN CELL VOLUME 84.2 fl (80-96); MONO % 10.8 % (3.8-10.2); PLATELET COUNT 437 10^3/uL (134-434); RBC 3.88 M/mm3 (4.00-5.60); RDW 15.5 % (11.9-15.9); WHITE BLOOD COUNT 8.9 K/mm3 (4.0-10.0)
[2021-07-13 16:19] LABS: ALBUMIN 2.9 g/dl (3.4-5.0); CALCIUM 8.8 mg/dL (8.5-10.1)
[2021-07-13 16:20] LABS: BLOOD UREA NITROGEN 24.3 mg/dL (7-18)
[2021-07-13 16:23] LABS: CREATININE 1.6 mg/dL (0.55-1.3)
[2021-07-13 16:24] LABS: BILIRUBIN,TOTAL 0.2 mg/dL (0.2-1); TOT PROT 6.4 g/dl (6.4-8.2)
[2021-07-13] MEDS ORDERED: SODIUM CHLORIDE 0.9% 500 ML INFUS.BAG IV ONE (16:46)
== END 2021-07-13 17:30 | disposition home or self-care (01) ==
LOC: JER 14:41
DX: R94.4 Abnormal results of kidney function studies (principal)
CPT/HCPCS: 36415; 80053; 84484; 85025; 93005; 93010; 99284-25

== ENCOUNTER 2021-08-12 19:17 | Inpatient (IN) | payer OTHER ==
[2021-08-12 20:41] VITALS: BMI 24.0
[2021-08-12] MEDS ORDERED: ONDANSETRON *ODT* 4 MG TABLET SL PRN (21:28)
[2021-08-12] MEDS ORDERED: MAG HYDROX/AL HYDROX/SIMETH 30 ML UNIT-DOSE CUP PO PRN (21:28)
[2021-08-12] MEDS ORDERED: ACETAMINOPHEN 325 MG TABLET (FP) PO PRN ×2 (21:28)
[2021-08-12] MEDS ORDERED: MAGNESIUM CITRATE 300 ML BOTTLE PO PRN (21:28)
[2021-08-12] MEDS ORDERED: P-EPHED 60MG/TRIPROLIDI 2.5MG TABLET PO PRN (21:28)
[2021-08-12] MEDS ORDERED: BISMUTH SUBSALICYLATE 524 MG/30 ML PO PRN (21:28)
[2021-08-12] MEDS ORDERED: LOPERAMIDE HCL 2 MG CAPSULE PO PRN (21:28)
[2021-08-12] MEDS ORDERED: IBUPROFEN 400 MG TABLET (FP) PO PRN (21:28)
[2021-08-12] MEDS ORDERED: MENTHOL/PHENOL 1 EACH UD MM PRN (21:28)
[2021-08-12] MEDS ORDERED: MELATONIN 5 MG TABLETS PO PRN (21:28)
[2021-08-12] MEDS ORDERED: DICYCLOMINE HCL 10 MG CAPSULE PO PRN (21:28)
[2021-08-12] MEDS ORDERED: NICOTINE POLACRILEX 2 MG GUM BUC PRN (21:28)
[2021-08-12] MEDS ORDERED: MAGNESIUM HYDROX 2400MG/30ML ORAL SUSPENSION 30 ML CUP PO PRN (21:28)
[2021-08-12] MEDS ORDERED: methaDONE HCL 10 MG TABLET (FOR DETOX USE ONLY) PO ONE (21:31)
[2021-08-13] MEDS ORDERED: methaDONE HCL 10 MG TABLET (FOR DETOX USE ONLY) PO ONE ×2 (03:46→10:00)
[2021-08-13] MEDS: amLODIPine BESYLATE 10 MG TABLET (FP) PO SCH ×2 (03:47→11:01)
[2021-08-13] MEDS: THIAMINE HCL 100 MG TABLET (FP) PO SCH ×2 (03:47→22:40)
[2021-08-13] MEDS: cloNIDine HCL 0.1 MG TABLET PO PRN ×3 (03:53→17:41)
[2021-08-13] MEDS: hydrOXYzine PAMOATE 25 MG CAPSULE (FP) PO PRN ×3 (07:57→17:41)
[2021-08-13] MEDS: METHOCARBAMOL 500 MG TABLET PO PRN ×2 (11:01→17:41)
[2021-08-13] MEDS: PRENATAL VITAMINS W/ FOLIC ACID TABLET (FP) PO SCH (11:02)
[2021-08-13] MEDS ORDERED: LISINOPRIL 20 MG TABLET PO SCH (11:30)
[2021-08-13] MEDS: LISINOPRIL 20 MG TABLET PO SCH ×2 (12:16→22:41)
[2021-08-13 15:28] LABS: HEMATOCRIT 37.5 % (35.4-49); HEMOGLOBIN 12.2 GM/dL (11.7-16.9); MCH 26.9 pg (25.7-33.7); MCHC 32.5 g/dl (32.0-35.9); MEAN CELL VOLUME 82.8 fl (80-96); MEAN PLT VOLUME 7.7 fl (7.5-11.1); PLATELET COUNT 448 10^3/uL (134-434); RBC 4.53 M/mm3 (4.00-5.60); RDW 16.3 % (11.9-15.9); WHITE BLOOD COUNT 6.9 K/mm3 (4.0-10.0)
[2021-08-13 15:51] LABS: CALCIUM 9.5 mg/dL (8.5-10.1)
[2021-08-13 15:52] LABS: ALBUMIN 3.4 g/dl (3.4-5.0); BLOOD UREA NITROGEN 22.4 mg/dL (7-18)
[2021-08-13 15:55] LABS: CREATININE 1.5 mg/dL (0.55-1.3)
[2021-08-13 15:56] LABS: BILIRUBIN,TOTAL 0.2 mg/dL (0.2-1); TOT PROT 6.9 g/dl (6.4-8.2)
[2021-08-14] MEDS ORDERED: methaDONE HCL 10 MG TABLET (FOR DETOX USE ONLY) PO ONE (10:00)
[2021-08-14 11:09] LABS: SARS-CoV-2 NAA Not Detected (Not Detected)
[2021-08-14] MEDS: METHOCARBAMOL 500 MG TABLET PO PRN (11:19)
[2021-08-14] MEDS: PRENATAL VITAMINS W/ FOLIC ACID TABLET (FP) PO SCH (11:19)
[2021-08-14] MEDS: amLODIPine BESYLATE 10 MG TABLET (FP) PO SCH (11:19)
[2021-08-14] MEDS: LISINOPRIL 20 MG TABLET PO SCH (11:19)
[2021-08-14] MEDS: hydrOXYzine PAMOATE 25 MG CAPSULE (FP) PO PRN (11:19)
[2021-08-14 13:19] VITALS: BP 161/99; PULSE 76; TEMP 98
[2021-08-16] MEDS ORDERED: methaDONE HCL 10 MG TABLET (FOR DETOX USE ONLY) PO ONE (10:00)
== END 2021-08-14 09:35 | disposition left against medical advice (07) | DRG 770 ==
LOC: YASAS 19:17 → Y3N 08-13 02:13 → Y6N 08-13 02:56
PROVIDERS: ADMIT Allergy & Immunology; ATTEND Allergy & Immunology
PROC: HZ2ZZZZ Detoxification Services for Substance Abuse Treatment (ICD-10-PCS; principal; 2021-08-12)
DX: F11.23 Opioid dependence with withdrawal (principal); F14.20 Cocaine dependence, uncomplicated; F17.210 Nicotine dependence, cigarettes, uncomplicated; F19.24 Other psychoactive substance dependence with psychoactive substance-induced mood disorder; I10 Essential (primary) hypertension; G47.00 Insomnia, unspecified; R79.89 Other specified abnormal findings of blood chemistry; Z88.0 Allergy status to penicillin; Z91.013 Allergy to seafood; Z56.0 Unemployment, unspecified; Z59.00 Homelessness unspecified
CPT/HCPCS: 36415; 80053; 85027; 86780; C9803; J0735; U0003; U0005

== ENCOUNTER 2021-09-15 13:22 | Inpatient (IN) | payer OTHER ==
[2021-09-15 14:00] VITALS: BMI 24.9
[2021-09-15] MEDS ORDERED: ACETAMINOPHEN 325 MG TABLET (FP) PO PRN ×2 (14:49)
[2021-09-15] MEDS ORDERED: IBUPROFEN 400 MG TABLET (FP) PO PRN (14:49)
[2021-09-15] MEDS ORDERED: MAG HYDROX/AL HYDROX/SIMETH 30 ML UNIT-DOSE CUP PO PRN (14:49)
[2021-09-15] MEDS ORDERED: MAGNESIUM CITRATE 300 ML BOTTLE PO PRN (14:49)
[2021-09-15] MEDS ORDERED: ONDANSETRON *ODT* 4 MG TABLET SL PRN (14:49)
[2021-09-15] MEDS ORDERED: DICYCLOMINE HCL 10 MG CAPSULE PO PRN (14:49)
[2021-09-15] MEDS ORDERED: P-EPHED 60MG/TRIPROLIDI 2.5MG TABLET PO PRN (14:49)
[2021-09-15] MEDS ORDERED: LOPERAMIDE HCL 2 MG CAPSULE PO PRN (14:49)
[2021-09-15] MEDS ORDERED: MAGNESIUM HYDROX 2400MG/30ML ORAL SUSPENSION 30 ML CUP PO PRN (14:49)
[2021-09-15] MEDS ORDERED: BISMUTH SUBSALICYLATE 524 MG/30 ML PO PRN (14:49)
[2021-09-15] MEDS ORDERED: BENZOCAINE/MENTHOL (CHLORASEPTIC ) LOZENGE MM PRN (14:49)
[2021-09-15] MEDS ORDERED: cloNIDine HCL 0.1 MG TABLET PO ONE (21:37)
[2021-09-15] MEDS: hydrOXYzine PAMOATE 25 MG CAPSULE (FP) PO PRN (22:49)
[2021-09-15] MEDS: METHOCARBAMOL 500 MG TABLET PO PRN (22:49)
[2021-09-15] MEDS: MELATONIN 5 MG TABLETS PO PRN (22:49)
[2021-09-15] MEDS: THIAMINE HCL 100 MG TABLET (FP) PO SCH (22:49)
[2021-09-16] MEDS ORDERED: diazePAM 5 MG TABLET PO PRN (09:49)
[2021-09-16] MEDS ORDERED: methaDONE HCL 10 MG TABLET (FOR DETOX USE ONLY) PO ONE (09:49)
[2021-09-16] MEDS ORDERED: diazePAM 5 MG TABLET PO ONE (09:49)
[2021-09-16] MEDS: diazePAM 5 MG TABLET PO SCH ×4 (10:27→22:35)
[2021-09-16] MEDS: amLODIPine BESYLATE 10 MG TABLET (FP) PO SCH (10:45)
[2021-09-16] MEDS: PRENATAL VITAMINS W/ FOLIC ACID TABLET (FP) PO SCH (10:47)
[2021-09-16 11:28] LABS: HEMOGLOBIN 11.9 GM/dL (11.7-16.9); MCH 27.3 pg (25.7-33.7); MCHC 33.1 g/dl (32.0-35.9); MEAN CELL VOLUME 82.5 fl (80-96); PLATELET COUNT 364 10^3/uL (134-434); RBC 4.36 M/mm3 (4.00-5.60)
[2021-09-16 11:46] LABS: ALBUMIN 3.3 g/dl (3.4-5.0); CALCIUM 8.9 mg/dL (8.5-10.1)
[2021-09-16 11:47] LABS: BLOOD UREA NITROGEN 22.6 mg/dL (7-18)
[2021-09-16 11:49] LABS: CREATININE 1.5 mg/dL (0.55-1.3)
[2021-09-16 11:51] LABS: BILIRUBIN,TOTAL 0.3 mg/dL (0.2-1); TOT PROT 6.7 g/dl (6.4-8.2)
[2021-09-16] MEDS: THIAMINE HCL 100 MG TABLET (FP) PO SCH (22:35)
[2021-09-16] MEDS: METHOCARBAMOL 500 MG TABLET PO PRN (22:35)
[2021-09-16] MEDS: MELATONIN 5 MG TABLETS PO PRN (22:35)
[2021-09-16] MEDS: cloNIDine HCL 0.1 MG TABLET PO PRN (22:36)
[2021-09-17] MEDS: diazePAM 5 MG TABLET PO SCH ×3 (05:41→22:42)
[2021-09-17] MEDS ORDERED: methaDONE HCL 10 MG TABLET (FOR DETOX USE ONLY) ONE (09:55)
[2021-09-17] MEDS: METHOCARBAMOL 500 MG TABLET PO PRN (10:12)
[2021-09-17] MEDS: amLODIPine BESYLATE 10 MG TABLET (FP) PO SCH (10:13)
[2021-09-17] MEDS: PRENATAL VITAMINS W/ FOLIC ACID TABLET (FP) PO SCH (10:13)
[2021-09-17] MEDS: NICOTINE 10 MG CARTRIDGE (INHALER) IH PRN (13:55)
[2021-09-17] MEDS: THIAMINE HCL 100 MG TABLET (FP) PO SCH (22:42)
[2021-09-17] MEDS: cloNIDine HCL 0.1 MG TABLET PO PRN (22:44)
[2021-09-17] MEDS: MELATONIN 5 MG TABLETS PO PRN (22:45)
[2021-09-18] MEDS: hydrOXYzine PAMOATE 25 MG CAPSULE (FP) PO PRN ×2 (05:47→11:49)
[2021-09-18] MEDS ORDERED: diazePAM 5 MG TABLET PO SCH (06:00)
[2021-09-18 08:53] VITALS: TEMP 97
[2021-09-18] MEDS ORDERED: methaDONE HCL 10 MG TABLET (FOR DETOX USE ONLY) PO ONE (10:00)
[2021-09-18] MEDS: NICOTINE 10 MG CARTRIDGE (INHALER) IH PRN (10:42)
[2021-09-18] MEDS: PRENATAL VITAMINS W/ FOLIC ACID TABLET (FP) PO SCH (10:42)
[2021-09-18] MEDS: amLODIPine BESYLATE 10 MG TABLET (FP) PO SCH (10:45)
[2021-09-18 11:10] LABS: BLOOD UREA NITROGEN 21.2 mg/dL (7-18)
[2021-09-18 11:13] LABS: CREATININE 1.4 mg/dL (0.55-1.3)
[2021-09-18] MEDS: cloNIDine HCL 0.1 MG TABLET PO PRN (12:59)
[2021-09-18 13:02] VITALS: BP 144/92; PULSE 110
[2021-09-19] MEDS ORDERED: diazePAM 5 MG TABLET PO ONE (06:00)
[2021-09-20] MEDS ORDERED: methaDONE HCL 10 MG TABLET (FOR DETOX USE ONLY) PO ONE (10:00)
== END 2021-09-18 17:05 | disposition left against medical advice (07) | DRG 770 ==
LOC: YASAS 13:22 → Y3N 15:01 → UNDOADMIN 15:01
PROVIDERS: ADMIT Allergy & Immunology; ATTEND Allergy & Immunology
PROC: HZ2ZZZZ Detoxification Services for Substance Abuse Treatment (ICD-10-PCS; principal; 2021-09-15)
DX: F11.23 Opioid dependence with withdrawal (principal); F10.230 Alcohol dependence with withdrawal, uncomplicated; F14.20 Cocaine dependence, uncomplicated; F17.210 Nicotine dependence, cigarettes, uncomplicated; I10 Essential (primary) hypertension; R79.89 Other specified abnormal findings of blood chemistry; Z88.0 Allergy status to penicillin; Z91.013 Allergy to seafood; Z91.018 Allergy to other foods; Z59.00 Homelessness unspecified
CPT/HCPCS: 36415; 80053; 82565; 84520; 85027; 86780; 87811; C9803-CS; J0735; U0003; U0005

== ENCOUNTER 2023-07-27 15:44 | Inpatient (IN) | payer OTHER ==
[2023-07-27 16:44] VITALS: BMI 23.4
[2023-07-27] MEDS ORDERED: ACETAMINOPHEN 325 MG TABLET (FP) PO PRN (18:54)
[2023-07-27] MEDS ORDERED: P-EPHED 60MG/TRIPROLIDI 2.5MG TABLET PO PRN (18:54)
[2023-07-27] MEDS ORDERED: MAG HYDROX/AL HYDROX/SIMETH 30 ML UNIT-DOSE CUP PO PRN (18:54)
[2023-07-27] MEDS ORDERED: LOPERAMIDE HCL 2 MG CAPSULE PO PRN (18:54)
[2023-07-27] MEDS ORDERED: IBUPROFEN 400 MG TABLET (FP) PO PRN (18:54)
[2023-07-27] MEDS ORDERED: BENZONATATE 200 MG CAPSULE PO PRN (18:54)
[2023-07-27] MEDS ORDERED: NALOXONE HCL 0.4 MG/ML VIAL IM PRN (18:54)
[2023-07-27] MEDS ORDERED: DOCUSATE SODIUM 100 MG CAPSULE (FP) PO PRN (18:54)
[2023-07-27] MEDS ORDERED: NALOXONE HCL (KLOXXADO) 8 MG SPRAY NS PRN (18:54)
[2023-07-27] MEDS ORDERED: BENZOCAINE/MENTHOL (CHLORASEPTIC ) LOZENGE MM PRN (18:54)
[2023-07-27] MEDS ORDERED: NICOTINE POLACRILEX 2 MG GUM BUC PRN (18:54)
[2023-07-27] MEDS ORDERED: POLYETHYLENE GLYCOL (HEALTHYLAX) 3350 17 GM PACKET PO PRN (18:54)
[2023-07-27] MEDS ORDERED: IBUPROFEN 600 MG TABLET (FP) PO PRN (18:54)
[2023-07-27] MEDS ORDERED: MAGNESIUM HYDROX 2400MG/30ML ORAL SUSPENSION 30 ML CUP PO PRN (18:54)
[2023-07-27] MEDS: MELATONIN 5 MG TABLETS PO SCH (22:54)
[2023-07-27] MEDS: hydrOXYzine PAMOATE 25 MG CAPSULE (FP) PO PRN (22:55)
[2023-07-27] MEDS: THIAMINE 100 MG TABLET PO SCH (22:55)
[2023-07-27] MEDS ORDERED: TUBERCULIN PPD 5 TU/0.1ML SYRINGE (IN PATIENT USE ONLY) ID ONE (22:55)
[2023-07-27] MEDS: guaiFENesin 600 MG TABLET.ER (FP) PO PRN (22:56)
[2023-07-28 09:33] VITALS: RESP 18
[2023-07-28] MEDS ORDERED: methaDONE HCL 10 MG TABLET PO SCH (10:30)
[2023-07-28 10:37] LABS: HEMATOCRIT 31.6 % (35.4-49); HEMOGLOBIN 10.2 GM/dL (11.7-16.9); MCH 27.3 pg (25.7-33.7); MCHC 32.4 g/dl (32.0-35.9); MEAN CELL VOLUME 84.3 fl (80-96); MEAN PLT VOLUME 7.4 fl (7.5-11.1); PLATELET COUNT 364 10^3/uL (134-434); RBC 3.75 M/mm3 (4.00-5.60); RDW 15.3 % (11.9-15.9); WHITE BLOOD COUNT 9.4 K/mm3 (4.0-10.0)
[2023-07-28 10:50] LABS: CHLORIDE 106 mmol/L (98-107); POTASSIUM 4.9 mmol/L (3.5-5.1); SODIUM 138 mmol/L (136-145)
[2023-07-28 10:57] LABS: CALCIUM 8.6 mg/dL (8.5-10.1)
[2023-07-28 10:58] LABS: ALBUMIN 2.7 g/dl (3.4-5.0); ANION GAP 5 mmol/L (4-13); BLOOD UREA NITROGEN 32.4 mg/dL (7-18); CO2 27 mmol/L (21-32); GLUCOSE,RANDOM 101 mg/dL (74-106)
[2023-07-28 11:00] LABS: SGOT/AST 17 U/L (15-37)
[2023-07-28 11:01] LABS: CREATININE 2.2 mg/dL (0.55-1.3); SGPT/ALT 29 U/L (13-61)
[2023-07-28 11:02] LABS: BILIRUBIN,TOTAL 0.2 mg/dL (0.2-1); TOT PROT 6.4 g/dl (6.4-8.2)
[2023-07-28 11:03] LABS: ALK PHOS 68 U/L (45-117)
[2023-07-28 11:29] LABS: SYPHILIS W/ RPR CONF NON-REACTIVE (NONREACTIVE)
[2023-07-28] MEDS: methaDONE 80 MG, methaDONE 10 MG PO ONE (11:51)
[2023-07-28] MEDS: PRENATAL VITAMINS W/ FOLIC ACID TABLET (FP) PO SCH (11:51)
[2023-07-28] MEDS: TUBERCULIN PPD 5 TU/0.1ML SYRINGE (IN PATIENT USE ONLY) ID ONE (11:54)
[2023-07-28 12:50] VITALS: BP 160/97; PULSE 65; TEMP 96.8
[2023-07-29] MEDS ORDERED: methaDONE 80 MG, methaDONE 10 MG PO SCH (06:00)
== END 2023-07-28 15:54 | disposition left against medical advice (07) | DRG 770 ==
LOC: YASAS 15:44 → Y3NR 21:27
PROVIDERS: ADMIT Allergy & Immunology; ATTEND Psychiatry & Neurology Pain Medicine
PROC: HZ42ZZZ Group Counseling for Substance Abuse Treatment, Cognitive-Behavioral (ICD-10-PCS; principal; 2023-07-27)
DX: F11.20 Opioid dependence, uncomplicated (principal); F10.20 Alcohol dependence, uncomplicated; F17.210 Nicotine dependence, cigarettes, uncomplicated; F32.A Depression, unspecified; I10 Essential (primary) hypertension; J45.20 Mild intermittent asthma, uncomplicated; Z88.0 Allergy status to penicillin
CPT/HCPCS: 36415; 80053; 80305; 80307; 85027; 86780; 86803; 87635; 93005; 93010

== ENCOUNTER 2024-04-16 15:07 | Inpatient (IN) | payer OTHER ==
[2024-04-16 15:37] VITALS: BMI 24.7
[2024-04-16] MEDS ORDERED: BISMUTH SUBSALICYLATE 524 MG/30 ML PO PRN (18:47)
[2024-04-16] MEDS ORDERED: ACETAMINOPHEN 325 MG TABLET (FP) PO PRN (18:47)
[2024-04-16] MEDS ORDERED: NALOXONE (NARCAN) HCL 4 MG/0.1 ML SPRAY NS PRN (18:47)
[2024-04-16] MEDS ORDERED: BENZOCAINE/MENTHOL (CHLORASEPTIC ) LOZENGE MM PRN (18:47)
[2024-04-16] MEDS ORDERED: LOPERAMIDE HCL 2 MG CAPSULE PO PRN (18:47)
[2024-04-16] MEDS ORDERED: DICYCLOMINE HCL 10 MG CAPSULE PO PRN (18:47)
[2024-04-16] MEDS ORDERED: ONDANSETRON *ODT* 4 MG TABLET SL PRN (18:47)
[2024-04-16] MEDS ORDERED: POLYETHYLENE GLYCOL (HEALTHYLAX) 3350 17 GM PACKET PO PRN (18:47)
[2024-04-16] MEDS ORDERED: MAG HYDROX/AL HYDROX/SIMETH 30 ML UNIT-DOSE CUP PO PRN (18:47)
[2024-04-16] MEDS ORDERED: MAGNESIUM HYDROX 2400MG/30ML ORAL SUSPENSION 30 ML CUP PO PRN (18:47)
[2024-04-16] MEDS ORDERED: IBUPROFEN 600 MG TABLET (FP) PO PRN (18:47)
[2024-04-16] MEDS ORDERED: BENZONATATE 200 MG CAPSULE PO PRN (18:47)
[2024-04-16] MEDS ORDERED: IBUPROFEN 400 MG TABLET (FP) PO PRN (18:47)
[2024-04-16] MEDS ORDERED: guaiFENesin 600 MG TABLET.ER (FP) PO PRN (18:47)
[2024-04-16] MEDS: amLODIPine BESYLATE 10 MG TABLET (FP) PO SCH (20:21)
[2024-04-16] MEDS: hydrOXYzine PAMOATE 25 MG CAPSULE (FP) PO PRN (22:11)
[2024-04-16] MEDS: METHOCARBAMOL 500 MG TABLET PO PRN (22:11)
[2024-04-16] MEDS: MELATONIN 5 MG TABLETS PO SCH (22:11)
[2024-04-16] MEDS: THIAMINE 100 MG TABLET PO SCH (22:11)
[2024-04-17 10:23] LABS: MCH 27.4 pg (25.7-33.7); MCHC 32.3 g/dl (32.0-35.9); MEAN CELL VOLUME 84.8 fl (80-96); MEAN PLT VOLUME 7.5 fl (7.5-11.1); PLATELET COUNT 380 10^3/uL (134-434); RBC 4.01 M/mm3 (4.00-5.60); RDW 15.2 % (11.9-15.9); WHITE BLOOD COUNT 7.9 K/mm3 (4.0-10.0)
[2024-04-17 10:25] LABS: CHLORIDE 109 mmol/L (98-107); POTASSIUM 4.2 mmol/L (3.5-5.1); SODIUM 140 mmol/L (136-145)
[2024-04-17 10:27] LABS: BLOOD UREA NITROGEN 34.6 mg/dL (7-18); CALCIUM 8.5 mg/dL (8.5-10.1)
[2024-04-17 10:28] LABS: ALBUMIN 2.8 g/dl (3.4-5.0); ANION GAP 4 mmol/L (4-13); CO2 27 mmol/L (21-32); GLUCOSE,RANDOM 84 mg/dL (74-106)
[2024-04-17 10:31] LABS: CREATININE 1.9 mg/dL (0.55-1.3); SGOT/AST 12 U/L (15-37); SGPT/ALT 21 U/L (13-61)
[2024-04-17 10:32] LABS: BILIRUBIN,TOTAL 0.4 mg/dL (0.2-1); TOT PROT 5.7 g/dl (6.4-8.2)
[2024-04-17 10:33] LABS: ALK PHOS 71 U/L (45-117)
[2024-04-17] MEDS ORDERED: ALBUTEROL SO4 HFA INHALER IH PRN (10:56)
[2024-04-17] MEDS: PRENATAL VITAMINS W/ FOLIC ACID TABLET (FP) PO SCH (10:56)
[2024-04-17] MEDS ORDERED: methaDONE HCL 10 MG TABLET (FOR DETOX USE ONLY) PO ONE (13:46)
[2024-04-17] MEDS: amLODIPine BESYLATE 10 MG TABLET (FP) PO ONE (14:38)
[2024-04-17] MEDS: diazePAM 5 MG TABLET PO PRN (14:39)
[2024-04-17] MEDS: diazePAM 5 MG TABLET PO SCH (17:17)
[2024-04-17] MEDS: cloNIDine HCL 0.1 MG TABLET PO PRN (20:14)
[2024-04-18 11:42] LABS: POTASSIUM 4.1 mmol/L (3.5-5.1)
[2024-04-18 11:43] LABS: ALBUMIN 2.9 g/dl (3.4-5.0); BLOOD UREA NITROGEN 28.6 mg/dL (7-18)
[2024-04-18 11:47] LABS: CREATININE 1.8 mg/dL (0.55-1.3)
[2024-04-18 11:48] LABS: BILIRUBIN,TOTAL 0.2 mg/dL (0.2-1); TOT PROT 5.8 g/dl (6.4-8.2)
[2024-04-19] MEDS: diazePAM 5 MG TABLET PO SCH (06:13)
[2024-04-19 08:56] VITALS: BP 154/107; PULSE 108; RESP 16; TEMP 97.9
[2024-04-19] MEDS: NALOXONE (NYS OPIOID OVERDOSE PROGRAM) 4 MG/0.1 ML SPRAY NS SCH (09:26)
[2024-04-19] MEDS ORDERED: methaDONE HCL 10 MG TABLET (FOR DETOX USE ONLY) PO ONE (10:00)
[2024-04-20] MEDS ORDERED: diazePAM 5 MG TABLET PO SCH (06:00)
[2024-04-21] MEDS ORDERED: diazePAM 5 MG TABLET PO ONE (06:00)
[2024-04-21] MEDS ORDERED: methaDONE HCL 10 MG TABLET (FOR DETOX USE ONLY) PO ONE (10:00)
== END 2024-04-19 09:26 | disposition home or self-care (01) | DRG 773 ==
LOC: YASAS 15:07 → Y3N 19:12
PROVIDERS: ADMIT Allergy & Immunology; ATTEND Surgery
PROC: HZ2ZZZZ Detoxification Services for Substance Abuse Treatment (ICD-10-PCS; principal; 2024-04-16)
DX: F11.23 Opioid dependence with withdrawal (principal); F10.230 Alcohol dependence with withdrawal, uncomplicated; F17.210 Nicotine dependence, cigarettes, uncomplicated; I12.9 Hypertensive chronic kidney disease with stage 1 through stage 4 chronic kidney disease, or unspecified chronic kidney disease; N18.9 Chronic kidney disease, unspecified; K21.9 Gastro-esophageal reflux disease without esophagitis; J45.20 Mild intermittent asthma, uncomplicated; Z59.00 Homelessness unspecified
CPT/HCPCS: 36415; 80053; 80305; 80307; 85027; 86780; 93005; 93010